=== PATIENT | female | born 1940 | race Caucasian/White ===

== ENCOUNTER → 2016-04-15 | Outpatient (CLI) | payer MEDICARE, BC ==
[2016-04-15 08:56] VITALS: BMI 39.6
== END | disposition home or self-care (01) ==
LOC: MNTWWP 08:31
PROVIDERS: ATTEND Orthopaedic Surgery
DX: Z71.3 Dietary counseling and surveillance (principal); E66.9 Obesity, unspecified
CPT/HCPCS: 97802

== ENCOUNTER → 2016-07-29 | Outpatient (CLI) | payer MEDICARE, BC ==
--- NOTE | 2016-07-29 23:53 | MR ---
EXAMINATION TYPE: MR brain wo con DATE OF EXAM: 07/29/2016 12:09 PM COMPARISON: 04/03/2010 HISTORY: 75-year-old female with TIA TECHNIQUE: Multiplanar, multisequence images of the brain and brainstem were acquired without IV con trast. Diffusion weighted imaging is performed. FINDINGS: No evidence for acute infarction, hemorrhage, mass, mass effect, midline shift, herniation, effacemen t of basal cisterns, or extra-axial fluid collection. The ventricles and sulci are age appropriate with mild generalized supratentorial volume loss. Major intracranial flow voids are intact. T2/FLAIR weighted sequences show moderate patchy and confluent bright white matter change within the subcortical, deep, and periventricular white matter of both cerebral hemispheres and extensively thro ughout the bilateral paramedian herson. Overall appearance is relatively similar to 2010. Some lesions appear slightly larger suggesting some progression in the interval. Midline structures demonstrate normal morphology. The craniocervical junction is normal. Moderate mucosal thickening within the ethmoid air cells and mild within the frontal sinuses. Mastoid air cells well pneumatized. The globes are intact. IMPRESSION: 1. Overall stable mild generalized atrophy. No acute intracranial abnormality seen. 2. Chronic T2 bright white matter changes show relatively similar moderate patchy and confluent burde n. A few scattered foci may be larger suggesting slight interval progression in chronic small vessel ischemic disease from 2010. 3. Moderate chronic ethmoid and mild frontal sinus disease.
== END | disposition home or self-care (01) ==
LOC: RADMRIMAIN 11:38
PROVIDERS: ATTEND Psychiatry & Neurology Neurology
DX: G31.9 Degenerative disease of nervous system, unspecified (principal); G93.89 Other specified disorders of brain
CPT/HCPCS: 70551

== ENCOUNTER → 2016-08-09 | Outpatient (CLI) | payer MEDICARE, BC ==
--- NOTE | 2016-08-13 14:06 | MM ---
Reason for exam: screening (asymptomatic). Last mammogram was performed 1 year ago. History: Patient is postmenopausal. Physical Findings: A clinical breast exam by your physician is recommended on an annual basis and results should be correlated with mammographic findings. MG Screening Mammo w CAD Bilateral CC and MLO view(s) were taken. Prior study comparison: August 09, 2015, bilateral MG 3d screening mammo w/cad. July 29, 2014, bilateral MG screening mammo w CAD. July 29, 2013, bilateral MG screening mammo w CAD. There are scattered fibroglandular densities. There is no discrete abnormality. ASSESSMENT: Negative, BI-RAD 1 RECOMMENDATION: Routine screening mammogram of both breasts in 1 year.
== END | disposition home or self-care (01) ==
LOC: RADMAMWWP 09:38
PROVIDERS: ATTEND Family Medicine
DX: Z12.31 Encounter for screening mammogram for malignant neoplasm of breast (principal)

== ENCOUNTER → 2016-08-15 | Outpatient (CLI) | payer MEDICARE, BC ==
[2016-08-15 13:24] LABS: INR 1.1 (<1.1); Partial Thromboplastin Time 22.7 sec (22.0-30.0); Prothrombin Time 11.3 sec (9.0-12.0)
[2016-08-15 20:38] LABS: ANA w/Reflex to Titer NEGATIVE (NEGATIVE)
[2016-08-16 05:29] LABS: Cardiolipin Ab IgG <9.0 GPL (<15); Cardiolipin Ab IgM <9.0 MPL (<12.5)
== END | disposition home or self-care (01) ==
LOC: LABWHC1 12:37
PROVIDERS: ATTEND Psychiatry & Neurology Neurology
DX: R41.3 Other amnesia (principal); I67.9 Cerebrovascular disease, unspecified; I63.9 Cerebral infarction, unspecified
CPT/HCPCS: 36415; 82306; 82607; 82747; 83090; 85610; 85652; 85730; 86038; 86147

== ENCOUNTER 2017-03-25 06:13 | Day surgery (SDC) | payer MEDICARE, BC ==
[2017-03-19 23:24] VITALS: BMI 38.2
[~2017-03-25 06:13] MED LIST: ALPRAZolam 0.25 MG TAB PO PRN; ALPRAZolam 0.5 MG TAB PO PRN; ASPIRIN 325 MG TAB PO STA; ATORVASTATIN 80 MG TAB PO STA; NITROGLYCERIN SL TABS 0.4 MG TAB SUBLINGUAL PRN; SODIUM CHLORIDE 0.9% 1,000 ML in EMPTY BAG 1 BAG IV ONE
[2017-03-25 06:53] VITALS: TEMP 98.3
[2017-03-25 07:09] LABS: Glucose,Whole Blood 170 mg/dL (75-99)
[2017-03-25] MEDS ORDERED: MIDAZOLAM 2 MG/2 ML VIAL ONE (07:27)
[2017-03-25] MEDS ORDERED: LIDOCAINE 2% INJ 20 MG/ML (20 ML MDV) ONE (07:27)
[2017-03-25] MEDS ORDERED: diphenhydrAMINE 50 MG/ML 1 ML VIAL ONE (07:27)
[2017-03-25] MEDS ORDERED: VERAPAMIL 2.5 MG/ML 2 ML AMP ONE (07:28)
[2017-03-25] MEDS ORDERED: HEPARIN SODIUM 1,000 UN/ML (10ML VL) ONE (07:34)
[2017-03-25] MEDS ORDERED: methylPREDNISolone SOD SUCCI 125 MG/2 ML VIAL ONE (07:46)
[2017-03-25] MEDS ORDERED: methylPREDNISolone SOD SUCCI 125 MG/2 ML VIAL IVP ONE (07:47)
[2017-03-25] MEDS ORDERED: diphenhydrAMINE 50 MG/ML 1 ML VIAL IVP ONE (07:47)
[2017-03-25] MEDS: MIDAZOLAM 2 MG/2 ML VIAL IVP ONE ×2 (07:48→07:53)
[2017-03-25] MEDS ORDERED: LIDOCAINE 2% INJ 20 MG/ML SQ ONE (07:49)
[2017-03-25] MEDS ORDERED: HEPARIN SODIUM 1,000 UN/ML (10ML VL) IV ONE (07:53)
[2017-03-25] MEDS: VERAPAMIL SYRINGE (5 MG/10 ML) INTRAARTER ONE ×3 (07:54→08:03)
[2017-03-25] MEDS ORDERED: IODIXANOL 320 MG/ML 100 ML INTRAARTER ONE (08:02)
[2017-03-25] MEDS ORDERED: RX INFO: IV CONTRAST WAS GIVEN 1 EACH MISC MISCELLANE PRN (08:12)
[2017-03-25] MEDS ORDERED: SODIUM CHLORIDE 0.9% 1,000 ML IV SCH (08:15)
[2017-03-25] MEDS ORDERED: LOSARTAN 50 MG TAB PO STA (08:26)
[2017-03-25] MEDS ORDERED: amLODIPine 5 MG TAB PO STA (08:26)
--- NOTE | 2017-03-25 11:41 | CC ---
CARDIAC CATHETERIZATION REPORT DATE OF SERVICE: 03/25/2017 PERFORMING PHYSICIAN: Edd Mejia MD, potato chip packaging machine operator. PROCEDURE PERFORMED: 1. Selective right and left coronary angiogram. 2. Left heart catheterization. INDICATION: This is a pleasant 76-year-old female patient who was a patient of Dr. Estefany Mcleod in the past with a known history of coronary artery disease and prior stenting of the LAD in the proximal and mid portions as well as hypertension and dyslipidemia, was experiencing chest discomfort. She underwent a myocardial perfusion imaging stress test and that revealed an anterior ischemia. In view of that, heart catheterization was recommended. APPROACH: Right radial artery. COMPLICATION: None. LEVEL OF SEDATION: Moderate with sedation length of 16 minutes. PROCEDURE DESCRIPTION: After obtaining an informed consent, the patient was brought to the cardiac oil laboratory analyst. The right radial artery was cannulated using micropuncture technique, the micropuncture wire passed easily then I placed a 6-Luxembourger sheath in the right radial artery and subsequently I gave the patient 2 mg of verapamil IA and 10,000 units of heparin IV. After that, I did selective right and left coronary angiogram using JR4 and JL3.5 catheters. Left heart catheterization was performed using 6-Luxembourger pigtail catheter. The procedure was completed without any complication. SELECTIVE CORONARY ANGIOGRAM: 1. The RCA is a large caliber vessel and it is a dominant vessel. The RCA is calcified overall. The proximal RCA appeared to be angiographically normal. The mid RCA appeared to be angiographically normal as well and the RCA distally is angiographically normal and bifurcates into PDA and PLV branches. The ostial of the PDA has mild disease only and PLV branch appeared to be angiographically normal. 2. The left main has mild disease only. It bifurcates into the left circumflex and left anterior descending artery. 3. The left circumflex is a large caliber vessel and it is a codominant vessel. The proximal left circumflex appeared to have mild disease only. It gives rise into a large OM branch, which seems to be angiographically normal. The mid left circumflex is normal and the left circumflex distally is normal and bifurcates into PDA and PLV branches. Both are angiographically normal. 4. The left anterior descending artery; the proximal LAD is stented and the stent is patent. The LAD in the proximal portion gives rise into the first diagonal branch, which seems to be a small caliber vessel and seems to be angiographically normal. The mid LAD is stented as well and the LAD in the midportion gives rise into a second diagonal branch which seems to be angiographically normal. The LAD distally is angiographically normal. HEMODYNAMICS: The left ventricular end-diastolic pressure was about 16 mmHg and no gradient was identified across the aortic valve. CONCLUSION: 1. Calcified right and left coronary systems. 2. Patent stent in the proximal and mid LAD. POSTPROCEDURE MANAGEMENT: 1. Maximize medical treatment. 2. Follow up with the patient. MMODL / IJN: [id number] /
[2017-03-25 11:49] VITALS: BP 125/59; PULSE 68; RESP 18
--- NOTE | 2017-03-25 12:05 | LTR ---
March 25, 2017. Chad Jean DO Dear Chad: Ms. Roxanna Ferrera underwent a heart catheterization and that revealed patent stents in both the proximal and mid LAD. I want to thank you for allowing me to participate in her care and please do not hesitate to call if you have any questions or concerns. Sincerely, MMODL / IJN: [id number] /
== END 2017-03-25 13:03 | disposition home or self-care (01) ==
LOC: CATHCVL 06:13
PROVIDERS: ATTEND Internal Medicine Interventional Cardiology
DX: I25.110 Atherosclerotic heart disease of native coronary artery with unstable angina pectoris (principal); I25.84 Coronary atherosclerosis due to calcified coronary lesion; I10 Essential (primary) hypertension; Z95.5 Presence of coronary angioplasty implant and graft; Z87.891 Personal history of nicotine dependence; E78.00 Pure hypercholesterolemia, unspecified; E78.5 Hyperlipidemia, unspecified; E11.9 Type 2 diabetes mellitus without complications; Z79.84 Long term (current) use of oral hypoglycemic drugs; E03.9 Hypothyroidism, unspecified; Z82.49 Family history of ischemic heart disease and other diseases of the circulatory system; Z79.82 Long term (current) use of aspirin; Z79.899 Other long term (current) drug therapy; Z91.041 Radiographic dye allergy status
CPT/HCPCS: 93458; C1894; C1769; J2001; J2250; J1200; J2930; Q9967; J1644

== ENCOUNTER → 2017-08-15 | Outpatient (CLI) | payer MEDICARE, BC ==
--- NOTE | 2017-08-18 09:41 | MM ---
Reason for exam: screening (asymptomatic). Last mammogram was performed 1 year ago. History: Patient is postmenopausal. Physical Findings: A clinical breast exam by your physician is recommended on an annual basis and results should be correlated with mammographic findings. MG 3D Screening Mammo W/Cad Bilateral CC and MLO view(s) were taken. Prior study comparison: August 09, 2016, bilateral MG screening mammo w CAD. August 09, 2015, bilateral MG 3d screening mammo w/cad. There are scattered fibroglandular densities. There is a stable right breast upper outer quadrant mass at middle depth back to 2014. No suspicious abnormality. No significant changes when compared with prior studies. ASSESSMENT: Benign, BI-RAD 2 RECOMMENDATION: Routine screening mammogram of both breasts in 1 year.
== END | disposition home or self-care (01) ==
LOC: RADMAMWWP 08:58
PROVIDERS: ATTEND Family Medicine
DX: Z12.31 Encounter for screening mammogram for malignant neoplasm of breast (principal)
CPT/HCPCS: 77063; 77067

== ENCOUNTER 2017-08-17 18:08 | Emergency (ER) | payer MEDICARE, BC ==
[2017-08-17] MEDS ORDERED: KETOROLAC 30 MG/ML 1 ML VIAL IVP STA ×2 (18:45→21:01)
--- NOTE | 2017-08-17 18:47 | ED ---
Chest Pain HPI - General Chief Complaint: Chest Pain Stated Complaint: Chest pain Time Seen by Provider: 08/17/17 18:17 Source: patient, RN notes reviewed Mode of arrival: wheelchair Limitations: no limitations - History of Present Illness Initial Comments: Is a 76-year-old female with a history of a previous cholecystectomy who states she's had pain initially started in the right upper quadrant of the right lower chest across the middle of her lower chest into her epigastric region into the left. This may going on for about 2 weeks been intermittent currently at 7/10 severity but does get much worse it increases with certain movements and deep breathing. No cough fevers chills nausea vomiting sweats no trauma. No prior history of gastritis or ulcers. It's sharp and dull and achy and different times. No other modifying factors at this time MD Complaint: chest pain, other - Related Data Home Medications Medication Instructions Recorded Confirmed Aspirin 81 mg PO HS 03/28/14 08/17/17 Atenolol [Tenormin] 50 mg PO DAILY 03/28/14 08/17/17 Atorvastatin [Lipitor] 80 mg PO HS 03/28/14 08/17/17 Baclofen 10 mg PO TID 03/28/14 08/17/17 Cholecalciferol [Vitamin D3] 5,000 unit PO DAILY 03/28/14 08/17/17 Omeprazole [PriLOSEC] 20 mg PO DAILY 03/28/14 08/17/17 Alendronate Sodium [Fosamax] 70 mg PO CORDOVA 03/19/17 08/17/17 Cyanocobalamin (Vitamin B-12) 1 tab PO MOWEFR 03/19/17 08/17/17 [Vitamin B-12] Ferrous Sulfate [Iron (65 MG 325 mg PO DAILY 03/19/17 08/17/17 Elemental)] Furosemide [Lasix] 40 mg PO DAILY 03/19/17 08/17/17 Levothyroxine Sodium [Synthroid] 137 mcg PO QAM 03/19/17 08/17/17 Losartan Potassium 100 mg PO DAILY 03/19/17 08/17/17 Magnesium 400 mg PO DAILY 03/19/17 08/17/17 Meclizine [Antivert] 25 mg PO TID PRN 03/19/17 08/17/17 [place]-3 Fatty Acids [[place]-3] 1,000 mg PO BID 03/19/17 08/17/17 Potassium 99 mg PO DAILY 03/19/17 08/17/17 Potassium/Magnesium 1 tab PO DAILY 03/19/17 08/17/17 amLODIPine [Norvasc] 5 mg PO DAILY 03/19/17 08/17/17 Previous Rx's Medication Instructions Recorded Ketorolac [Toradol] 10 mg PO Q6HR #20 tab 08/17/17 Allergies Allergy/AdvReac Type Severity Reaction Status Date / Time Iodinated Contrast- Oral and Allergy Rash/Hives Verified 08/17/17 18:11 IV Dye [Iodinated Contrast Media - IV Dye] Review of Systems ROS Statement: Those systems with pertinent positive or pertinent negative responses have been documented in the HPI. ROS Other: All systems not noted in ROS Statement are negative. EKG Findings - EKG Results: EKG: interpreted by ARIANNA, sinus rhythm (Sinus rhythm rate 66. 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, denies seizures History of Any Multi-Drug Resistant Organisms: None Reported Past Surgical History: Heart Catheterization With Stent, Hysterectomy Additional Past Surgical History / Comment(s): 2 STENTS Past Anesthesia/Blood Transfusion Reactions: No Reported Reaction Date of Last Stent Placement:: 04/07/2013 Past Psychological History: Anxiety Smoking Status: Former smoker Past Alcohol Use History: None Reported Past Drug Use History: None Reported - Past Family History Mother Family Medical History: No Reported History General Exam - General Exam Comments Initial Comments: This is a well-developed well-nourished awake alert oriented 3 female Limitations: no limitations General appearance: alert, anxious Head exam: Present: atraumatic, normocephalic, normal inspection Eye exam: Present: normal appearance, PERRL, EOMI. Absent: scleral icterus, conjunctival injection, periorbital swelling ENT exam: Present: normal exam, mucous membranes moist Neck exam: Present: normal inspection. Absent: tenderness, meningismus, lymphadenopathy Respiratory exam: Present: normal lung sounds bilaterally, chest wall tenderness (Tennis palpation of the xiphoid step-off or crepitation). Absent: respiratory distress, wheezes, rales, rhonchi, stridor Cardiovascular Exam: Present: regular rate, normal rhythm, normal heart sounds. Absent: systolic murmur, diastolic murmur, rubs, gallop, clicks GI/Abdominal exam: Present: soft, tenderness (Epigastric tenderness palpation no guarding rebound masses or bruits), normal bowel sounds. Absent: distended, guarding, rebound, rigid Extremities exam: Present: normal inspection, full ROM, normal capillary refill. Absent: tenderness, pedal edema, joint swelling, calf tenderness Back exam: Present: normal inspection Neurological exam: Present: alert, oriented X3, CN II-XII intact Psychiatric exam: Present: normal affect, normal mood Skin exam: Present: warm, dry, intact, normal color. Absent: rash Course Vital Signs 08/17/17 08/17/17 08/17/17 18:10 18:49 19:27 Temperature 98.1 F 98.4 F Pulse Rate 65 65 62 Respiratory 20 18 18 Rate Blood Pressure 157/65 157/59 162/73 O2 Sat by Pulse 100 98 99 Oximetry 08/17/17 21:00 Temperature Pulse Rate 54 L Respiratory 18 Rate Blood Pressure 150/67 O2 Sat by Pulse 97 Oximetry Chest Pain MDM - MDM I did review the imaging and reports no acute findings. Patient was getting relief from the initial medication the presentation is more consistent with muscle scalp no pain. Patient will be discharged she does have hypomagnesemia she'll be given supplements. She'll follow-up with her doctor return when necessary Disposition Clinical Impression: Chest wall syndrome, Abdominal wall pain Disposition: HOME SELF-CARE Condition: Good Instructions: Abdominal Pain (ED), Chest Wall Pain (ED) Prescriptions: Ketorolac [Toradol] 10 mg PO Q6HR #20 tab Is patient prescribed a controlled substance at d/c from ED?: No Referrals: Chad Jean DO [Primary Care Provider] - 1-2 days
[2017-08-17 18:50] VITALS: RESP 18
[2017-08-17 19:02] LABS: ALT 26 U/L (9-52); AST 22 U/L (14-36); Albumin 4.5 g/dL (3.5-5.0); Alkaline Phosphatase 64 U/L (38-126); Amylase 91 U/L (30-110); Anion Gap 19 mmol/L; Blood Urea Nitrogen 13 mg/dL (7-17); Carbon Dioxide 23 mmol/L (22-30); Chloride 104 mmol/L (98-107); Glucose 172 mg/dL (74-99); Lipase 112 U/L (23-300); Magnesium 1.5 mg/dL (1.6-2.3); Potassium 3.9 mmol/L (3.5-5.1); Sodium 146 mmol/L (137-145); Total Bilirubin 0.8 mg/dL (0.2-1.3); Total Protein 7.4 g/dL (6.3-8.2)
[2017-08-17 19:06] LABS: Creatine Kinase 39 U/L (30-135)
[2017-08-17 19:13] LABS: Basophils % (A) 1 %; Eosinophils # (A) 0.2 k/uL (0-0.7); Eosinophils % (A) 3 %; HCT 37.9 % (34.0-46.0); HGB 12.6 gm/dL (11.4-16.0); Lymphocytes # (A) 1.8 k/uL (1.0-4.8); Lymphocytes % (A) 21 %; MCHC 33.2 g/dL (31.0-37.0); MCV 87.5 fL (80.0-100.0); Mean Platelet Volume 7.3; Monocytes # (A) 0.3 k/uL (0-1.0); Monocytes % (A) 4 %; Neutrophils % (A) 71 %; Platelet Count 219 k/uL (150-450); RBC 4.33 m/uL (3.80-5.40); RDW 14.5 % (11.5-15.5); WBC 8.5 k/uL (3.8-10.6)
[2017-08-17 19:19] LABS: Creatine Kinase MB <0.2 ng/mL (0.0-2.4); Troponin I <0.012 ng/mL (0.000-0.034)
--- NOTE | 2017-08-17 19:23 | XR ---
EXAMINATION TYPE: XR chest 2V DATE OF EXAM: 08/17/2017 COMPARISON: Chest x-ray October 01, 2012 HISTORY: Chest pain for 2 weeks TECHNIQUE: Frontal and lateral views of the chest are obtained. FINDINGS: There is chronic emphysematous change without suspicious focal air space opacity, pleural effusion, or pneumothorax seen. The cardiac silhouette size remains enlarged with ectatic descending aorta. The osseous structures are intact. IMPRESSION: Chronic emphysematous change and cardiomegaly without acute pulmonary process. Note sign ificant change from prior.
[2017-08-17 19:38] LABS: D-Dimer 0.33 mg/L FEU (<0.60); INR 1.1 (<1.2); Prothrombin Time 10.6 sec (9.0-12.0)
[2017-08-17 19:41] LABS: Partial Thromboplastin Time 21.8 sec (22.0-30.0)
[2017-08-17] MEDS ORDERED: MAGNESIUM SULFATE-D5W PMX 1 GM in DEXTROSE/WATER 1 100ML.BAG IVPB ONE (21:00)
[2017-08-17 21:59] VITALS: BP 150/68; PULSE 62; TEMP 97.6
== END 2017-08-17 22:25 | disposition home or self-care (01) ==
LOC: EC 18:08
DX: R07.1 Chest pain on breathing (principal); R10.11 Right upper quadrant pain; R10.13 Epigastric pain; E83.42 Hypomagnesemia; K21.9 Gastro-esophageal reflux disease without esophagitis; E78.5 Hyperlipidemia, unspecified; I10 Essential (primary) hypertension; E07.9 Disorder of thyroid, unspecified; M81.0 Age-related osteoporosis without current pathological fracture; Z95.5 Presence of coronary angioplasty implant and graft; Z87.891 Personal history of nicotine dependence; Z90.49 Acquired absence of other specified parts of digestive tract; Z79.82 Long term (current) use of aspirin; Z79.899 Other long term (current) drug therapy; Z91.041 Radiographic dye allergy status
CPT/HCPCS: 99285; 96365; 96375; 96376; 36415; 93005; 85379; 80053; 82150; 82550; 82553; 83690; 83735; 84484; 85025; 85610; 85730; 71046; J1885; J3475

== ENCOUNTER → 2017-09-03 | Outpatient (CLI) | payer MEDICARE, BC ==
[2017-09-03 10:32] LABS: Anion Gap 12 mmol/L; Blood Urea Nitrogen 18 mg/dL (7-17); Calcium 9.9 mg/dL (8.4-10.2); Carbon Dioxide 28 mmol/L (22-30); Chloride 99 mmol/L (98-107); Glucose 131 mg/dL (74-99); Magnesium 1.5 mg/dL (1.6-2.3); Potassium 4.4 mmol/L (3.5-5.1); Sodium 139 mmol/L (137-145)
== END | disposition home or self-care (01) ==
LOC: LABWHC1 09:44
PROVIDERS: ATTEND Nurse Practitioner Adult Health
DX: I10 Essential (primary) hypertension (principal)
CPT/HCPCS: 36415; 80048; 83735

== ENCOUNTER → 2018-09-14 | Outpatient (CLI) | payer MEDICARE, BC ==
--- NOTE | 2018-09-14 09:38 | MM ---
Reason for exam: screening (asymptomatic). Last mammogram was performed 1 year and 1 month ago. History: Patient is postmenopausal. Physical Findings: A clinical breast exam by your physician is recommended on an annual basis and results should be correlated with mammographic findings. MG 3D Screening Mammo W/Cad Bilateral CC and MLO view(s) were taken. Prior study comparison: August 15, 2017, bilateral MG 3d screening mammo w/cad. August 09, 2016, bilateral MG screening mammo w CAD. August 09, 2015, bilateral MG 3d screening mammo w/cad. July 29, 2014, bilateral MG screening mammo w CAD. The breast tissue is heterogeneously dense. This may lower the sensitivity of mammography. No suspicious abnormality. No significant changes when compared with prior studies. ASSESSMENT: Negative, BI-RAD 1 RECOMMENDATION: Routine screening mammogram of both breasts in 1 year.
== END | disposition home or self-care (01) ==
LOC: RADMAMWWP 07:15
PROVIDERS: ATTEND Family Medicine
DX: Z12.31 Encounter for screening mammogram for malignant neoplasm of breast (principal)
CPT/HCPCS: 77063; 77067

== ENCOUNTER → 2018-10-28 | Outpatient (CLI) | payer MEDICARE, BC ==
--- NOTE | 2018-10-28 13:08 | CT ---
EXAMINATION TYPE: CT abdomen pelvis wo con DATE OF EXAM: 10/28/2018 COMPARISON: 08/09/2015 HISTORY: Abdominal and pelvic pain CT DLP: 965.2 mGycm Automated exposure control for dose reduction was used. TECHNIQUE: Helical acquisition of images was performed from the lung bases through the pelvis. FINDINGS: LUNG BASES: 3 mm nodule within the each lung base. Heart is enlarged. Coronary artery calcification n oted.. LIVER/GB: Postcholecystectomy changes noted. PANCREAS: No significant abnormality is seen. SPLEEN: No significant abnormality is seen. ADRENALS: No significant abnormality is seen. KIDNEYS: No significant abnormality is seen. ADENOPATHY: None visualized. OSSEOUS STRUCTURES: Hypertrophic and degenerative change of the spine. Arthropathy of the hips. BOWEL: Diverticulosis of the colon with no CT evidence of diverticulitis. Bowel gas pattern nonspeci fic. Appendix not seen with certainty. Small hiatal hernia. OTHER: There is a anterior abdominal wall hernia within the lower abdomen containing peritoneal fat. IMPRESSION: 1. Anterior abdominal wall hernia on the left containing peritoneal fat 2. sigmoid diverticulosis 3. Less than 5 mm pulmonary nodules for which follow-up CT chest recommended
== END | disposition home or self-care (01) ==
LOC: RADCTMAIN 12:10
PROVIDERS: ATTEND Family Medicine
DX: K57.30 Diverticulosis of large intestine without perforation or abscess without bleeding (principal); K43.9 Ventral hernia without obstruction or gangrene; Z91.041 Radiographic dye allergy status
CPT/HCPCS: 74176

== ENCOUNTER → 2018-11-13 | Outpatient (CLI) | payer MEDICARE, BC ==
[2018-11-13 09:50] LABS: Basophils # (A) 0.1 k/uL (0-0.2); Basophils % (A) 1 %; Eosinophils # (A) 0.3 k/uL (0-0.7); Eosinophils % (A) 6 %; HCT 35.9 % (34.0-46.0); HGB 11.7 gm/dL (11.4-16.0); Lymphocytes # (A) 1.3 k/uL (1.0-4.8); Lymphocytes % (A) 25 %; MCH 28.9 pg (25.0-35.0); MCHC 32.5 g/dL (31.0-37.0); Mean Platelet Volume 7.2; Monocytes # (A) 0.2 k/uL (0-1.0); Monocytes % (A) 4 %; Neutrophils # (A) 3.3 k/uL (1.3-7.7); Neutrophils % (A) 62 %; Platelet Count 194 k/uL (150-450); RBC 4.04 m/uL (3.80-5.40); RDW 15.1 % (11.5-15.5); WBC 5.2 k/uL (3.8-10.6)
== END | disposition home or self-care (01) ==
LOC: LABPAT 08:44
PROVIDERS: ATTEND Surgery
DX: Z01.818 Encounter for other preprocedural examination (principal); Z01.812 Encounter for preprocedural laboratory examination; K43.0 Incisional hernia with obstruction, without gangrene
CPT/HCPCS: 36415; 85025; 93005

== ENCOUNTER 2018-11-17 06:49 | Day surgery (SDC) | payer MEDICARE, BC ==
[2018-11-11 11:56] VITALS: BMI 36.9
[2018-11-17 07:22] VITALS: TEMP 97.6
[2018-11-17] MEDS: LACTATED RINGERS 1,000 ML IV SCH ×2 (07:28→07:57)
[2018-11-17 07:29] LABS: Glucose,Whole Blood 143 mg/dL (75-99)
[2018-11-17] MEDS ORDERED: PROPOFOL 10 MG/ML 20 ML VIAL IV ONE (07:44)
--- NOTE | 2018-11-17 07:47 | P.GSHP ---
History of Present Illness H&P Date: 11/17/18 Chief Complaint: Epigastric abdominal pain This is a 71 suture female complaints of epigastric dull pain. Patient presents today for EGD. 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 HAVING EGD 11/17/18 Past Anesthesia/Blood Transfusion Reactions: No Reported Reaction Date of Last Stent Placement:: 04/07/2013 Smoking Status: Former smoker - Past Family History Mother Family Medical History: No Reported History Medications and Allergies Home Medications Medication Instructions Recorded Confirmed Type Aspirin 81 mg PO HS 03/28/14 11/17/18 History Atorvastatin [Lipitor] 80 mg PO HS 03/28/14 11/11/18 History Cholecalciferol [Vitamin D3 (25 5,000 unit PO DAILY 03/28/14 11/11/18 History Mcg = 1000 Iu)] Omeprazole [PriLOSEC] 20 mg PO DAILY 03/28/14 11/11/18 History Alendronate Sodium [Fosamax] 70 mg PO CORDOVA 03/19/17 11/11/18 History Furosemide [Lasix] 40 mg PO DAILY 03/19/17 11/11/18 History Levothyroxine Sodium [Synthroid] 137 mcg PO QAM 03/19/17 11/17/18 History Meclizine [Antivert] 25 mg PO TID PRN 03/19/17 11/11/18 History [place]-3 Fatty Acids [[place]-3] 1,000 mg PO BID 03/19/17 11/11/18 History Potassium 99 mg PO DAILY 03/19/17 11/11/18 History Chloride Silver 1 tbsp PO BID 11/11/18 11/11/18 History Clopidogrel [Plavix] 75 mg PO DAILY 11/11/18 11/11/18 History Dicyclomine [Bentyl] 10 mg PO BID 11/11/18 11/11/18 History Divalproex [Depakote] 500 mg PO DAILY 11/11/18 11/17/18 History Lisinopril [Zestril] 2.5 mg PO QAM 11/11/18 11/17/18 History [place] 1 tsp PO DAILY 11/11/18 11/11/18 History Vitamin B Complex 1 each PO DAILY 11/11/18 11/11/18 History metFORMIN HCL [Glucophage] 500 mg PO TID 11/11/18 11/17/18 History rOPINIRole HCL 0.5 mg PO HS 11/11/18 11/11/18 History Allergies Allergy/AdvReac Type Severity Reaction Status Date / Time Iodinated Contrast- Oral and Allergy Rash/Hives Verified 11/11/18 12:10 IV Dye [Iodinated Contrast Media - IV Dye] Surgical - Exam Vital Signs Temp Pulse Resp BP Pulse Ox 97.6 F 68 17 195/85 97 11/17/18 07:17 11/17/18 07:17 11/17/18 07:17 11/17/18 07:17 11/17/18 07:17 - General well developed, well nourished, no distress - Eyes PERRL - ENT normal pinna - Neck no masses - Respiratory normal expansion - Cardiovascular Rhythm: regular - Abdomen Abdomen: soft, non tender Results - Labs Abnormal Lab Results - Last 24 Hours (Table) 11/17/18 Range/Units 07:25 POC Glucose (mg/dL) 143 H (75-99) mg/dL Assessment and Plan Assessment: Epigastric abdominal pain. We'll perform EGD to evaluate for gastritis.
--- NOTE | 2018-11-17 07:58 | P.OP ---
Date of Procedure: 11/17/18 Preoperative Diagnosis: Gastritis Postoperative Diagnosis: Mild antral gastritis Procedure(s) Performed: EGD Anesthesia: MAC Surgeon: Jalen Katz Pathology: other (Antrum, duodenum, esophagus) Condition: stable Disposition: PACU Description of Procedure: The patient's placed on the endoscopy table in the lateral position. She received IV sedation. The gastroscope placed oropharynx passed in the esophagus and stomach. Scope was then placed through the pylorus. The first and second portion of the duodenum appeared normal, a random biopsies performed.. Scope was then brought back the antrum and this appeared mildly inflamed and a biopsies performed. Scope was then retroflexed and the patient had a small hiatal hernia. The GE junction was at 38 cm the distal esophagus appeared normal. This was biopsied. The proximal esophagus appeared normal. Scope was withdrawn for patient..
[2018-11-17 08:11] VITALS: RESP 16
[2018-11-17 08:21] VITALS: BP 140/65; PULSE 59
== END 2018-11-17 08:33 | disposition home or self-care (01) ==
LOC: ORWHC2ENDO 06:49
PROVIDERS: ATTEND Surgery
DX: K29.50 Unspecified chronic gastritis without bleeding (principal); K21.0 Gastro-esophageal reflux disease with esophagitis; K44.9 Diaphragmatic hernia without obstruction or gangrene; I25.10 Atherosclerotic heart disease of native coronary artery without angina pectoris; I10 Essential (primary) hypertension; E11.9 Type 2 diabetes mellitus without complications; E78.5 Hyperlipidemia, unspecified; E07.9 Disorder of thyroid, unspecified; G40.909 Epilepsy, unspecified, not intractable, without status epilepticus; G25.81 Restless legs syndrome; M19.90 Unspecified osteoarthritis, unspecified site; M81.0 Age-related osteoporosis without current pathological fracture; L98.9 Disorder of the skin and subcutaneous tissue, unspecified; Z91.041 Radiographic dye allergy status; Z87.891 Personal history of nicotine dependence; Z79.83 Long term (current) use of bisphosphonates; Z79.02 Long term (current) use of antithrombotics/antiplatelets; Z79.82 Long term (current) use of aspirin; Z79.899 Other long term (current) drug therapy; Z79.890 Hormone replacement therapy; Z79.84 Long term (current) use of oral hypoglycemic drugs; Z95.5 Presence of coronary angioplasty implant and graft; Z90.49 Acquired absence of other specified parts of digestive tract; Z90.710 Acquired absence of both cervix and uterus
CPT/HCPCS: 88305; 43239; J2704

== ENCOUNTER 2018-11-23 07:05 | Day surgery (SDC) | payer MEDICARE, BC ==
[2018-11-11 12:18] VITALS: BMI 36.9
[~2018-11-23 07:05] MED LIST changes: -ALPRAZolam 0.25 MG TAB PO PRN; -ALPRAZolam 0.5 MG TAB PO PRN; -ASPIRIN 325 MG TAB PO STA; -ATORVASTATIN 80 MG TAB PO STA; +DEXAMETHASONE SOD PHOSPHATE 10 MG/ML 1 ML VIAL IV ONE; +HEPARIN SODIUM,PORCINE 5,000 UNIT/ML 1 ML VIAL SQ ONE; +LACTATED RINGERS 1,000 ML IV SCH; +MIDAZOLAM 2 MG/2 ML VIAL IV PRN; -NITROGLYCERIN SL TABS 0.4 MG TAB SUBLINGUAL PRN; +ONDANSETRON 4 MG/2 ML VIAL IVP ONE; -SODIUM CHLORIDE 0.9% 1,000 ML in EMPTY BAG 1 BAG IV ONE
[2018-11-23 07:40] LABS: Glucose,Whole Blood 146 mg/dL (75-99)
--- NOTE | 2018-11-23 08:54 | P.GSHP ---
History of Present Illness H&P Date: 11/23/18 Chief Complaint: Recurrent incisional hernia This is a 78-year-old female who presents today for open repair of recurrent incisional hernia. Patient has a previous low midline incision. She has developed multiple small hernias along this incision. 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 HAVING EGD 11/17/18 Past Anesthesia/Blood Transfusion Reactions: No Reported Reaction Date of Last Stent Placement:: 04/07/2013 Smoking Status: Former smoker - Past Family History Mother Family Medical History: No Reported History Medications and Allergies Home Medications Medication Instructions Recorded Confirmed Type Aspirin 81 mg PO HS 03/28/14 11/23/18 History Atorvastatin [Lipitor] 80 mg PO HS 03/28/14 11/23/18 History Cholecalciferol [Vitamin D3 (25 5,000 unit PO DAILY 03/28/14 11/23/18 History Mcg = 1000 Iu)] Omeprazole [PriLOSEC] 20 mg PO DAILY 03/28/14 11/23/18 History Alendronate Sodium [Fosamax] 70 mg PO CORDOVA 03/19/17 11/23/18 History Furosemide [Lasix] 40 mg PO DAILY 03/19/17 11/23/18 History Levothyroxine Sodium [Synthroid] 137 mcg PO QAM 03/19/17 11/23/18 History Meclizine [Antivert] 25 mg PO TID PRN 03/19/17 11/23/18 History [place]-3 Fatty Acids [[place]-3] 1,000 mg PO BID 03/19/17 11/23/18 History Potassium 99 mg PO DAILY 03/19/17 11/23/18 History Chloride Silver 1 tbsp PO BID 11/11/18 11/23/18 History Clopidogrel [Plavix] 75 mg PO DAILY 11/11/18 11/23/18 History Dicyclomine [Bentyl] 10 mg PO BID 11/11/18 11/23/18 History Divalproex [Depakote] 500 mg PO DAILY 11/11/18 11/23/18 History Lisinopril [Zestril] 2.5 mg PO QAM 11/11/18 11/23/18 History [place] 1 tsp PO DAILY 11/11/18 11/23/18 History Vitamin B Complex 1 each PO DAILY 11/11/18 11/23/18 History metFORMIN HCL [Glucophage] 500 mg PO TID 11/11/18 11/23/18 History rOPINIRole HCL 0.5 mg PO HS 11/11/18 11/23/18 History Allergies Allergy/AdvReac Type Severity Reaction Status Date / Time Iodinated Contrast- Oral and Allergy Rash/Hives Verified 11/23/18 07:13 IV Dye [Iodinated Contrast Media - IV Dye] Surgical - Exam Vital Signs Temp Pulse Resp BP Pulse Ox 97.2 F L 57 L 16 196/88 97 11/23/18 07:30 11/23/18 07:30 11/23/18 07:30 11/23/18 07:30 11/23/18 07:30 - General well developed, well nourished, no distress - Eyes PERRL - ENT normal pinna - Neck no masses - Respiratory normal expansion - Cardiovascular Rhythm: regular - Abdomen Abdomen: soft, non tender Hernia: incisional (Incisional hernia located in the low midline position. It is incarcerated) Results - Labs Abnormal Lab Results - Last 24 Hours (Table) 11/23/18 Range/Units 07:38 POC Glucose (mg/dL) 146 H (75-99) mg/dL Assessment and Plan Assessment: Incisional hernia. We'll perform open repair.
[2018-11-23] MEDS ORDERED: HYDROmorphone (PF) 1 MG/ML ONE (09:20)
[2018-11-23] MEDS ORDERED: NEOSTIGMINE 1 MG/ML 10 ML VIAL ONE (09:20)
[2018-11-23] MEDS ORDERED: KETOROLAC 30 MG/ML 1 ML VIAL ONE (09:20)
[2018-11-23] MEDS ORDERED: PROPOFOL 10 MG/ML 20 ML VIAL IV ONE (09:20)
[2018-11-23] MEDS ORDERED: GLYCOPYRROLATE 0.2 MG/ML 2 ML VIAL ONE (09:20)
[2018-11-23] MEDS ORDERED: ROCURONIUM BROMIDE 10 MG/ML 10 ML VIAL IV ONE (09:20)
[2018-11-23] MEDS ORDERED: LIDOCAINE 1% INJ 10MG/ML (20 ML MDV) ONE (09:20)
[2018-11-23] MEDS ORDERED: fentaNYL (PF) 50 MCG/ML 2 ML AMP ONE (09:20)
[2018-11-23] MEDS ORDERED: SUCCINYLCHOLINE CHLORIDE 100 MG/5 ML SYR IV ONE (09:20)
[2018-11-23] MEDS ORDERED: MIDAZOLAM 2 MG/2 ML VIAL ONE (09:20)
[2018-11-23] MEDS ORDERED: ONDANSETRON 4 MG/2 ML VIAL IVP PRN (10:31)
[2018-11-23] MEDS ORDERED: NALOXONE 0.4 MG/ML 1 ML VIAL IV PRN (10:31)
[2018-11-23] MEDS ORDERED: traMADol 50 MG TAB PO PRN (10:31)
[2018-11-23] MEDS: HYDROmorphone 0.5 MG/0.5 ML SYRINGE IVP PRN ×6 (10:33→21:25)
[2018-11-23] MEDS ORDERED: diphenhydrAMINE 50 MG/ML 1 ML VIAL IVP ONE (10:36)
[2018-11-23] MEDS: MEPERIDINE 50 MG/ML SYRINGE IVP ONE ×2 (10:44→10:57)
--- NOTE | 2018-11-23 10:45 | P.OP ---
Date of Procedure: 11/23/18 Preoperative Diagnosis: Incisional hernia Postoperative Diagnosis: Incisional hernia Procedure(s) Performed: Open repair of incisional hernia with mesh Lysis of adhesions Anesthesia: MARTINA Surgeon: Jalen Katz IV fluids (ml): 10 Pathology: none sent Condition: stable Disposition: PACU Description of Procedure: The patient's placed on the operative table in the supine position. She received general anesthesia. Her abdomen was prepped and draped usual sterile fashion. The patient a previous low midline scar. There was an incisional hernia located in the midportion of the scar. The skin was incised and using electrocautery the subcutaneous tissue divided. The hernia sac was opened. The fascia external oblique was exposed. Approximately 20 minutes operative time used to lyse adhesions below the fascia. Next the fascia was reapproximated using #1 strap to fix suture. And then Prolene mesh was placed over top apparent secured secured strap tacker. A SARAI drains placed over top the mesh and brought through separate stab incision. Lynda's fascia closed with 0 Vicryl. Skin was closed valeri. Silverlon dressing was applied. Patient top she will was sent to recovery room in stable condition.
[2018-11-23] MEDS: LACTATED RINGERS 1,000 ML IV ONE ×2 (10:58→11:28)
[2018-11-23] MEDS ORDERED: hydrALAZINE HCL 20 MG/ML 1 ML VIAL IVP ONE (11:05)
[2018-11-23 11:07] LABS: Glucose,Whole Blood 215 mg/dL (75-99)
[2018-11-23] MEDS ORDERED: MECLIZINE 25 MG TAB PO PRN (13:13)
[2018-11-23] MEDS: metFORMIN 500 MG TAB PO SCH ×2 (17:29→21:35)
[2018-11-23] MEDS: ATORVASTATIN 80 MG TAB PO SCH (21:34)
[2018-11-24] MEDS: HYDROmorphone 0.5 MG/0.5 ML SYRINGE IVP PRN ×5 (01:10→22:45)
[2018-11-24] MEDS: PANTOPRAZOLE 40 MG TABLET PO SCH (06:39)
[2018-11-24] MEDS: LEVOTHYROXINE 137 MCG TAB PO SCH (06:39)
[2018-11-24 07:25] LABS: Basophils % (A) 0 %; Eosinophils % (A) 0 %; HCT 32.4 % (34.0-46.0); HGB 10.3 gm/dL (11.4-16.0); Lymphocytes # (A) 1.2 k/uL (1.0-4.8); Lymphocytes % (A) 14 %; MCH 28.1 pg (25.0-35.0); MCHC 31.9 g/dL (31.0-37.0); MCV 88.2 fL (80.0-100.0); Monocytes # (A) 0.5 k/uL (0-1.0); Monocytes % (A) 5 %; Neutrophils # (A) 7.1 k/uL (1.3-7.7); Neutrophils % (A) 79 %; Platelet Count 164 k/uL (150-450); RBC 3.68 m/uL (3.80-5.40); RDW 14.7 % (11.5-15.5); WBC 8.9 k/uL (3.8-10.6)
[2018-11-24 07:37] LABS: African American GFR (CKD) >90 (>60 ml/min/1.73 sqM); Anion Gap 9 mmol/L; Blood Urea Nitrogen 13 mg/dL (7-17); Calcium 9.3 mg/dL (8.4-10.2); Carbon Dioxide 28 mmol/L (22-30); Chloride 101 mmol/L (98-107); Glucose 134 mg/dL (74-99); Potassium 4.2 mmol/L (3.5-5.1); Sodium 138 mmol/L (137-145)
[2018-11-24] MEDS: DIVALPROEX 500 MG TABLET.DR PO SCH (09:10)
[2018-11-24] MEDS: LISINOPRIL 2.5 MG TAB PO SCH (09:10)
[2018-11-24] MEDS: ENOXAPARIN 40 MG/0.4 ML SYRINGE SQ SCH (09:10)
[2018-11-24] MEDS: FUROSEMIDE 40 MG TAB PO SCH (09:10)
[2018-11-24] MEDS: metFORMIN 500 MG TAB PO SCH ×3 (09:11→21:10)
--- NOTE | 2018-11-24 12:38 | P.PN ---
Subjective Progress Note Date: 11/24/18 CHIEF COMPLAINT: incisional hernia HISTORY OF PRESENT ILLNESS: patient is status post repair of incisional hernia. Postop day #1. Patient examined this morning at the bedside. Patient reports her pain is tolerable. Tolerating diet. denies nausea or vomiting. She reports some dysphagia which she states is chronic for her. Voiding without difficulty. SARAI drain with serosanguineous drainage. WBC 8.9. Vital signs stable. She has been afebrile. PHYSICAL EXAM: VITAL SIGNS: Reviewed. GENERAL: Well-developed in no acute distress. HEENT: No sclera icterus. Extraocular movements grossly intact. Moist buccal mucosa. Head is atraumatic, normocephalic. ABDOMEN: Soft. Nondistended. Appropriate surgical tenderness. SARAI drain with serosanguineous drainage. Abdominal binder present. NEUROLOGIC: Alert and oriented. Cranial nerves II through XII grossly intact. ASSESSMENT: 1. Status post repair of incisional hernia PLAN: 1. Continue diet as tolerated 2. Increase activity as tolerated. Patient encouraged to be OOB and ambulatory today 3. Pain control. Continue Almond. Avoid IV Dilaudid if pain is controlled with Almond 4. Patient states she is unable to be discharged home today and does not feel ready. Will hold DC today per Dr. Katz. Will discharge home tomorrow morning. Nurse practitioner note has been reviewed by physician. Signing provider agrees with the documented findings, assessment, and plan of care. Objective - Vital Signs Vital signs: Vital Signs Temp 98.1 F 11/24/18 08:00 Pulse 78 11/24/18 08:00 Resp 17 11/24/18 08:00 BP 153/64 11/24/18 08:00 Pulse Ox 96 11/24/18 08:00 Intake & Output 11/23/18 11/24/18 11/24/18 18:59 06:59 18:59 Intake Total 1200 Output Total 10 90 Balance 1190 -90 Weight 97.069 kg Intake: IV 1200 Output: Drainage 90 Anterior Abdomen 90 Estimated Blood Loss 10 Other: # Voids 0 2 2 - Labs CBC & Chem 7: 11/24/18 07:02 11/24/18 07:02 Labs: Abnormal Lab Results - Last 24 Hours (Table) 11/24/18 11/24/18 Range/Units 07:02 07:02 RBC 3.68 L (3.80-5.40) m/uL Hgb 10.3 L (11.4-16.0) gm/dL Hct 32.4 L (34.0-46.0) % Glucose 134 H (74-99) mg/dL
--- NOTE | 2018-11-24 15:28 | P.CONS ---
History of Present Illness - Reason for Consult Consult date: 11/24/18 Medical management diabetes mellitus, hypertension, seizure disorder Requesting physician: Jalen Katz - Chief Complaint Recurrent hernia - History of Present Illness This is a 78-year-old female with history of diabetes mellitus, gastroesophageal reflux disease, hyperlipidemia, hypertension, osteoarthritis, seizure disorder, hypothyroidism, former nicotine dependence and multiple other medical issues, status post open repair of recurrent incisional hernia. Tolerated procedure well. Pain controlled. Reports chronic dysphagia, with pills and certain foods. tolerating consistent carb diet with no nausea vomiting or diarrhea. Blood sugars controlled. Afebrile, WBC 8.9. Ambulating to bathroom, no bowel movement, passing flatus. Occasional myoclonus jerk present-chronic. Hemoglobin 10.3. Vital signs stable. Review of Systems ROS Other: All systems not noted in ROS Statement are negative. ROS Statement: Those systems with pertinent positive or pertinent negative responses have been documented in the HPI. 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, VERTIGO History of Any Multi-Drug Resistant Organisms: None Reported Past Surgical History: Cholecystectomy, Heart Catheterization With Stent, Hysterectomy Additional Past Surgical History / Comment(s): 2 STENTS Past Anesthesia/Blood Transfusion Reactions: No Reported Reaction Date of Last Stent Placement:: 04/07/2013 Past Psychological History: No Psychological Hx Reported Additional Psychological History / Comment(s): STATES R/T FAMILY ISSUES Smoking Status: Former smoker Past Alcohol Use History: None Reported Additional Past Alcohol Use History / Comment(s): STATES QUIT 1973, SMOKED 2- 3PPD FOR APPROX 10 YRS Past Drug Use History: None Reported - Past Family History Mother Family Medical History: No Reported History Medications and Allergies Home Medications Medication Instructions Recorded Confirmed Type Aspirin 81 mg PO HS 03/28/14 11/23/18 History Atorvastatin [Lipitor] 80 mg PO HS 03/28/14 11/23/18 History Cholecalciferol [Vitamin D3 (25 5,000 unit PO DAILY 03/28/14 11/23/18 History Mcg = 1000 Iu)] Omeprazole [PriLOSEC] 20 mg PO DAILY 03/28/14 11/23/18 History Alendronate Sodium [Fosamax] 70 mg PO CORDOVA 03/19/17 11/23/18 History Furosemide [Lasix] 40 mg PO DAILY 03/19/17 11/23/18 History Levothyroxine Sodium [Synthroid] 137 mcg PO QAM 03/19/17 11/23/18 History Meclizine [Antivert] 25 mg PO TID PRN 03/19/17 11/23/18 History [place]-3 Fatty Acids [[place]-3] 1,000 mg PO BID 03/19/17 11/23/18 History Potassium 99 mg PO DAILY 03/19/17 11/23/18 History Chloride Silver 1 tbsp PO BID 11/11/18 11/23/18 History Clopidogrel [Plavix] 75 mg PO DAILY 11/11/18 11/23/18 History Dicyclomine [Bentyl] 10 mg PO BID 11/11/18 11/23/18 History Divalproex [Depakote] 500 mg PO DAILY 11/11/18 11/23/18 History Lisinopril [Zestril] 2.5 mg PO QAM 11/11/18 11/23/18 History [place] 1 tsp PO DAILY 11/11/18 11/23/18 History Vitamin B Complex 1 each PO DAILY 11/11/18 11/23/18 History metFORMIN HCL [Glucophage] 500 mg PO TID 11/11/18 11/23/18 History rOPINIRole HCL 0.5 mg PO HS 11/11/18 11/23/18 History Hydrocodone/Acetaminophen [[place] 1 tab PO Q4HR PRN 3 Days #18 tab 11/23/18 Rx 5-325] Allergies Allergy/AdvReac Type Severity Reaction Status Date / Time Iodinated Contrast- Oral and Allergy Rash/Hives Verified 11/23/18 11:51 IV Dye [Iodinated Contrast Media - IV Dye] Physical Exam Vitals: Vital Signs Temp Pulse Resp BP Pulse Ox 11/24/18 12:45 98.1 F 74 16 151/81 96 11/24/18 08:00 98.1 F 78 17 153/64 96 11/24/18 04:50 98.1 F 70 16 145/66 95 11/24/18 00:30 97.9 F 68 18 135/76 95 11/23/18 20:12 98.4 F 74 18 147/78 94 L 11/23/18 15:30 66 18 149/76 96 Intake and Output 11/24/18 11/24/18 11/24/18 06:59 14:59 22:59 Output Total 65 45 Balance -65 -45 Output: Drainage 65 45 Anterior Abdomen 65 45 Other: # Voids 2 3 PHYSICAL EXAM: VITAL SIGNS: [As above] GENERAL: Sitting up in bed, no acute distress HEENT: Conjunctivae normal. eyes normal. Oral mucosa moist NECK: No JVD. No thyroid enlargement. No LNs CARDIOVASCULAR: S1, S2 regular.. No murmur RESPIRATION: Breath sounds diminished in the bases. No rhonchi or crackles. No expiratory wheezing .No bronchial breathing. ABDOMEN: Soft, status post surgery. No guarding. SARIA with serosanguineous drainage. Abdominal binder present. Bowel sounds heard. LEGS: No edema. no swelling PSYCHIATRY: Alert and oriented X3, mood and affect normal. NERVOUS SYSTEM: Cranial N 2-12 grossly normal. Moves all 4 limbs. Diffuse weakness, No focal deficits. Strength and sensation grossly intact.. Skin: no lesions, no rash Results CBC & Chem 7: 11/24/18 07:02 11/24/18 07:02 Labs: Abnormal Lab Results - Last 24 Hours (Table) 11/24/18 11/24/18 Range/Units 07:02 07:02 RBC 3.68 L (3.80-5.40) m/uL Hgb 10.3 L (11.4-16.0) gm/dL Hct 32.4 L (34.0-46.0) % Glucose 134 H (74-99) mg/dL Assessment and Plan Assessment: Status post open repair of recurrent incisional hernia -Postop anemia to be expected -Diabetes mellitus -Gastroesophageal reflux disease -Hypertension -hyperlipidemia -OA -Seizure disorder -Hypothyroidism -Myoclonus jerks -Former nicotine dependence Plan: Continue on current medication regime ,monitoring and symptomatic treatment. Aggressive pulmonary toileting with incentive spirometer reinforced. Increase ambulation as tolerated. Pain management as per surgery. Close monitoring of hemoglobin with repeat labs ordered for a.m. close monitoring of Accu-Cheks. Discharge planning in progress for tomorrow as per surgery. Further recommendations to follow. Thank you Dr. Bhesani for the consult. The impression and plan of care has been dictated as directed. : I performed a history and examination of this patient, discussed the same with the dictator. I agree with the dictator's note ,documented as a scribe. Any additional findings or plans will be noted.
[2018-11-24] MEDS: ATORVASTATIN 80 MG TAB PO SCH (21:10)
[2018-11-25] MEDS: HYDROcodone/APAP 5-325MG 1 EACH TAB PO PRN ×2 (04:16→09:17)
[2018-11-25] MEDS: LEVOTHYROXINE 137 MCG TAB PO SCH (06:03)
[2018-11-25] MEDS: PANTOPRAZOLE 40 MG TABLET PO SCH (06:03)
[2018-11-25 07:22] LABS: Basophils % (A) 0 %; Eosinophils # (A) 0.1 k/uL (0-0.7); Eosinophils % (A) 1 %; HGB 10.6 gm/dL (11.4-16.0); Lymphocytes # (A) 1.4 k/uL (1.0-4.8); Lymphocytes % (A) 17 %; MCH 28.8 pg (25.0-35.0); MCHC 33.1 g/dL (31.0-37.0); MCV 87.1 fL (80.0-100.0); Mean Platelet Volume 6.8; Monocytes # (A) 0.4 k/uL (0-1.0); Monocytes % (A) 5 %; Neutrophils # (A) 6.2 k/uL (1.3-7.7); Neutrophils % (A) 75 %; Platelet Count 153 k/uL (150-450); RBC 3.68 m/uL (3.80-5.40); RDW 14.5 % (11.5-15.5); WBC 8.3 k/uL (3.8-10.6)
[2018-11-25 07:33] LABS: African American GFR (CKD) >90 (>60 ml/min/1.73 sqM); Anion Gap 8 mmol/L; Blood Urea Nitrogen 10 mg/dL (7-17); Calcium 9.1 mg/dL (8.4-10.2); Carbon Dioxide 33 mmol/L (22-30); Chloride 95 mmol/L (98-107); Glucose 135 mg/dL (74-99); Potassium 3.9 mmol/L (3.5-5.1); Sodium 136 mmol/L (137-145)
[2018-11-25] MEDS: ENOXAPARIN 40 MG/0.4 ML SYRINGE SQ SCH (09:14)
[2018-11-25] MEDS: metFORMIN 500 MG TAB PO SCH ×3 (09:14→21:52)
[2018-11-25] MEDS: LISINOPRIL 2.5 MG TAB PO SCH (09:14)
[2018-11-25] MEDS: FUROSEMIDE 40 MG TAB PO SCH (09:15)
[2018-11-25] MEDS: DIVALPROEX 500 MG TABLET.DR PO SCH (09:15)
--- NOTE | 2018-11-25 10:39 | P.DS ---
Providers Expected date of discharge: 11/25/18 Attending physician: Jalen Katz Consults: 11/23/18 10:31 Consult Physician Routine Consulting Provider: Chad Jean Consult Reason/Comments: Medical management Do you want consulting provider notified?: Yes Primary care physician: Chad Jean Hospital Course: 78 year old female who is status post repair of incisional hernia. Patient is doing well postoperatively without any immediate complications. Patient is tolerating diet. Denies nausea or vomiting. Vital signs have been stable. She is stable for discharge home today per Dr. Katz. Please see EMR for further hospital course details. Discharge Diagnosis: 1. Status post repair of incisional hernia Nurse practitioner note has been reviewed by physician. Signing provider agrees with the documented findings, assessment, and plan of care. Patient Condition at Discharge: Stable Plan - Discharge Summary Discharge Rx Participant: Yes New Discharge Prescriptions: New Hydrocodone/Acetaminophen [[place] 5-325] 1 tab PO Q4HR PRN 3 Days #18 tab PRN Reason: Pain No Action Atorvastatin [Lipitor] 80 mg PO HS Cholecalciferol [Vitamin D3 (25 Mcg = 1000 Iu)] 5,000 unit PO DAILY Aspirin 81 mg PO HS Omeprazole [PriLOSEC] 20 mg PO DAILY Levothyroxine Sodium [Synthroid] 137 mcg PO QAM Meclizine [Antivert] 25 mg PO TID PRN PRN Reason: Vertigo Furosemide [Lasix] 40 mg PO DAILY Potassium 99 mg PO DAILY [place]-3 Fatty Acids [[place]-3] 1,000 mg PO BID Alendronate Sodium [Fosamax] 70 mg PO CORDOVA Clopidogrel [Plavix] 75 mg PO DAILY metFORMIN HCL [Glucophage] 500 mg PO TID Lisinopril [Zestril] 2.5 mg PO QAM Divalproex [Depakote] 500 mg PO DAILY Dicyclomine [Bentyl] 10 mg PO BID rOPINIRole HCL 0.5 mg PO HS Vitamin B Complex 1 each PO DAILY [place] 1 tsp PO DAILY Chloride Silver 1 tbsp PO BID Discharge Medication List Aspirin 81 mg PO HS 03/28/14 [History] Atorvastatin [Lipitor] 80 mg PO HS 03/28/14 [History] Cholecalciferol [Vitamin D3 (25 Mcg = 1000 Iu)] 5,000 unit PO DAILY 03/28/14 [History] Omeprazole [PriLOSEC] 20 mg PO DAILY 03/28/14 [History] Alendronate Sodium [Fosamax] 70 mg PO CORDOVA 03/19/17 [History] Furosemide [Lasix] 40 mg PO DAILY 03/19/17 [History] Levothyroxine Sodium [Synthroid] 137 mcg PO QAM 03/19/17 [History] Meclizine [Antivert] 25 mg PO TID PRN 03/19/17 [History] [place]-3 Fatty Acids [[place]-3] 1,000 mg PO BID 03/19/17 [History] Potassium 99 mg PO DAILY 03/19/17 [History] Chloride Silver 1 tbsp PO BID 11/11/18 [History] Clopidogrel [Plavix] 75 mg PO DAILY 11/11/18 [History] Dicyclomine [Bentyl] 10 mg PO BID 11/11/18 [History] Divalproex [Depakote] 500 mg PO DAILY 11/11/18 [History] Lisinopril [Zestril] 2.5 mg PO QAM 11/11/18 [History] [place] 1 tsp PO DAILY 11/11/18 [History] Vitamin B Complex 1 each PO DAILY 11/11/18 [History] metFORMIN HCL [Glucophage] 500 mg PO TID 11/11/18 [History] rOPINIRole HCL 0.5 mg PO HS 11/11/18 [History] Hydrocodone/Acetaminophen [[place] 5-325] 1 tab PO Q4HR PRN 3 Days #18 tab 11/23/18 [Rx] Follow up Appointment(s)/Referral(s): Chad Jean DO [Primary Care Provider] - 1 Week Jalen Katz MD [STAFF PHYSICIAN] - 12/01/18 1:50 pm Patient Instructions/Handouts: Pain Management (ED), Incisional Hernia (DC), Incisional Hernia (GEN) Activity/Diet/Wound Care/Special Instructions: No driving while taking [place] No lifting over 10 pounds You may shower. No soaking or tub baths Very light activity until you are reevaluated at your follow up appointment with your surgeon
[2018-11-25] MEDS: KETOROLAC 30 MG/ML 1 ML VIAL IVP PRN (17:22)
[2018-11-25] MEDS: DOCUSATE 100 MG CAP PO SCH ×2 (19:44→21:53)
[2018-11-25] MEDS: METOCLOPRAMIDE 5 MG/ML 2 ML VIAL IVP SCH (20:19)
[2018-11-25] MEDS: SODIUM CHLORIDE 0.9% 1,000 ML IV SCH (20:20)
[2018-11-25] MEDS: ATORVASTATIN 80 MG TAB PO SCH (21:52)
[2018-11-26] MEDS: METOCLOPRAMIDE 5 MG/ML 2 ML VIAL IVP SCH ×2 (00:20→05:34)
[2018-11-26] MEDS: KETOROLAC 30 MG/ML 1 ML VIAL IVP PRN (05:35)
[2018-11-26] MEDS: SODIUM CHLORIDE 0.9% 1,000 ML IV SCH (05:36)
[2018-11-26] MEDS: LEVOTHYROXINE 137 MCG TAB PO SCH (06:23)
[2018-11-26] MEDS: PANTOPRAZOLE 40 MG TABLET PO SCH (06:23)
[2018-11-26] MEDS: metFORMIN 500 MG TAB PO SCH (07:58)
[2018-11-26] MEDS: ENOXAPARIN 40 MG/0.4 ML SYRINGE SQ SCH (07:58)
[2018-11-26] MEDS: FUROSEMIDE 40 MG TAB PO SCH (07:58)
[2018-11-26] MEDS: LISINOPRIL 2.5 MG TAB PO SCH (07:58)
[2018-11-26] MEDS: DOCUSATE 100 MG CAP PO SCH (07:59)
[2018-11-26] MEDS: DIVALPROEX 500 MG TABLET.DR PO SCH (07:59)
[2018-11-26 09:03] VITALS: BP 125/76; PULSE 84; RESP 26; TEMP 97.9
--- NOTE | 2018-11-26 12:08 | P.PN ---
Progress Note - Text Progress Note Date: 11/26/18 Patient discharge held yesterday secondary to episode of vomiting in the afternoon. She was placed on IV reglan. Patient improved this morning. No nausea. No vomiting. Tolerating diet. Having bowel movements. Feels much better than yesterday and is requesting discharge home today. Stable for DC home today.
== END 2018-11-26 15:50 | disposition home or self-care (01) ==
LOC: OR 07:05 → 6PED 10:41 → OR 11-26 15:50
PROVIDERS: ATTEND Surgery
DX: K43.2 Incisional hernia without obstruction or gangrene (principal); I10 Essential (primary) hypertension; E11.9 Type 2 diabetes mellitus without complications; K21.9 Gastro-esophageal reflux disease without esophagitis; E78.5 Hyperlipidemia, unspecified; E03.9 Hypothyroidism, unspecified; M19.90 Unspecified osteoarthritis, unspecified site; G40.909 Epilepsy, unspecified, not intractable, without status epilepticus; M81.0 Age-related osteoporosis without current pathological fracture; G25.81 Restless legs syndrome; G96.9 Disorder of central nervous system, unspecified; Z79.82 Long term (current) use of aspirin; Z79.890 Hormone replacement therapy; Z79.02 Long term (current) use of antithrombotics/antiplatelets; Z79.83 Long term (current) use of bisphosphonates; Z79.899 Other long term (current) drug therapy; Z87.891 Personal history of nicotine dependence; Z90.49 Acquired absence of other specified parts of digestive tract; Z95.5 Presence of coronary angioplasty implant and graft; Z91.041 Radiographic dye allergy status; Z79.84 Long term (current) use of oral hypoglycemic drugs
CPT/HCPCS: 92610; 80048 ×2; 85025 ×2; 49560; 49568; C1781; J2250; J0360; J1200; J1100; J2710; J2765; J2175; J0690; J2405; J2001; J1650 ×3; J3010; J1885 ×3; J1170 ×3; J0330; J2704

== ENCOUNTER 2019-03-22 12:25 | Inpatient (IN) | payer MEDICARE, BC ==
[2019-03-22] MEDS ORDERED: SODIUM CHLORIDE 0.9% 500 ML 500 ML IV STA (13:13)
[2019-03-22] MEDS ORDERED: oxyCODONE-APAP 7.5-325MG 1 EACH TAB PO STA (13:20)
--- NOTE | 2019-03-22 13:20 | ED ---
General Adult HPI - General Chief complaint: Fall Stated complaint: fall, head injury Time Seen by Provider: 03/22/19 12:55 Source: patient, family Mode of arrival: wheelchair Limitations: no limitations - History of Present Illness Initial comments: Dictation was produced using Word[employer]ake dictation software. please excuse any grammatical, word or spelling errors. Chief Complaint: 78-year-old female with past medical history of osteoporosis, diabetes, seizure disorder presents with chest pain, back pain after fall. History of Present Illness: 78-year-old female she presents with the affirmation symptoms. Patient states she had 2 separate incidences where she fell. Patient states that 2 nights ago she was allegedly sleepwalking when she fell. The fall caused her to wake up. Patient states that since then she's been experiencing left-sided chest pain, lower back pain. She denies any injury to the head or neck. Earlier this morning she had a repeat event where she fell again. She states that the fall this morning exacerbated her symptoms. She remains of sharp left-sided chest pain that is severe and sharp. She states it's worse with deep inspiration. No radiation of symptoms. She also has lower back pain especially localized to the coccyx area. She does complain of bilateral hip pain. She states her left hip hurts when flexing the right lower extremity hip. Family is concerned because they have been making adjustments to the furnace and there is some concern of carbon monoxide poisoning. Family also reports that patient appears to be more confused more than usual. The ROS documented in this emergency department record has been reviewed and confirmed by me. Those systems with pertinent positive or negative responses have been documented in the HPI. All other systems are other negative and/or noncontributory. PHYSICAL EXAM: General Impression: Alert and oriented x3, acute distress secondary to pain HEENT: Normocephalic atraumatic, extra-ocular movements intact, pupils equal and reactive to light bilaterally, mucous membranes moist. Cardiovascular: Heart regular rate and rhythm, S1&S2 audible, no murmurs, rubs or gallops Chest: Lungs clear to auscultation bilaterally, tenderness to palpation of the left lateral ribs Abdomen: Bowel sounds present, abdomen soft, non-tender, non-distended, no organomegaly Musculoskeletal: Pulses present and equal in all extremities, no peripheral edema, tenderness to palpation over the lower back. She does complain of bilateral hip pain with flexing of either hip. No leg length discrepancy. Motor: no focal deficits noted Neurological: CN II-XII grossly intact, no focal motor or sensory deficits noted Skin: Intact with no visualized rashes Psych: Normal affect and mood ED course: 78-year-old feel presents with pain after fall. She has multiple pain complaints. Main complaint appears to be significant left-sided chest pain. Vital signs upon arrival are within acceptable limits. Patient's EKG is concerning for acute changes. Patient denies anyACS-type symptoms. Laboratory evaluation obtained. CBC, coag panel, metabolic panel is grossly unremarkable. Urinalysis is negative except for 1+ ketones. Carbon monoxide level is negative. Computed tomography scan of the head and C-spine is unremarkable for any acute processes. Hip x-ray is atraumatic. CT of the chest abdomen pelvis without contrast shows cortical irregularities noted along the lateral fifth, 6, 7 and eighth ribs. Patient does have exquisite tenderness in this area surgeon for repeat fractures that are nondisplaced. Also some hazy density in the perinephric region which could represent fatty contusion. Patient does not have any pain in the right CVA area. Given the patient has traumatic chest findings. We will admit to Dr. Katz's service with consul tation to primary care physician, anesthesia and pulmonary. Patient also has abnormal EKG findings with history concerning for syncope. Cardiology is consulted. Patient family is understandable and agreeable with disposition. EKG interpretation: Ventricular rate 73, normal sinus rhythm,. 1:30, QRS 80, QTc 431. No MT prolongation, no QTC prolongation. No ST changes. There are diffuse T-wave inversions in the lateral precordial leads and biphasic T-wave in V2 and V3.. Signs appear to be no compared to EKG from 11/13/2018 - Related Data Home Medications Medication Instructions Recorded Confirmed Aspirin 81 mg PO HS 03/28/14 11/23/18 Atorvastatin [Lipitor] 80 mg PO HS 03/28/14 11/23/18 Cholecalciferol [Vitamin D3 (25 5,000 unit PO DAILY 03/28/14 11/23/18 Mcg = 1000 Iu)] Omeprazole [PriLOSEC] 20 mg PO DAILY 03/28/14 11/23/18 Alendronate Sodium [Fosamax] 70 mg PO CORDOVA 03/19/17 11/23/18 Furosemide [Lasix] 40 mg PO DAILY 03/19/17 11/23/18 Levothyroxine Sodium [Synthroid] 137 mcg PO QAM 03/19/17 11/23/18 Meclizine [Antivert] 25 mg PO TID PRN 03/19/17 11/23/18 [place]-3 Fatty Acids [[place]-3] 1,000 mg PO BID 03/19/17 11/23/18 Potassium 99 mg PO DAILY 03/19/17 11/23/18 Chloride Silver 1 tbsp PO BID 11/11/18 11/23/18 Clopidogrel [Plavix] 75 mg PO DAILY 11/11/18 11/23/18 Dicyclomine [Bentyl] 10 mg PO BID 11/11/18 11/23/18 Divalproex [Depakote] 500 mg PO DAILY 11/11/18 11/23/18 Lisinopril [Zestril] 2.5 mg PO QAM 11/11/18 11/23/18 [place] 1 tsp PO DAILY 11/11/18 11/23/18 Vitamin B Complex 1 each PO DAILY 11/11/18 11/23/18 metFORMIN HCL [Glucophage] 500 mg PO TID 11/11/18 11/23/18 rOPINIRole HCL [Requip] 0.5 mg PO HS 11/11/18 11/23/18 Previous Rx's Medication Instructions Recorded Hydrocodone/Acetaminophen [[place] 1 tab PO Q4HR PRN 3 Days #18 tab 11/23/18 5-325] Docusate [Colace] 100 mg PO BID #30 capsule 11/25/18 Allergies Allergy/AdvReac Type Severity Reaction Status Date / Time Iodinated Contrast Media Allergy Rash/Hives Verified 03/22/19 12:48 [Iodinated Contrast Media - IV Dye] Review of Systems ROS Statement: Those systems with pertinent positive or pertinent negative responses have been documented in the HPI. ROS Other: All systems not noted in ROS Statement are negative. 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, VERTIGO History of Any Multi-Drug Resistant Organisms: None Reported Past Surgical History: Heart Catheterization With Stent, Hysterectomy Additional Past Surgical History / Comment(s): 2 STENTS Past Anesthesia/Blood Transfusion Reactions: No Reported Reaction Date of Last Stent Placement:: 04/07/2013 Past Psychological History: Anxiety Smoking Status: Former smoker Past Alcohol Use History: None Reported Past Drug Use History: None Reported - Past Family History Mother Family Medical History: No Reported History General Exam Limitations: no limitations Course Vital Signs 03/22/19 12:45 Temperature 98.8 F Pulse Rate 78 Respiratory 16 Rate Blood Pressure 157/83 O2 Sat by Pulse 98 Oximetry Medical Decision Making - Lab Data Result diagrams: 03/22/19 13:44 03/22/19 13:44 Lab Results 03/22/19 03/22/19 03/22/19 Range/Units 13:44 13:44 13:44 WBC 8.6 (3.8-10.6) k/uL RBC 4.20 (3.80-5.40) m/uL Hgb 12.1 (11.4-16.0) gm/dL Hct 37.6 (34.0-46.0) % MCV 89.7 (80.0-100.0) fL MCH 28.9 (25.0-35.0) pg MCHC 32.2 (31.0-37.0) g/dL RDW 14.6 (11.5-15.5) % Plt Count 209 (150-450) k/uL Neutrophils % 78 % Lymphocytes % 15 % Monocytes % 4 % Eosinophils % 1 % Basophils % 0 % Neutrophils # 6.7 (1.3-7.7) k/uL Lymphocytes # 1.3 (1.0-4.8) k/uL Monocytes # 0.4 (0-1.0) k/uL Eosinophils # 0.1 (0-0.7) k/uL Basophils # 0.0 (0-0.2) k/uL PT (9.0-12.0) sec INR (<1.2) APTT (22.0-30.0) sec Carbon Monoxide, Quant (<10.0) % Sodium 143 (137-145) mmol/L Potassium 4.3 (3.5-5.1) mmol/L Chloride 105 (98-107) mmol/L Carbon Dioxide 24 (22-30) mmol/L Anion Gap 14 mmol/L BUN 24 H (7-17) mg/dL Creatinine 1.27 H (0.52-1.04) mg/dL Est GFR (CKD-EPI)AfAm 47 (>60 ml/min/1.73 sqM) Est GFR (CKD-EPI)NonAf 41 (>60 ml/min/1.73 sqM) Glucose 120 H (74-99) mg/dL Calcium 10.1 (8.4-10.2) mg/dL Total Bilirubin 1.2 (0.2-1.3) mg/dL AST 26 (14-36) U/L ALT 16 (4-34) U/L Alkaline Phosphatase 73 (38-126) U/L Total Protein 8.1 (6.3-8.2) g/dL Albumin 4.7 (3.5-5.0) g/dL Urine Color Yellow Urine Appearance Clear (Clear) Urine pH 5.0 (5.0-8.0) Ur Specific [place] 1.014 (1.001-1.035) Urine Protein Negative (Negative) Urine Glucose (UA) Negative (Negative) Urine Ketones 1+ H (Negative) Urine Blood Negative (Negative) Urine Nitrite Negative (Negative) Urine Bilirubin Negative (Negative) Urine Urobilinogen <2.0 (<2.0) mg/dL Ur Leukocyte Esterase Negative (Negative) 03/22/19 03/22/19 Range/Units 13:44 14:02 WBC (3.8-10.6) k/uL RBC (3.80-5.40) m/uL Hgb (11.4-16.0) gm/dL Hct (34.0-46.0) % MCV (80.0-100.0) fL MCH (25.0-35.0) pg MCHC (31.0-37.0) g/dL RDW (11.5-15.5) % Plt Count (150-450) k/uL Neutrophils % % Lymphocytes % % Monocytes % % Eosinophils % % Basophils % % Neutrophils # (1.3-7.7) k/uL Lymphocytes # (1.0-4.8) k/uL Monocytes # (0-1.0) k/uL Eosinophils # (0-0.7) k/uL Basophils # (0-0.2) k/uL PT 11.0 (9.0-12.0) sec INR 1.0 (<1.2) APTT 22.6 (22.0-30.0) sec Carbon Monoxide, Quant 2.4 (<10.0) % Sodium (137-145) mmol/L Potassium (3.5-5.1) mmol/L Chloride (98-107) mmol/L Carbon Dioxide (22-30) mmol/L Anion Gap mmol/L BUN (7-17) mg/dL Creatinine (0.52-1.04) mg/dL Est GFR (CKD-EPI)AfAm (>60 ml/min/1.73 sqM) Est GFR (CKD-EPI)NonAf (>60 ml/min/1.73 sqM) Glucose (74-99) mg/dL Calcium (8.4-10.2) mg/dL Total Bilirubin (0.2-1.3) mg/dL AST (14-36) U/L ALT (4-34) U/L Alkaline Phosphatase (38-126) U/L Total Protein (6.3-8.2) g/dL Albumin (3.5-5.0) g/dL Urine Color Urine Appearance (Clear) Urine pH (5.0-8.0) Ur Specific [place] (1.001-1.035) Urine Protein (Negative) Urine Glucose (UA) (Negative) Urine Ketones (Negative) Urine Blood (Negative) Urine Nitrite (Negative) Urine Bilirubin (Negative) Urine Urobilinogen (<2.0) mg/dL Ur Leukocyte Esterase (Negative) Disposition Clinical Impression: Syncope, Fall, Rib fractures Disposition: ADMITTED IP TO THIS [facility] Referrals: Chad Jean DO [Primary Care Provider] - 1-2 days Decision Time: 15:17
[2019-03-22 14:06] LABS: Basophils % (A) 0 %; Eosinophils # (A) 0.1 k/uL (0-0.7); Eosinophils % (A) 1 %; HCT 37.6 % (34.0-46.0); HGB 12.1 gm/dL (11.4-16.0); Lymphocytes # (A) 1.3 k/uL (1.0-4.8); Lymphocytes % (A) 15 %; MCH 28.9 pg (25.0-35.0); MCHC 32.2 g/dL (31.0-37.0); MCV 89.7 fL (80.0-100.0); Mean Platelet Volume 7.2; Monocytes # (A) 0.4 k/uL (0-1.0); Monocytes % (A) 4 %; Neutrophils # (A) 6.7 k/uL (1.3-7.7); Neutrophils % (A) 78 %; Platelet Count 209 k/uL (150-450); RDW 14.6 % (11.5-15.5); WBC 8.6 k/uL (3.8-10.6)
[2019-03-22 14:13] LABS: Appearance,Urine Clear (Clear); Bilirubin,Urine Negative (Negative); Blood,Urine Negative (Negative); Color,Urine Yellow; Glucose,Urine (UA) Negative (Negative); Ketones,Urine 1+ (Negative); Leukocyte Esterase,Urine Negative (Negative); Nitrite,Urine Negative (Negative); Protein,Urine Negative (Negative); Specific Gravity,Urine 1.014 (1.001-1.035); Urobilinogen,Urine <2.0 mg/dL (<2.0)
[2019-03-22 14:23] LABS: Albumin 4.7 g/dL (3.5-5.0); Calcium 10.1 mg/dL (8.4-10.2); Potassium 4.3 mmol/L (3.5-5.1); Total Bilirubin 1.2 mg/dL (0.2-1.3); Total Protein 8.1 g/dL (6.3-8.2)
--- NOTE | 2019-03-22 14:30 | XR ---
EXAMINATION TYPE: XR Hip Bilateral Complete DATE OF EXAM: 03/22/2019 COMPARISON: NONE HISTORY: Pain TECHNIQUE: 2 views submitted FINDINGS: There is no evidence of erosive change or acute fracture. Bilateral concentric arthropathy of the hip. Degenerative change lower lumbar spine. Hypertrophic spu rring along the greater trochanter IMPRESSION: 1. No evidence of acute fracture or dislocation.
--- NOTE | 2019-03-22 14:31 | CT ---
EXAMINATION TYPE: CT brain bay wo con DATE OF EXAM: 03/22/2019 COMPARISON: None HISTORY: 78-year-old female Neck pain post fall. CT DLP: 1387.1 mGycm Automated exposure control for dose reduction was used. Technique: Examination of the head was done in axial plane without intravenous contrast. Coronal and sagittal reconstructions performed. CT of the cervical spine was obtained in axial plane without intravenous injection of contrast mater ial. Coronal and sagittal reformatted images were obtained from the axial views for evaluation of f ractures, spinal alignment and canal. FINDINGS: Head: There is no evidence of acute intracranial hemorrhage, acute ischemic changes, mass, mass-effect, or extra-axial fluid collection. There is no effacement of cerebral sulci or basal subarachnoid cister ns. There is no hydrocephalus. There is no midline shift. Tovar-white matter distinction is preserv ed. Scattered mild mucosal thickening throughout the paranasal sinuses. Mastoid air cells are pneumatized . Orbits and globes appear intact. No calvarial fracture. Moderate patchy white matter hypodensities in both cerebral hemispheres. Atherosclerotic calcificatio ns in the bilateral carotid siphons. Cervical spine: No craniocervical junction abnormality, predental space widening, or prevertebral soft tissue swellin g. Degenerative changes at the C1 dens articulation. Reversal of the normal cervical lordosis. Grade 1 anterolisthesis at C4-C5 secondary to facet and unc overtebral joint arthropathy. Moderate to advanced disc/endplate degenerative change from C5-C7 levels. Disc/osteophyte complex at C5-C6 mildly narrows the spinal canal. No acute fracture is identified. Mild bilateral neuroforaminal stenoses at C5-C6. Sagittal and coronal reformatted images confirm above findings. COMBINED IMPRESSION: 1. No acute intracranial abnormality seen. Moderate changes of chronic small vessel ischemic disease. Mild chronic paranasal sinus disease. 2. No acute fracture of the cervical spine. Degenerative grade 1 anterolisthesis at C4-C5. Moderate m ultilevel spondylotic change.
--- NOTE | 2019-03-22 14:52 | CT ---
EXAMINATION TYPE: CT ChestAbdPelvis wo con DATE OF EXAM: 03/22/2019 COMPARISON: Abdomen and pelvis 10/28/2018 HISTORY: 78-year-old female rib, low back, and bilateral hip pain post fall TECHNIQUE: Contiguous axial scanning of the chest, abdomen, and pelvis without IV contrast. Coronal a nd sagittal reconstructions performed. CT DLP: 1054.8 mGycm Automated exposure control for dose reduction was used. FINDINGS: CHEST: The heart is borderline enlarged. Three-vessel coronary artery calcifications are present, dense with in the LAD. Noncontrast images show no evidence for acute intramural hematoma within the aorta. No aneurysm. Conv entional arch vessel branching anatomy. No mediastinal hematoma or thoracic lymphadenopathy. Extensive breathing motion artifacts limits evaluation of the lungs. A 4 mm pulmonary nodule in each lower lung appears unchanged from 10/28/2018 suggesting a benign etiology. Additional one-year follow- up can be performed. Triangular 5 mm nodule posterior left upper lobe likely intrafissural lymph node , axial image 35. No consolidation, pneumothorax, or pleural effusion. ABDOMEN: There is some nodularity at the GE junction, axial image 50. Neoplasm is a possibility and can be cor related with direct visualization. Lack of IV contrast limits assessment of the solid abdominal viscera, lymph nodes, and vascular struc tures. Noncontrast appearance of the liver, adrenal glands, kidneys, spleen, and atrophic pancreas show no g ross abnormal body. There is some hazy density in the superior right perinephric region, axial image 57 and 58, possible motion artifact. No dilated small bowel, free fluid, or free air. There seems to be chronic thickening and scarring along the anterior umbilical and infraumbilical abd ominal wall. Underlying small 1.6 cm fluid collection difficult to exclude, axial image 100. No mesenteric or retroperitoneal lymphadenopathy. Left-sided colonic diverticulosis more extensive within the sigmoid colon. No pericolonic inflammator y change. PELVIS: Bladder nondistended. Uterus surgically absent. Neither ovary is visualized. No abnormal fluid collec tion in the pelvis or pelvic lymphadenopathy. BONES: Mild to moderate degenerative change at the hips. Degenerative change right SI joint. Degenerative di sc disease L4-L5 and L5-S1. Bridging anterior endplate spondylosis mid to lower thoracic spine compat ible with dish. Fatty matrix hemangioma within the L1 vertebral body and inferior end plate Schmorl's node of T9 vertebral body. Some mild thickening/callus suggested along the lateral left fifth rib suggesting old fracture deform ity. Cortical irregularity and cortical angulation present along the left anterolateral and lateral fifth, sixth, seventh, and eighth ribs. No displaced rib fracture. IMPRESSION: 1. CORTICAL IRREGULARITY ALONG THE LEFT ANTEROLATERAL AND LATERAL FIFTH, SIXTH, SEVENTH, AND EIGHTH R IBS. CORRELATE FOR POINT TENDERNESS HERE FOR SUSPECTED NONDISPLACED RIB FRACTURES. 2. SOME HAZY DENSITY IN THE SUPERIOR RIGHT PERINEPHRIC REGION COULD REPRESENT MOTION ARTIFACT OR FATT Y CONTUSION. 3. SOME NODULARITY AT THE GE JUNCTION COULD REPRESENT REDUNDANT MUCOSA FROM A TINY HIATAL HERNIA. DIR ECT VISUALIZATION RECOMMENDED TO EXCLUDE UNDERLYING DISTAL ESOPHAGEAL NEOPLASM. 4. INTERVAL ABDOMINAL WALL HERNIA REPAIR WITH PROMINENT SCARRING AND POSSIBLE 1.6 CM FLUID COLLECTION ALONG THE INFRAUMBILICAL SURGICAL SITE. 5. NO DECREASE SENSITIVITY DUE TO NONCONTRAST EXAM. 6. CAD, LEFT-SIDED COLONIC DIVERTICULOSIS, GREATEST IN THE SIGMOID COLON.
[2019-03-22 14:59] LABS: Partial Thromboplastin Time 22.6 sec (22.0-30.0)
[2019-03-22] MEDS ORDERED: NALOXONE 0.4 MG/ML 1 ML VIAL IV PRN (15:11)
--- NOTE | 2019-03-22 16:27 | P.CNPUL ---
History of Present Illness Consult date: 03/22/19 Reason for consult: chest pain History of present illness: 78-year-old female patient, where the fall on 2 separate occasions. She allegedly was having some balance issues when she fell. No reported hypoglycemia. No reported hypotension. No seizure activity or syncope. . She started having left-sided chest pain and lower back pain. No head injury. No neck injury. This morning, the patient had another episode of fall and she came into the emergency department. She is having pain across the left side of the chest is worse with breathing. The back pain is localized to her coccyx. She also complains of some bilateral hip pain. The workup for now included a CAT scan of the head and the cervical spine and the CAT scan showed no acute intracranial abnormalities and there was some moderate changes of small vessel ischemia and mild chronic paranasal sinus disease and there is no evidence of acute fracture involving the cervical spine. As for the CAT scan of the chest abdomen and pelvis which showed evidence of cortical irregularities along the left anterolateral and lateral fifth and seventh and eighth rib suspicious for nondisplaced rib fractures. In addition to some hazy density in the superior right perinephric region could represent motion artifact versus fatty contusion. There was also some moderate. The GE junction representing redundant mucosa, tiny hiatal hernia and distal esophageal cancer is felt to be less likely. There is also interval abdominal wall hernia repair with prominent scarring and possibly a 1.6 cm fluid collection in the infraumbilical surgical site. There is evidence of left-sided diverticulosis mainly in the sigmoid colon. The patient was a causative 8.6. Creatinine is 1.2. UA is negative. She is in the hospital for pain control and she is on [place] one tablet every 4 hours on a when necessary basis. Her comorbid conditions include diabetes mellitus, hypertension, hyperlipidemia, hypothyroidism, and dementia and history of seizure disorder. She also has history of GE reflux and restless leg syndrome. XR of the hip showed no evidence of any Fracture Review of Systems Constitutional: Reports weakness Eyes: denies as per HPI, denies blurred vision, denies bulging eye, denies decreased vision, denies diplopia, denies discharge, denies dry eye, denies irritation, denies itching, denies pain, denies photophobia, denies loss of peripheral vision, denies loss of vision, denies tunnel vision/blind spots Ears: deny: decreased hearing, ear discharge, earache, tinnitus Ears, nose, mouth and throat: Denies headache, Denies sore throat Breasts: absent: as per HPI, change in shape, gynecomastia, masses, nipple discharge, pain, skin changes, swelling Cardiovascular: Reports chest pain Respiratory: Reports as per HPI Gastrointestinal: Reports as per HPI, Reports heartburn Genitourinary: Reports as per HPI Menstruation: Reports as per HPI Musculoskeletal: Reports frequent falls Musculoskeletal: absent: ankle pain, ankle stiffness, ankle swelling Integumentary: Denies pruritus, Denies rash Neurological: Reports seizures, Reports weakness Psychiatric: Reports as per HPI, Reports memory loss Endocrine: Reports as per HPI Hematologic/Lymphatic: Reports as per HPI Allergic/Immunologic: Reports as per HPI Past Medical History Past Medical History: Coronary Artery Disease (CAD), Dementia, Diabetes Mellitus, GERD/Reflux, Hyperlipidemia, Hypertension, Neurologic Disorder, Osteoarthritis (OA), Seizure Disorder, Skin Disorder, Thyroid Disorder Additional Past Medical History / Comment(s): RESTLESS LEGS urinary incontinence, osteoporosis, 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, 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, VERTIGO History of Any Multi-Drug Resistant Organisms: None Reported Past Surgical History: Heart Catheterization With Stent, Hysterectomy Additional Past Surgical History / Comment(s): 2 STENTS Past Anesthesia/Blood Transfusion Reactions: No Reported Reaction Date of Last Stent Placement:: 04/07/2013 Past Psychological History: Anxiety Smoking Status: Former smoker Past Alcohol Use History: None Reported Past Drug Use History: None Reported - Past Family History Mother Family Medical History: No Reported History Medications and Allergies Home Medications Medication Instructions Recorded Confirmed Type Aspirin 81 mg PO HS 03/28/14 11/23/18 History Atorvastatin [Lipitor] 80 mg PO HS 03/28/14 11/23/18 History Cholecalciferol [Vitamin D3 (25 5,000 unit PO DAILY 03/28/14 11/23/18 History Mcg = 1000 Iu)] Omeprazole [PriLOSEC] 20 mg PO DAILY 03/28/14 11/23/18 History Alendronate Sodium [Fosamax] 70 mg PO CORDOVA 03/19/17 11/23/18 History Furosemide [Lasix] 40 mg PO DAILY 03/19/17 11/23/18 History Levothyroxine Sodium [Synthroid] 137 mcg PO QAM 03/19/17 11/23/18 History Meclizine [Antivert] 25 mg PO TID PRN 03/19/17 11/23/18 History [place]-3 Fatty Acids [[place]-3] 1,000 mg PO BID 03/19/17 11/23/18 History Potassium 99 mg PO DAILY 03/19/17 11/23/18 History Chloride Silver 1 tbsp PO BID 11/11/18 11/23/18 History Clopidogrel [Plavix] 75 mg PO DAILY 11/11/18 11/23/18 History Dicyclomine [Bentyl] 10 mg PO BID 11/11/18 11/23/18 History Divalproex [Depakote] 500 mg PO DAILY 11/11/18 11/23/18 History Lisinopril [Zestril] 2.5 mg PO QAM 11/11/18 11/23/18 History [place] 1 tsp PO DAILY 11/11/18 11/23/18 History Vitamin B Complex 1 each PO DAILY 11/11/18 11/23/18 History metFORMIN HCL [Glucophage] 500 mg PO TID 11/11/18 11/23/18 History rOPINIRole HCL [Requip] 0.5 mg PO HS 11/11/18 11/23/18 History Hydrocodone/Acetaminophen [[place] 1 tab PO Q4HR PRN 3 Days #18 tab 11/23/18 Rx 5-325] Docusate [Colace] 100 mg PO BID #30 capsule 11/25/18 Rx Allergies Allergy/AdvReac Type Severity Reaction Status Date / Time Iodinated Contrast Media Allergy Rash/Hives Verified 03/22/19 12:48 [Iodinated Contrast Media - IV Dye] Physical Exam Vitals: Vital Signs Temp Pulse Resp BP Pulse Ox 03/22/19 12:45 98.8 F 78 16 157/83 98 Intake and Output 03/22/19 03/22/19 03/22/19 06:59 14:59 22:59 Other: Weight 93.894 kg The patient appeared well nourished and normally developed. Vital signs as documented. Head exam is unremarkable. No scleral icterus or corneal arcus noted. Neck is without jugular venous distension, thyromegaly, or carotid bruits. Carotid upstrokes are brisk bilaterally. Lungs are clear to auscultation and percussion. Cardiac exam reveals the PMI to be normally sized and situated. Rhythm is regular. First and second heart sounds normal. No murmurs, rubs or gallops. Abdominal exam reveals normal bowel sounds, no masses, no organomegaly and no aortic enlargement. Extremities are nonedematous and both femoral and pedal pulses are normal.Examination of the skin revealed no evidence of significant rashes, suspicious appearing nevi or other concerning lesions. Results - Laboratory Findings CBC and BMP: 03/22/19 13:44 03/22/19 13:44 PT/INR, D-dimer PT 11.0 sec (9.0-12.0) 03/22/19 14:02 INR 1.0 (<1.2) 03/22/19 14:02 Abnormal lab findings: Abnormal Labs 03/22/19 03/22/19 13:44 13:44 BUN 24 H Creatinine 1.27 H Glucose 120 H Urine Ketones 1+ H - Diagnostic Findings Chest x-ray: image reviewed CT scan - chest: image reviewed Assessment and Plan Plan: 1 frequent falls, exact cause is not clear. Could be related to vertigo and loss in balance. The patient has underlying dementia. CAT scan of the brain is negative. She will need further neuro workup and she has seen Dr. Ordonez an outpatient basis. 2 nondisplaced rib fractures on the left involving the anterolateral and lateral fifth and sixth and seventh and eighth ribs 3 dementia 4 history of seizures 5 abnormalities in the distal esophagus as evident on the CAT scan without evidence of malignancy based on a previous EGD. The patient has history of es ophagitis 6 diabetes mellitus without poor hypoglycemia 7 hypertension 8 hypothyroidism 9 RLS 10 CAD , previous insertion of coronary stents and currently she is free of any angina 11 history of vertigo Plan No major thoracic injury. Pain control. Neuro workup regarding the falls. We'll admit the patient to the hospital. Provide the patient incentive spirometer. We'll see the patient on as-needed basis should there be any pulmonary issues in the future.
[2019-03-23] MEDS: HYDROcodone/APAP 5-325MG 1 EACH TAB PO PRN ×3 (03:55→23:10)
[2019-03-23 05:59] LABS: Glucose,Whole Blood 123 mg/dL (75-99)
[2019-03-23] MEDS: SODIUM CHLORIDE 0.9% 1,000 ML IV SCH ×2 (08:25→12:19)
[2019-03-23] MEDS ORDERED: DICYCLOMINE 10 MG CAP PO PRN (10:09)
[2019-03-23 11:50] LABS: Glucose,Whole Blood 116 mg/dL (75-99)
[2019-03-23] MEDS: metFORMIN 500 MG TAB PO SCH ×2 (12:18→17:25)
--- NOTE | 2019-03-23 12:49 | P.CRDCN ---
History of Present Illness Consult date: 03/23/19 Requesting physician: Jalen Katz Consult reason: sycope Chief complaint: fall, possible syncope History of present illness: this is a pleasant 78-year-old femalewho follows with Dr. Meza in the office. She has known history of coronary artery disease with prior LAD stenting, hypertension, hyperlipidemia, family history of premature coronary artery disease.most recent cardiac cath was performed in March 2017 which revealed calcified right and left coronary systems, patent stent in the proximal and mid LAD.patient presented to the hospital on this occasion after experiencin g a fall with possible syncope. According to the patient she does not remember falling at all, but woke up flat on her back, she did incur rib fractures during the fall and is quite tender today. Her family members do think that she passed out because she doesn't recall falling or having any symptoms prior to this experience. Patient does state that she's been quite lightheaded and dizzy recently. She also states that she has not been taking any of her medications, she felt that she was overmedicated and stopped most of her medications recently.CAT scan of the head and neck and spine was performed which did not reveal any acute intracranial abnormality. Moderate change chronic ISCHEMIC DISEASE. MILD CHRONIC PARANASAL SINUS DISEASE. NO ACUTE FRACTURE OF THE CERVICAL SPINE.hip x-ray was performed which did not reveal evidence of acute fracture or dislocation.a chest/abdomen/pelvis was performed revealed nondisplaced rib fractures. EKG shows normal sinus rhythm with anterior lateral ST-T wave changes. 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, VERTIGO History of Any Multi-Drug Resistant Organisms: None Reported Past Surgical History: Cholecystectomy, Heart Catheterization With Stent, Hernia Repair, Hysterectomy Additional Past Surgical History / Comment(s): , BROKEN RIBS IN THE PAST 2 S TENTS MAYBE 3-4 YRS AGO, Past Anesthesia/Blood Transfusion Reactions: No Reported Reaction Date of Last Stent Placement:: 04/07/2013 Past Psychological History: Anxiety Additional Psychological History / Comment(s): STATES R/T FAMILY ISSUES Smoking Status: Former smoker Past Alcohol Use History: None Reported Additional Past Alcohol Use History / Comment(s): STATES QUIT 1973, SMOKED 2- 3PPD FOR APPROX 10 YRS Past Drug Use History: None Reported - Past Family History Mother Family Medical History: No Reported History Additional Family Medical History / Comment(s): DEMENTIA Father Family Medical History: No Reported History Additional Family Medical History / Comment(s): OLD AGE Medications and Allergies Home Medications Medication Instructions Recorded Confirmed Type Aspirin 81 mg PO HS 03/28/14 03/22/19 History Atorvastatin [Lipitor] 80 mg PO HS 03/28/14 03/22/19 History Cholecalciferol [Vitamin D3 (25 5,000 unit PO DAILY 03/28/14 03/22/19 History Mcg = 1000 Iu)] Omeprazole [PriLOSEC] 20 mg PO DAILY 03/28/14 03/22/19 History Alendronate Sodium [Fosamax] 70 mg PO CORDOVA 03/19/17 03/22/19 History Levothyroxine Sodium [Synthroid] 137 mcg PO QAM 03/19/17 03/22/19 History Meclizine [Antivert] 25 mg PO TID 03/19/17 03/22/19 History [place]-3 Fatty Acids [[place]-3] 1,000 mg PO BID 03/19/17 03/22/19 History Potassium 99 mg PO DAILY 03/19/17 03/22/19 History Chloride Silver 1 tbsp PO BID 11/11/18 03/22/19 History Dicyclomine [Bentyl] 10 mg PO Q8H PRN 11/11/18 03/22/19 History Lisinopril [Zestril] 2.5 mg PO QAM 11/11/18 03/22/19 History [place] 1 tsp PO DAILY 11/11/18 03/22/19 History Vitamin B Complex 1 cap PO DAILY 11/11/18 03/22/19 History metFORMIN HCL [Glucophage] 500 mg PO TID 11/11/18 03/22/19 History rOPINIRole HCL [Requip] 0.5 mg PO HS 11/11/18 03/22/19 History Divalproex [Depakote] 250 mg PO BID 03/22/19 03/22/19 History Furosemide [Lasix] 40 mg PO DAILY 03/22/19 03/22/19 History Losartan Potassium 100 mg PO DAILY 03/22/19 03/22/19 History Allergies Allergy/AdvReac Type Severity Reaction Status Date / Time Iodinated Contrast Media Allergy Rash/Hives Verified 03/22/19 16:36 [Iodinated Contrast Media - IV Dye] Physical Exam Vitals: Vital Signs Temp Pulse Pulse Resp BP BP Pulse Ox 03/23/19 08:00 72 18 130/67 98 03/23/19 04:00 98.0 F 76 18 180/96 93 L 03/23/19 00:00 99.6 F 81 18 134/69 93 L 03/22/19 23:31 98.8 F 79 18 159/75 96 03/22/19 20:50 98.8 F 79 18 159/75 96 03/22/19 19:54 88 18 147/81 98 03/22/19 12:45 98.8 F 78 16 157/83 98 Intake and Output 03/22/19 03/23/19 03/23/19 22:59 06:59 14:59 Intake Total 125 Balance 125 Intake: Oral 125 Other: Voiding Method Toilet Bedside Commode Weight 93.894 kg 83.9 kg PHYSICAL EXAMINATION: GENERAL:8-year-old female in no acute distress at the time of my exam HEENT: Head is atraumatic, normocephalic. Pupils equal, round. Sclera anicter ic. Conjunctiva are clear. Mucous membranes of the mouth are moist. Neck is supple. There is no elevated jugular venous pressure.no carotid bruit is heard. HEART EXAMINATION:heart S1 S2 1 systolic murmur is heard CHEST EXAMINATION:[ Lungs are clear to auscultation and precussion. Positive chest wall \\rib tenderness is noted on palpation and with deep breathing.] ABDOMEN: [ Soft, nontender. Bowel sounds are heard. No organomegaly noted]. EXTREMITIES:[ 2+ peripheral pulses with no evidence of peripheral edema and no calf tenderness noted]. NEUROLOGIC [patient is awake, alert and oriented X3.] . Results 03/22/19 13:44 03/22/19 13:44 Cardiac Enzymes 03/22/19 Range/Units 13:44 AST 26 (14-36) U/L Coagulation 03/22/19 Range/Units 14:02 PT 11.0 (9.0-12.0) sec APTT 22.6 (22.0-30.0) sec CBC 03/22/19 Range/Units 13:44 WBC 8.6 (3.8-10.6) k/uL RBC 4.20 (3.80-5.40) m/uL Hgb 12.1 (11.4-16.0) gm/dL Hct 37.6 (34.0-46.0) % Plt Count 209 (150-450) k/uL Comprehensive Metabolic Panel 03/22/19 Range/Units 13:44 Sodium 143 (137-145) mmol/L Potassium 4.3 (3.5-5.1) mmol/L Chloride 105 (98-107) mmol/L Carbon Dioxide 24 (22-30) mmol/L BUN 24 H (7-17) mg/dL Creatinine 1.27 H (0.52-1.04) mg/dL Glucose 120 H (74-99) mg/dL Calcium 10.1 (8.4-10.2) mg/dL AST 26 (14-36) U/L ALT 16 (4-34) U/L Alkaline Phosphatase 73 (38-126) U/L Total Protein 8.1 (6.3-8.2) g/dL Albumin 4.7 (3.5-5.0) g/dL Current Medications Generic Name Dose Route Start Last Admin Trade Name Freq PRN Reason Stop Dose Admin Hydrocodone Bitart/Acetaminophen 1 each 03/22/19 15:11 03/23/19 03:55 [place] 5-325 PO 1 each Q4HR PRN Administration Pain Scale 2 to 5 Aspirin 81 mg 03/23/19 21:00 Aspirin PO HS JACQUELIN Atorvastatin Calcium 80 mg 03/23/19 21:00 Lipitor PO HS JACQUELIN Dicyclomine HCl 10 mg 03/23/19 10:09 Bentyl PO Q8H PRN STOMACH CRAMPS Divalproex Sodium 250 mg 03/23/19 21:00 Depakote PO BID JACQUELIN Docusate Sodium 100 mg 03/23/19 21:00 Colace PO BID JACQUELIN Furosemide 40 mg 03/24/19 09:00 Lasix PO DAILY JACQUELIN Sodium Chloride 1,000 mls @ 20 mls/hr 03/22/19 15:15 03/23/19 12:19 Saline 0.9% IV Not Given .Q24H JACQUELIN Levothyroxine Sodium 137 mcg 03/24/19 06:30 Synthroid PO QAM@0630 JACQUELIN Lisinopril 2.5 mg 03/24/19 09:00 Zestril PO QAM JACQUELIN Losartan Potassium 100 mg 03/24/19 09:00 Cozaar PO DAILY JACQUELIN Meclizine HCl 25 mg 03/23/19 16:00 Antivert PO TID JACQUELIN Metformin HCl 500 mg 03/23/19 13:30 03/23/19 12:18 Glucophage PO 500 mg PC-TID JACQUELIN Administration Naloxone HCl 0.2 mg 03/22/19 15:11 Narcan IV Q2M PRN Opioid Reversal Ropinirole HCl 0.5 mg 03/23/19 21:00 Requip PO HS JACQUELIN Intake and Output 03/22/19 03/23/19 03/23/19 22:59 06:59 14:59 Intake Total 125 Balance 125 Intake: Oral 125 Other: Voiding Method Toilet Bedside Commode Weight 93.894 kg 83.9 kg 03/22/19 13:44 03/22/19 13:44 EKG Interpretations (text) EKG shows a normal sinus rhythm with anterior lateral ST-T wave changes. Assessment and Plan Plan: assessment and plan #1 frequent falls, this episode appears that it may have been a syncopal episode. Rule out cardiac causes #2 nondisplaced rib fractures involving the anterior lateral and lateral fifth and sixth seventh and eighth ribs. #3 known history of coronary artery disease with prior LAD stenting #4 hypertension #5 diabetes #6 hyperlipidemia #7 mildly dementia Plan We will obtain an echocardiogram with Doppler study. Continue to monitor for any tachycardia or bradycardia arrhythmias. Obtain orthostatic blood pressure and heart rate every shift. DNP note has been reviewed, I agree with a documented findings and plan of care. Patient was seen and examined.
--- NOTE | 2019-03-23 14:00 | P.GSHP ---
History of Present Illness H&P Date: 03/23/19 Chief Complaint: fall CHIEF COMPLAINT: fall HISTORY OF PRESENT ILLNESS: 78 year old female who presented to the ER after sustaining a couple of falls at home. Patient reports falling two days ago and then another fall yesterday due her couch. She reports history of dizziness and lightheadedness. Denies nausea or vomiting. Tolerating oral intake at home. She reports living with a friend who works during the day and is unable to help her. PAST MEDICAL HISTORY: See list. PAST SURGICAL HISTORY: See list. SOCIAL HISTORY: No illicit drug use. REVIEW OF SYSTEMS: CONSTITUTIONAL: Denies fever or chills. Reports recent falls. HEENT: Denies blurred vision, vision changes, or eye pain. Denies hemoptysis. Reports dizziness and lightheadedness at home. CARDIOVASCULAR: Denies chest pain or pressure. RESPIRATORY: No shortness of breath. GASTROINTESTINAL: Refer to HPI for pertinent findings HEMATOLOGIC: Denies bleeding disorders. GENITOURINARY: Denies any blood in urine. SKIN: Denies pruitis. Denies rash. PHYSICAL EXAM: VITAL SIGNS: Reviewed. GENERAL: Well-developed in no acute distress. HEENT: No sclera icterus. Extraocular movements grossly intact. Moist buccal mucosa. Head is atraumatic, normocephalic. ABDOMEN: Soft. Nondistended. Nontender. Midline incision noted. NEUROLOGIC: Alert and oriented. Cranial nerves II through XII grossly intact. LABORATORY DATA: W BC 8.6. Hemoglobin 12.1. Platelet count 209. Carbon monoxide 2.4. Sodium 1 43. Potassium 4.3. BUN 24. Creatinine 1.27. IMAGIN. CT brain and cervical spine: No evidence of acute intracranial hemorrhage, acute ischemic changes, or mass. No midline shift. No acute fracture of the cervical spine. 2. Hip x-ray: No evidence of fracture. 3. CT chest abdomen and pelvis: Cortical irregularity along the left anterior lateral and lateral fifth sick seventh and eighth ribs. Suspected nondisplaced rib fractures. Some hazy density in the superior right perinephritic region could represent motion artifact or fatty contusion. Some nodularity at the GE junction could represent redundant mucosa from a tiny hiatal hernia. Interval abdominal wall hernia repair with prominent scarring and possible 1.6 cm fluid collection along the infraumbilical surgical site. Left-sided colonic diverticulosis ASSESSMENT: 1. Frequent falls, possibly secondary to history of vertigo 2. Nondisplaced rib fractures of left fifth sixth seventh and eighth ribs 3. History of open repair of incisional hernia with mesh and lysis of adhesion s, November 2018 4. Left-sided colonic diverticulosis PLAN: -Diet as tolerated -Pulmonary following. Encourage use of incentive spirometer -Consult PT/OT -Dr. Jean for medical management -Consult social work for possible ECF at discharge Nurse practitioner note has been reviewed by physician. Signing provider agrees with the documented findings, assessment, and plan of care. 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, VERTIGO History of Any Multi-Drug Resistant Organisms: None Reported Past Surgical History: Cholecystectomy, Heart Catheterization With Stent, Hernia Repair, Hysterectomy Additional Past Surgical History / Comment(s): , BROKEN RIBS IN THE PAST 2 STENTS MAYBE 3-4 YRS AGO, Past Anesthesia/Blood Transfusion Reactions: No Reported Reaction Date of Last Stent Placement:: 04/07/2013 Past Psychological History: Anxiety Additional Psychological History / Comment(s): STATES R/T FAMILY ISSUES Smoking Status: Former smoker Past Alcohol Use History: None Reported Additional Past Alcohol Use History / Comment(s): STATES QUIT 1973, SMOKED 2- 3PPD FOR APPROX 10 YRS Past Drug Use History: None Reported - Past Family History Mother Family Medical History: No Reported History Additional Family Medical History / Comment(s): DEMENTIA Father Family Medical History: No Reported History Additional Family Medical History / Comment(s): OLD AGE Medications and Allergies Home Medications Medication Instructions Recorded Confirmed Type Aspirin 81 mg PO HS 03/28/14 03/22/19 History Atorvastatin [Lipitor] 80 mg PO HS 03/28/14 03/22/19 History Cholecalciferol [Vitamin D3 (25 5,000 unit PO DAILY 03/28/14 03/22/19 History Mcg = 1000 Iu)] Omeprazole [PriLOSEC] 20 mg PO DAILY 03/28/14 03/22/19 History Alendronate Sodium [Fosamax] 70 mg PO CORDOVA 03/19/17 03/22/19 History Levothyroxine Sodium [Synthroid] 137 mcg PO QAM 03/19/17 03/22/19 History Meclizine [Antivert] 25 mg PO TID 03/19/17 03/22/19 History [place]-3 Fatty Acids [[place]-3] 1,000 mg PO BID 03/19/17 03/22/19 History Potassium 99 mg PO DAILY 03/19/17 03/22/19 History Chloride Silver 1 tbsp PO BID 11/11/18 03/22/19 History Dicyclomine [Bentyl] 10 mg PO Q8H PRN 11/11/18 03/22/19 History Lisinopril [Zestril] 2.5 mg PO QAM 11/11/18 03/22/19 History [place] 1 tsp PO DAILY 11/11/18 03/22/19 History Vitamin B Complex 1 cap PO DAILY 11/11/18 03/22/19 History metFORMIN HCL [Glucophage] 500 mg PO TID 11/11/18 03/22/19 History rOPINIRole HCL [Requip] 0.5 mg PO HS 11/11/18 03/22/19 History Divalproex [Depakote] 250 mg PO BID 03/22/19 03/22/19 History Furosemide [Lasix] 40 mg PO DAILY 03/22/19 03/22/19 History Losartan Potassium 100 mg PO DAILY 03/22/19 03/22/19 History Allergies Allergy/AdvReac Type Severity Reaction Status Date / Time Iodinated Contrast Media Allergy Rash/Hives Verified 03/22/19 16:36 [Iodinated Contrast Media - IV Dye] Surgical - Exam Vital Signs Temp Pulse Resp BP Pulse Ox 98.8 F 78 16 157/83 98 03/22/19 12:45 03/22/19 12:45 03/22/19 12:45 03/22/19 12:45 03/22/19 12:45 Results - Labs 03/22/19 13:44 03/22/19 13:44 Abnormal Lab Results - Last 24 Hours (Table) 03/22/19 03/22/19 03/23/19 Range/Units 13:44 13:44 05:57 BUN 24 H (7-17) mg/dL Creatinine 1.27 H (0.52-1.04) mg/dL Glucose 120 H (74-99) mg/dL POC Glucose (mg/dL) 123 H (75-99) mg/dL Urine Ketones 1+ H (Negative) 03/23/19 Range/Units 11:48 BUN (7-17) mg/dL Creatinine (0.52-1.04) mg/dL Glucose (74-99) mg/dL POC Glucose (mg/dL) 116 H (75-99) mg/dL Urine Ketones (Negative) Diabetes panel 03/22/19 Range/Units 13:44 Sodium 143 (137-145) mmol/L Potassium 4.3 (3.5-5.1) mmol/L Chloride 105 (98-107) mmol/L Carbon Dioxide 24 (22-30) mmol/L BUN 24 H (7-17) mg/dL Creatinine 1.27 H (0.52-1.04) mg/dL Glucose 120 H (74-99) mg/dL Calcium 10.1 (8.4-10.2) mg/dL AST 26 (14-36) U/L ALT 16 (4-34) U/L Alkaline Phosphatase 73 (38-126) U/L Total Protein 8.1 (6.3-8.2) g/dL Albumin 4.7 (3.5-5.0) g/dL Calcium panel 03/22/19 Range/Units 13:44 Calcium 10.1 (8.4-10.2) mg/dL Albumin 4.7 (3.5-5.0) g/dL Pituitary panel 03/22/19 Range/Units 13:44 Sodium 143 (137-145) mmol/L Potassium 4.3 (3.5-5.1) mmol/L Chloride 105 (98-107) mmol/L Carbon Dioxide 24 (22-30) mmol/L BUN 24 H (7-17) mg/dL Creatinine 1.27 H (0.52-1.04) mg/dL Glucose 120 H (74-99) mg/dL Calcium 10.1 (8.4-10.2) mg/dL Adrenal panel 03/22/19 Range/Units 13:44 Sodium 143 (137-145) mmol/L Potassium 4.3 (3.5-5.1) mmol/L Chloride 105 (98-107) mmol/L Carbon Dioxide 24 (22-30) mmol/L BUN 24 H (7-17) mg/dL Creatinine 1.27 H (0.52-1.04) mg/dL Glucose 120 H (74-99) mg/dL Calcium 10.1 (8.4-10.2) mg/dL Total Bilirubin 1.2 (0.2-1.3) mg/dL AST 26 (14-36) U/L ALT 16 (4-34) U/L Alkaline Phosphatase 73 (38-126) U/L Total Protein 8.1 (6.3-8.2) g/dL Albumin 4.7 (3.5-5.0) g/dL
--- NOTE | 2019-03-23 15:11 | P.PAINCN ---
History of Present Illness - Reason for Consult Consult date: 03/23/19 - History of Present Illness This is 78 years old female, who fell at home, after she passed out, and she reported that she started complaining of severe left-sided chest wall pain and also she had severe low back pain, patient had computed tomography scan of the head and neck and it did not reveal any intracranial abnormalities and the chronic sinus disease, and also shown that she had left side ribs fractures, she continued to have severe low back pain with occasional numbness and tingling sensation in the lower extremities, she is not able to ambulate secondary to the intensity of the pain, the pain is constant and increases with any position changes, she is currently on [place] 5/325 every 4 hours when necessary, which is helping somewhat, she is able to ambulate on her own using a walker and with help. 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" @ti mes, VERTIGO History of Any Multi-Drug Resistant Organisms: None Reported Past Surgical History: Cholecystectomy, Heart Catheterization With Stent, Hernia Repair, Hysterectomy Additional Past Surgical History / Comment(s): , BROKEN RIBS IN THE PAST 2 STENTS MAYBE 3-4 YRS AGO, Past Anesthesia/Blood Transfusion Reactions: No Reported Reaction Date of Last Stent Placement:: 04/07/2013 Past Psychological History: Anxiety Additional Psychological History / Comment(s): STATES R/T FAMILY ISSUES Smoking Status: Former smoker Past Alcohol Use History: None Reported Additional Past Alcohol Use History / Comment(s): STATES QUIT 1973, SMOKED 2- 3PPD FOR APPROX 10 YRS Past Drug Use History: None Reported - Past Family History Mother Family Medical History: No Reported History Additional Family Medical History / Comment(s): DEMENTIA Father Family Medical History: No Reported History Additional Family Medical History / Comment(s): OLD AGE Medications and Allergies Home Medications Medication Instructions Recorded Confirmed Type Aspirin 81 mg PO HS 03/28/14 03/22/19 History Atorvastatin [Lipitor] 80 mg PO HS 03/28/14 03/22/19 History Cholecalciferol [Vitamin D3 (25 5,000 unit PO DAILY 03/28/14 03/22/19 History Mcg = 1000 Iu)] Omeprazole [PriLOSEC] 20 mg PO DAILY 03/28/14 03/22/19 History Alendronate Sodium [Fosamax] 70 mg PO CORDOVA 03/19/17 03/22/19 History Levothyroxine Sodium [Synthroid] 137 mcg PO QAM 03/19/17 03/22/19 History Meclizine [Antivert] 25 mg PO TID 03/19/17 03/22/19 History [place]-3 Fatty Acids [[place]-3] 1,000 mg PO BID 03/19/17 03/22/19 History Potassium 99 mg PO DAILY 03/19/17 03/22/19 History Chloride Silver 1 tbsp PO BID 11/11/18 03/22/19 History Dicyclomine [Bentyl] 10 mg PO Q8H PRN 11/11/18 03/22/19 History Lisinopril [Zestril] 2.5 mg PO QAM 11/11/18 03/22/19 History [place] 1 tsp PO DAILY 11/11/18 03/22/19 History Vitamin B Complex 1 cap PO DAILY 11/11/18 03/22/19 History metFORMIN HCL [Glucophage] 500 mg PO TID 11/11/18 03/22/19 History rOPINIRole HCL [Requip] 0.5 mg PO HS 11/11/18 03/22/19 History Divalproex [Depakote] 250 mg PO BID 03/22/19 03/22/19 History Furosemide [Lasix] 40 mg PO DAILY 03/22/19 03/22/19 History Losartan Potassium 100 mg PO DAILY 03/22/19 03/22/19 History Allergies Allergy/AdvReac Type Severity Reaction Status Date / Time Iodinated Contrast Media Allergy Rash/Hives Verified 03/22/19 16:36 [Iodinated Contrast Media - IV Dye] Physical Exam Vitals: Vital Signs Temp Pulse Pulse Resp BP BP Pulse Ox 03/23/19 12:00 65 19 156/67 95 03/23/19 08:00 72 18 130/67 98 03/23/19 04:00 98.0 F 76 18 180/96 93 L 03/23/19 00:00 99.6 F 81 18 134/69 93 L 03/22/19 23:31 98.8 F 79 18 159/75 96 03/22/19 20:50 98.8 F 79 18 159/75 96 03/22/19 19:54 88 18 147/81 98 Intake and Output 03/23/19 03/23/19 03/23/19 06:59 14:59 22:59 Intake Total 125 Balance 125 Intake: Oral 125 Other: Voiding Method Toilet Bedside Commode Weight 83.9 kg Physical Examinations : -Constitutiona : Cooperative , not in acute distress . -HEENT : nech : supple , no Lymphadenopathy , normal thyroid size . : eyes : no ptosis , no icterus, no photophobia . : ENT : normal of hearing , normal oropharynx , no Thrush . - Respiratory : Clear to auscultation , no wheezing , no Rhonchi . Left side tenderness over the mid side of the chest wall - Cardiovascula : regular rate and rhythem , S1 , S2 , no S3 , no S4. - Gastrointestina : abdomen soft no tenderness , bowel sounds , no organomegally . - Genitourinary : Defferred . - neurologic : Cranial nerve II to XII intact , no focal neurological deffecit . -psychatric : alert , oriented X 3 , appropriate affect , intact judgment and insight . -Lymphatic : no Lymphadenopathy . - musculoskeltal : Lumber spine moter stegnth lower extremities ,thigh and legs 5/5 Right side , 4/5 Left side deep tendon reflexes : normal Knee Jerk , normal ankle Jerk lumber facet Loading Test =positive Right , positive Left Range of motion of the lumbar spine Flexion 30 degrees, extension 10 degrees strait leg raising test = positive at degree Fabere test= positive Right , and positive LT . Sever tenderness over the Sacroiliac joint on the Right , and Left sides Gaenslen test= positive right ,and positive left . Seated flexion test= positive right ,and positive Left . Results CBC & Chem 7: 03/22/19 13:44 03/22/19 13:44 Labs: Abnormal Lab Results - Last 24 Hours (Table) 03/23/19 03/23/19 Range/Units 05:57 11:48 POC Glucose (mg/dL) 123 H 116 H (75-99) mg/dL Assessment and Plan Plan: Assessment and plan=1-acute on chronic low back pain mostly secondary to lumbar degenerative disc disease and lumbar spondylosis with lumbar facet arthropathy, we don't have any diagnostic study of the lumbar MRI, I will order a computed to mography scan of the lumbar spine, Recommend continue current medication [place] 5/325 every 4 hours when necessary Time with Patient: Greater than 30 PQRS Measure Charge Sheet PQRS Narrative: Smoking Status Former smoker Blood Pressure [Left Arm 156/67 Supine] Blood Pressure 147/81 Pain Intensity [Chest] 0 Pain Intensity 8 Pain Scale Used Numeric (1 - 10) Scale Used Numeric (1 - 10) Home Medications: Ambulatory Orders Aspirin 81 mg PO HS 03/28/14 Atorvastatin [Lipitor] 80 mg PO HS 03/28/14 Cholecalciferol [Vitamin D3 (25 Mcg = 1000 Iu)] 5,000 unit PO DAILY 03/28/14 Omeprazole [PriLOSEC] 20 mg PO DAILY 03/28/14 Alendronate Sodium [Fosamax] 70 mg PO CORDOVA 03/19/17 Levothyroxine Sodium [Synthroid] 137 mcg PO QAM 03/19/17 Meclizine [Antivert] 25 mg PO TID 03/19/17 [place]-3 Fatty Acids [[place]-3] 1,000 mg PO BID 03/19/17 Potassium 99 mg PO DAILY 03/19/17 Chloride Silver 1 tbsp PO BID 11/11/18 Dicyclomine [Bentyl] 10 mg PO Q8H PRN 11/11/18 Lisinopril [Zestril] 2.5 mg PO QAM 11/11/18 [place] 1 tsp PO DAILY 11/11/18 Vitamin B Complex 1 cap PO DAILY 11/11/18 metFORMIN HCL [Glucophage] 500 mg PO TID 11/11/18 rOPINIRole HCL [Requip] 0.5 mg PO HS 11/11/18 Divalproex [Depakote] 250 mg PO BID 03/22/19 Furosemide [Lasix] 40 mg PO DAILY 03/22/19 Losartan Potassium 100 mg PO DAILY 03/22/19
[2019-03-23] MEDS: MECLIZINE 25 MG TAB PO SCH ×2 (17:25→21:00)
[2019-03-23 17:30] LABS: Glucose,Whole Blood 114 mg/dL (75-99)
[2019-03-23 20:11] LABS: Glucose,Whole Blood 120 mg/dL (75-99)
[2019-03-23] MEDS: DIVALPROEX 250 MG TABLET.DR PO SCH (21:00)
[2019-03-23] MEDS: ASPIRIN 81 MG PO SCH (21:00)
[2019-03-23] MEDS: DOCUSATE 100 MG CAP PO SCH (21:00)
[2019-03-23] MEDS: ATORVASTATIN 80 MG TAB PO SCH (21:00)
[2019-03-24] MEDS: HYDROcodone/APAP 5-325MG 1 EACH TAB PO PRN ×2 (05:17→22:28)
[2019-03-24 06:09] LABS: Glucose,Whole Blood 132 mg/dL (75-99)
[2019-03-24] MEDS: LEVOTHYROXINE 137 MCG TAB PO SCH (06:31)
[2019-03-24] MEDS: metFORMIN 500 MG TAB PO SCH ×3 (08:45→18:27)
[2019-03-24] MEDS: MECLIZINE 25 MG TAB PO SCH ×3 (08:45→19:58)
[2019-03-24] MEDS: FUROSEMIDE 40 MG TAB PO SCH (08:45)
[2019-03-24] MEDS: LISINOPRIL 2.5 MG TAB PO SCH (08:45)
[2019-03-24] MEDS: LOSARTAN 50 MG TAB PO SCH (08:45)
[2019-03-24] MEDS: DOCUSATE 100 MG CAP PO SCH ×2 (08:45→19:53)
[2019-03-24] MEDS: DIVALPROEX 250 MG TABLET.DR PO SCH ×2 (08:48→19:59)
--- NOTE | 2019-03-24 11:06 | P.PN ---
Subjective Progress Note Date: 03/24/19 CHIEF COMPLAINT: fall HISTORY OF PRESENT ILLNESS: Patient examined at the bedside. She reports her pain has improved today compared to yesterday. Patient able to ambulate to the bathroom with assistance. Tolerating diet. Denies nausea or vomiting. PHYSICAL EXAM: VITAL SIGNS: Reviewed. GENERAL: Well-developed in no acute distress. HEENT: No sclera icterus. Extraocular movements grossly intact. Moist buccal mucosa. Head is atraumatic, normocephalic. ABDOMEN: Soft. Nondistended. Nontender. Midline incision noted. NEUROLOGIC: Alert and oriented. Cranial nerves II through XII grossly intact. ASSESSMENT: 1. Frequent falls, possibly secondary to history of vertigo 2. Nondisplaced rib fractures of left fifth sixth seventh and eighth ribs 3. History of open repair of incisional hernia with mesh and lysis of adhesions, November 2018 4. Left-sided colonic diverticulosis PLAN: -Diet as tolerated -Pulmonary following. Encourage use of incentive spirometer -PT/OT -Possible ECF at discharge. Social work following -No surgical intervention recommended from a general surgery standpoint -Discharge per medicine when stable Nurse practitioner note has been reviewed by physician. Signing provider agrees with the documented findings, assessment, and plan of care. Objective - Vital Signs Vital signs: Vital Signs Temp 98.6 F 03/24/19 04:00 Pulse 66 03/24/19 08:00 Resp 19 03/24/19 08:00 BP 143/55 03/24/19 08:00 Pulse Ox 100 03/24/19 08:00 Intake & Output 03/23/19 03/24/19 03/24/19 18:59 06:59 18:59 Intake Total 365 Balance 365 Weight 93.8 kg Intake: Oral 365 Other: Voiding Method Toilet Bedside Commode # Voids 1 - Labs CBC & Chem 7: 03/22/19 13:44 03/22/19 13:44 Labs: Abnormal Lab Results - Last 24 Hours (Table) 03/23/19 03/23/19 03/23/19 Range/Units 11:48 17:24 20:09 POC Glucose (mg/dL) 116 H 114 H 120 H (75-99) mg/dL 03/24/19 Range/Units 06:05 POC Glucose (mg/dL) 132 H (75-99) mg/dL
[2019-03-24 12:41] LABS: Glucose,Whole Blood 96 mg/dL (75-99)
--- NOTE | 2019-03-24 12:43 | ECHOF ---
Referral Reason:syncope MEASUREMENTS -------- HEIGHT: 162.6 cm WEIGHT: 83.5 kg BP: 130/67 RVIDd: 3.6 cm (< 3.3) IVSd: 0.8 cm (0.6 - 1.1) LVIDd: 4.9 cm (3.9 - 5.3) LVPWd: 1.4 cm (0.6 - 1.1) IVSs: 1.2 cm LVIDs: 3.4 cm LVPWs: 1.6 cm MV EXCURSION: 19.371 mm (> 18.000) MV EF SLOPE: 78 mm/s (70 - 150) EPSS: 1.9 cm MV E Truong: 0.42 m/s MV DecT: 277 ms MV A Truong: 0.74 m/s MV E/A Ratio: 0.57 RAP: 5.00 mmHg RVSP: 12.04 mmHg FINDINGS -------- Sinus rhythm. This was a techncally difficult study with suboptimal views, , Lumason utilized for enhancement of im ages. The left ventricular size is normal. There is borderline concentric left ventricular hypertrophy. Overall left ventricular systolic function is low-normal with, an EF between 50 - 55 %. The right ventricle is mildly enlarged. The left atrial size is normal. The right atrial size is normal. 5.0mg OF Lumason UTLIZED: 2 OR MORE WALL SEGMENTS NOT VISUALIZED. There is mild aortic valve sclerosis. There is no evidence of aortic regurgitation. Mild mitral annular calcification present. Mild mitral regurgitation is present. Mild tricuspid regurgitation present. Right ventricular systolic pressure is normal at < 35 mmHg. There is no evidence of pulmonary hypertension. The pulmonic valve was not well visualized. The aortic root size is normal. Echo free space represents a pericardial fat pad. CONCLUSIONS -------- 1. Sinus rhythm. 2. This was a techncally difficult study with suboptimal views, , Lumason utilized for enhancement of images. 3. The left ventricular size is normal. 4. There is borderline concentric left ventricular hypertrophy. 5. The right ventricle is mildly enlarged. 6. The left atrial size is normal. 7. The right atrial size is normal. 8. 5.0mg OF Lumason UTLIZED: 2 OR MORE WALL SEGMENTS NOT VISUALIZED. 9. There is mild aortic valve sclerosis. 10. Mild mitral annular calcification present. 11. Mild mitral regurgitation is present. 12. Mild tricuspid regurgitation present. 13. Right ventricular systolic pressure is normal at < 35 mmHg. 14. There is no evidence of pulmonary hypertension. 15. The pulmonic valve was not well visualized. 16. The aortic root size is normal. 17. Echo free space represents a pericardial fat pad. MILITARY PAY CLERK: Salima De La Cruz RDCS
--- NOTE | 2019-03-24 15:31 | P.PN ---
Subjective Progress Note Date: 03/24/19 this is a pleasant 78-year-old femalewho follows with Dr. Meza in the office. She has known history of coronary artery disease with prior LAD stenting, hypertension, hyperlipidemia, family history of premature coronary artery disease.most recent cardiac cath was performed in March 2017 which revealed calcified right and left coronary systems, patent stent in the proximal and mid LAD.patient presented to the hospital on this occasion after experiencing a fall with possible syncope. According to the patient she does not remember falling at all, but woke up flat on her back, she did incur rib fractures during the fall and is quite tender today. Her family members do think that she passed out because she doesn't recall falling or having any symptoms prior to this experience. Patient does state that she's been quite lightheaded and dizzy recently. She also states that she has not been taking any of her medications, she felt that she was overmedicated and stopped most of her medications recently.CAT scan of the head and neck and spine was performed which did not reveal any acute intracranial abnormality. Moderate change chronic ISCHEMIC DISEASE. MILD CHRONIC PARANASAL SINUS DISEASE. NO ACUTE FRACTURE OF THE CERVICAL SPINE.hip x-ray was performed which did not reveal evid ence of acute fracture or dislocation.a chest/abdomen/pelvis was performed revealed nondisplaced rib fractures. EKG shows normal sinus rhythm with anterior lateral ST-T wave changes. 03/24/2019 Patient seen and examined this morning, no further episodes of dizziness, no arrhythmias have been noted on the monitor and no evidence of any orthostasis. Blood pressure 142/50 with a heart rate in the 60s, 100% on room air. Echocardiogram with Doppler study revealed a normal left ventricular systolic function. Objective - Vital Signs Vital signs: Vital Signs Temp 98.4 F 03/24/19 12:00 Pulse 59 L 03/24/19 12:00 Resp 18 03/24/19 12:00 BP 162/74 03/24/19 12:00 Pulse Ox 95 03/24/19 12:00 Intake & Output 03/23/19 03/24/19 03/24/19 18:59 06:59 18:59 Intake Total 365 Balance 365 Weight 93.8 kg Intake: Oral 365 Other: Voiding Method Toilet Bedside Commode # Voids 1 - Exam PHYSICAL EXAMINATION: GENERAL:8-year-old female in no acute distress at the time of my exam HEENT: Head is atraumatic, normocephalic. Pupils equal, round. Sclera anicteric. Conjunctiva are clear. Mucous membranes of the mouth are moist. Neck is supple. There is no elevated jugular venous pressure.no carotid bruit is heard. HEART EXAMINATION:heart S1 S2 1 systolic murmur is heard CHEST EXAMINATION:[ Lungs are clear to auscultation and precussion. Positive chest wall \rib tenderness is noted on palpation and with deep breathing.] ABDOMEN: [ Soft, nontender. Bowel sounds are heard. No organomegaly noted]. EXTREMITIES:[ 2+ peripheral pulses with no evidence of peripheral edema and no calf tenderness noted]. NEUROLOGIC [patient is awake, alert and oriented X3.] . - Labs CBC & Chem 7: 03/22/19 13:44 03/22/19 13:44 Labs: Abnormal Lab Results - Last 24 Hours (Table) 03/23/19 03/23/19 03/24/19 Range/Units 17:24 20:09 06:05 POC Glucose (mg/dL) 114 H 120 H 132 H (75-99) mg/dL Assessment and Plan Plan: assessment and plan #1 frequent falls, this episode appears that it may have been a syncopal episode. Rule out cardiac causes #2 nondisplaced rib fractures involving the anterior lateral and lateral fifth and sixth seventh and eighth ribs. #3 known history of coronary artery disease with prior LAD stenting #4 hypertension #5 diabetes #6 hyperlipidemia #7 mildly dementia Plan Echocardiogram with Doppler study revealed a normal left ventricular systolic function. From our perspective patient may be be discharged home we'll recommend a 30 day event monitor on discharge. Follow-up appointment in the office post discharge. DNP note has been reviewed, I agree with a documented findings and plan of care. Patient was seen and examined.
[2019-03-24 17:45] LABS: Glucose,Whole Blood 112 mg/dL (75-99)
[2019-03-24] MEDS: SODIUM CHLORIDE 0.9% 1,000 ML IV SCH (18:26)
[2019-03-24] MEDS: ASPIRIN 81 MG PO SCH (19:59)
[2019-03-24] MEDS: ATORVASTATIN 80 MG TAB PO SCH (19:59)
[2019-03-24 20:12] LABS: Glucose,Whole Blood 129 mg/dL (75-99)
[2019-03-25] MEDS: HYDROcodone/APAP 5-325MG 1 EACH TAB PO PRN ×2 (02:07→09:36)
[2019-03-25 06:25] LABS: Glucose,Whole Blood 134 mg/dL (75-99)
[2019-03-25] MEDS: LEVOTHYROXINE 137 MCG TAB PO SCH (06:58)
[2019-03-25] MEDS: MECLIZINE 25 MG TAB PO SCH (09:35)
[2019-03-25] MEDS: LISINOPRIL 2.5 MG TAB PO SCH (09:35)
[2019-03-25] MEDS: FUROSEMIDE 40 MG TAB PO SCH (09:35)
[2019-03-25] MEDS: LOSARTAN 50 MG TAB PO SCH (09:35)
[2019-03-25] MEDS: DOCUSATE 100 MG CAP PO SCH ×2 (09:36→09:40)
[2019-03-25] MEDS: metFORMIN 500 MG TAB PO SCH (09:36)
[2019-03-25] MEDS: DIVALPROEX 250 MG TABLET.DR PO SCH (09:36)
[2019-03-25 09:48] VITALS: TEMP 98.4
--- NOTE | 2019-03-25 09:54 | P.DS ---
Providers Date of admission: 03/22/19 15:12 Expected date of discharge: 03/25/19 Attending physician: Chad Jean Consults: 03/22/19 15:10 Consult Physician Routine Consulting Provider: Chad Jean Consult Reason/Comments: medicine consult Do you want consulting provider notified?: Yes 03/22/19 15:11 Consult Physician Routine Consulting Provider: Tahir Gupta Consult Reason/Comments: rib fractures Do you want consulting provider notified?: Yes Consult Physician Routine Consulting Provider: Edd Mejia Consult Reason/Comments: abnormal ekg, syncope Do you want consulting provider notified?: Yes 03/23/19 15:11 Consult Physician Routine Consulting Provider: Jalen Katz Consult Reason/Comments: trauma Do you want consulting provider notified?: Already Contacted Primary care physician: Chad Jean [facility] Course: Final Diagnoses nondisplaced rib fractures on the left involving the anterolateral and lateral fifth and sixth and seventh and eighth ribs, status post fall. frequent falls, etiology unclear .patient reports she had stopped taking her meds, possibly r/t vertigo in a patient with underlying dementia dementia- type unknown history of seizures abnormalities in the distal esophagus as evident on the CAT scan without evidence of malignancy based on a previous EGD. The patient has history of esophagitis diabetes mellitus hypertension hypothyroidism RLS CAD , previous insertion of coronary stents and currently she is free of any angina history of vertigo This is a 73-year-old female admitted with multiple rib fracture status post fall, who had quit taking her medications, with a history of dementia. Evaluated by surgery,cardiology, pulmonary, pain management services. Patient follows closely with Dr. Ordonez outpatient neurology.CAT scan of the brain is negative. She will need further neuro workup and she has seen Dr. Ordonez an outpatient basis. Patient has been CLeared by Consults for discharge. Patient is being discharged to subacute rehab in a stable condition with guarded prognosis. EXAM: GENERAL: Alert and oriented 3, no acute distress. HEENT: No sclera icterus. Extraocular movements grossly intact. Moist buccal mucosa. Head is atraumatic, normocephalic. LUNGS:CTA ABDOMEN: Soft. Nondistended. Nontender. Positive bowel sounds NEUROLOGIC: Alert and oriented. Cranial nerves II through XII grossly intact. No focal deficits. The impression and plan of care has been dictated as directed. : I performed a history and examination of this patient, discussed the same with the dictator. I agree with the dictator's note ,documented as a scribe. Any additional findings or plans will be noted. Patient Condition at Discharge: Stable Plan - Discharge Summary Discharge Rx Participant: No New Discharge Prescriptions: New HYDROcodone/APAP 5-325MG [[place] 5-325] 1 each PO Q4HR PRN #18 tab PRN Reason: Pain Scale 2 to 5 INSULIN LISPRO (HumaLOG) [humaLOG] 0 unit SQ ACHS #1 vial Continue Atorvastatin [Lipitor] 80 mg PO HS Cholecalciferol [Vitamin D3 (25 Mcg = 1000 Iu)] 5,000 unit PO DAILY Aspirin 81 mg PO HS Omeprazole [PriLOSEC] 20 mg PO DAILY Levothyroxine Sodium [Synthroid] 137 mcg PO QAM Meclizine [Antivert] 25 mg PO TID [place]-3 Fatty Acids [[place]-3] 1,000 mg PO BID Alendronate Sodium [Fosamax] 70 mg PO CORDOVA metFORMIN HCL [Glucophage] 500 mg PO TID Lisinopril [Zestril] 2.5 mg PO QAM Dicyclomine [Bentyl] 10 mg PO Q8H PRN PRN Reason: STOMACH CRAMPS rOPINIRole HCL [Requip] 0.5 mg PO HS Vitamin B Complex 1 cap PO DAILY [place] 1 tsp PO DAILY Chloride Silver 1 tbsp PO BID Divalproex [Depakote] 250 mg PO BID Furosemide [Lasix] 40 mg PO DAILY Losartan Potassium 100 mg PO DAILY Discharge Medication List Aspirin 81 mg PO HS 03/28/14 [History] Atorvastatin [Lipitor] 80 mg PO HS 03/28/14 [History] Cholecalciferol [Vitamin D3 (25 Mcg = 1000 Iu)] 5,000 unit PO DAILY 03/28/14 [History] Omeprazole [PriLOSEC] 20 mg PO DAILY 03/28/14 [History] Alendronate Sodium [Fosamax] 70 mg PO CORDOVA 03/19/17 [History] Levothyroxine Sodium [Synthroid] 137 mcg PO QAM 03/19/17 [History] Meclizine [Antivert] 25 mg PO TID 03/19/17 [History] [place]-3 Fatty Acids [[place]-3] 1,000 mg PO BID 03/19/17 [History] Chloride Silver 1 tbsp PO BID 11/11/18 [History] Dicyclomine [Bentyl] 10 mg PO Q8H PRN 11/11/18 [History] Lisinopril [Zestril] 2.5 mg PO QAM 11/11/18 [History] [place] 1 tsp PO DAILY 11/11/18 [History] Vitamin B Complex 1 cap PO DAILY 11/11/18 [History] metFORMIN HCL [Glucophage] 500 mg PO TID 11/11/18 [History] rOPINIRole HCL [Requip] 0.5 mg PO HS 11/11/18 [History] Divalproex [Depakote] 250 mg PO BID 03/22/19 [History] Furosemide [Lasix] 40 mg PO DAILY 03/22/19 [History] Losartan Potassium 100 mg PO DAILY 03/22/19 [History] HYDROcodone/APAP 5-325MG [[place] 5-325] 1 each PO Q4HR PRN #18 tab 03/25/19 [Rx] INSULIN LISPRO (HumaLOG) [humaLOG] 0 unit SQ ACHS #1 vial 03/25/19 [Rx] Follow up Appointment(s)/Referral(s): Chad Jean DO [Primary Care Provider] - 1 Week (After discharge from subacute rehab) [facility] [NON-STAFF] - 04/07/19 12:15 pm (Please follow up with the pain clinic on Fri04/07/19 at 1215 pm. ) Elia Ordonez DO [STAFF PHYSICIAN] - 1 Week Activity/Diet/Wound Care/Special Instructions: [facility] event monitor on discharge Diet: consist. carb cbc, bmp in 3 days IS q 1h WA X 10 Discharge Disposition: TRANSFER TO SNF/ECF
[2019-03-25 12:19] LABS: Glucose,Whole Blood 116 mg/dL (75-99)
[2019-03-25 12:32] VITALS: BP 114/56; PULSE 67; RESP 17
--- NOTE | 2019-03-25 13:44 | P.HPIM ---
History of Present Illness H&P Date: 03/23/19 This a pleasant 78-year-old white female [facility] with multiple falls or last fall sustained fracture and trauma and barrel trauma to her left chest where she is admitted to the trauma service. She did sustain left rib fractures multiple. She is currently in bed with with moderate discomfort due to pain. She admitted to having dizziness and confusion which her daughter and granddaughter says this has been progressive in nature and worsening over the past month as a result of ongoing dementia that was diagnosed by Dr. Ordonez. 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 Denies chills. EYES: Denies blurred vision. Denies vision changes. Denies eye pain. EARS, NOSE, MOUTH, & THROAT: Denies headache. Denies sore throat. Denies ear pain. RESPIRATORY: Denies cough. Denies shortness of breath. Denies sputum production. Denies hemoptysis. CARDIOVASCULAR: Denies chest pain or pressure. Denies palpitations. Denies arrhythmias. GASTROINTESTINAL: Denies abdominal pain. Denies diarrhea. Denies constipation. Denies nausea. Denies vomiting. Denies heartburn. Denies blood in the stool. GENITOURINARY: Positive for urinary frequency. Denies burning. Denies dysuria. Admits to cloudy urine. Denies blood in the urine. MUSCULOSKELETAL: Admits to myalgias. Admits to joint swelling. Admits to decreased range of motion beyond patients baseline. INTEGUMENTARY: Denies pruitis. Denies rash. PSYCHIATRIC: Denies suicidal or homicial ideations. ENDOCRINE: Denies weight change. Denies polydipsia. Denies polyuria. HEMATOLOGIC: Denies bleeding disorders. Neurological. 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, VERTIGO History of Any Multi-Drug Resistant Organisms: None Reported Past Surgical History: Cholecystectomy, Heart Catheterization With Stent, Hernia Repair, Hysterectomy Additional Past Surgical History / Comment(s): , BROKEN RIBS IN THE PAST 2 STENTS MAYBE 3-4 YRS AGO, Past Anesthesia/Blood Transfusion Reactions: No Reported Reaction Date of Last Stent Placement:: 04/07/2013 Past Psychological History: Anxiety Additional Psychological History / Comment(s): STATES R/T FAMILY ISSUES Smoking Status: Former smoker Past Alcohol Use History: None Reported Additional Past Alcohol Use History / Comment(s): STATES QUIT 1973, SMOKED 2- 3PPD FOR APPROX 10 YRS Past Drug Use History: None Reported - Past Family History Mother Family Medical History: No Reported History Additional Family Medical History / Comment(s): DEMENTIA Father Family Medical History: No Reported History Additional Family Medical History / Comment(s): OLD AGE Medications and Allergies Home Medications Medication Instructions Recorded Confirmed Type Aspirin 81 mg PO HS 03/28/14 03/22/19 History Atorvastatin [Lipitor] 80 mg PO HS 03/28/14 03/22/19 History Cholecalciferol [Vitamin D3 (25 5,000 unit PO DAILY 03/28/14 03/22/19 History Mcg = 1000 Iu)] Omeprazole [PriLOSEC] 20 mg PO DAILY 03/28/14 03/22/19 History Alendronate Sodium [Fosamax] 70 mg PO CORDOVA 03/19/17 03/22/19 History Levothyroxine Sodium [Synthroid] 137 mcg PO QAM 03/19/17 03/22/19 History Meclizine [Antivert] 25 mg PO TID 03/19/17 03/22/19 History [place]-3 Fatty Acids [[place]-3] 1,000 mg PO BID 03/19/17 03/22/19 History Chloride Silver 1 tbsp PO BID 11/11/18 03/22/19 History Dicyclomine [Bentyl] 10 mg PO Q8H PRN 11/11/18 03/22/19 History Lisinopril [Zestril] 2.5 mg PO QAM 11/11/18 03/22/19 History [place] 1 tsp PO DAILY 11/11/18 03/22/19 History Vitamin B Complex 1 cap PO DAILY 11/11/18 03/22/19 History metFORMIN HCL [Glucophage] 500 mg PO TID 11/11/18 03/22/19 History rOPINIRole HCL [Requip] 0.5 mg PO HS 11/11/18 03/22/19 History Divalproex [Depakote] 250 mg PO BID 03/22/19 03/22/19 History Furosemide [Lasix] 40 mg PO DAILY 03/22/19 03/22/19 History Losartan Potassium 100 mg PO DAILY 03/22/19 03/22/19 History HYDROcodone/APAP 5-325MG [[place] 1 each PO Q4HR PRN #18 tab 03/25/19 Rx 5-325] INSULIN LISPRO (HumaLOG) [humaLOG] 0 unit SQ ACHS #1 vial 03/25/19 Rx Allergies Allergy/AdvReac Type Severity Reaction Status Date / Time Iodinated Contrast Media Allergy Rash/Hives Verified 03/22/19 16:36 [Iodinated Contrast Media - IV Dye] Physical Exam Osteopathic Statement: *. No significant issues noted on an osteopathic stru ctural exam other than those noted in the History and Physical/Consult. Vitals: Vital Signs Temp Pulse Resp BP Pulse Ox 03/23/19 16:00 70 19 183/81 95 03/23/19 12:00 65 19 156/67 95 03/23/19 08:00 72 18 130/67 98 03/23/19 04:00 98.0 F 76 18 180/96 93 L 03/23/19 00:00 99.6 F 81 18 134/69 93 L 03/22/19 23:31 98.8 F 79 18 159/75 96 Intake and Output 03/23/19 03/23/19 03/23/19 06:59 14:59 22:59 Intake Total 125 240 Balance 125 240 Intake: Oral 125 240 Other: Voiding Method Toilet Bedside Commode Weight 83.9 kg GENERAL: This is a -78 year-old in no apparent distress at the time of examination. Pleasant and cooperative. HEENT: Head is atraumatic, normocephalic. Pupils are equal, round, and reactive to light. Sclerae anicteric. Conjunctivae are clear. Mucus membranes of the mouth are moist. Neck is supple. RESPIRATORY: Clear to auscultation. No wheezes, rales, or rhonchi. No use of accessory muscles. Well screening things. CARDIOVASCULAR: Regular rate and rhythm. S1 and S2 noted. No systolic or diastolic murmur auscultated. No JVD noted. No S3 or S4 noted. GASTROINTESTINAL: No distention noted. Abdomen soft and round. Normal active bowel sounds auscultated x 4 quadrants. No pain or tenderness noted upon palpation. INTEGUMENTARY: No cyanosis. No jaundice. No rashes noted. No cellulitis noted. EXTREMITIES: 2+ peripheral pulses. No evidence of peripheral edema. No calf tenderness noted. NEUROLOGIC: Cranial nerves II-XII intact. PSYCHIATRIC: Awake, alert, and oriented X 3. Patient does get confused easily Results CBC & Chem 7: 03/22/19 13:44 03/22/19 13:44 Labs: Abnormal Lab Results - Last 24 Hours (Table) 03/23/19 03/23/19 03/23/19 Range/Units 05:57 11:48 17:24 POC Glucose (mg/dL) 123 H 116 H 114 H (75-99) mg/dL 03/23/19 Range/Units 20:09 POC Glucose (mg/dL) 120 H (75-99) mg/dL Thrombosis Risk Factor Assmnt - Choose All That Apply Each Risk Factor Represents 3 Points: Age 75 years or older Thrombosis Risk Factor Assessment Total Risk Factor Score: 3 Thrombosis Risk Factor Assessment Level: Moderate Risk Assessment and Plan (1) Myoclonia Status: Acute Code(s): G25.3 - MYOCLONUS SNOMED Code(s): 32649760 (2) Diabetes type 2, uncontrolled Status: Acute Code(s): E11.65 - TYPE 2 DIABETES MELLITUS WITH HYPERGLYCEMIA SNOMED Code(s): 012043131 (3) Medically noncompliant Status: Acute Code(s): Z91.19 - PATIENT'S NONCOMPLIANCE W OTH MEDICAL TREATMENT AND REGIMEN SNOMED Code(s): 392618854 (4) Moderate dementia Status: Acute Code(s): F03.90 - UNSPECIFIED DEMENTIA WITHOUT BEHAVIORAL DIST URBANCE SNOMED Code(s): 03280289 (5) Fall Status: Acute Code(s): W19.XXXA - UNSPECIFIED FALL, INITIAL ENCOUNTER SNOMED Code(s): 3893990 (6) Rib fractures Status: Acute Code(s): S22.39XA - FRACTURE OF ONE RIB, UNSP SIDE, INIT FOR CLOS FX SNOMED Code(s): 86181793 (7) Syncope Status: Acute Code(s): R55 - SYNCOPE AND COLLAPSE SNOMED Code(s): 914075109 Plan: Currently patient is admitted to surgical services for her barotrauma to her left ribs. She'll be switched over to my service and will assume care hours near syncopal or syncopal reaction and fall are being evaluated currently by cardio. Her neurological status seems intact. Patient has been very noncompliant in doing some medical experimentation with withdrawing her medications from herself. Family is at bedside to and they are aware of the situation. Fully discussed with them and patient will need some inpatient rehabilitation and possibly evaluation of medications.( Time with Patient: Greater than 30
--- NOTE | 2019-03-26 17:14 | P.PN ---
Subjective Progress Note Date: 03/24/19 This a pleasant 78-year-old white female [facility] with multiple falls or last fall sustained fracture and trauma and barrel trauma to her left chest where she is admitted to the trauma service. She did sustain left rib fractures multiple. She is currently in bed with with moderate dis comfort due to pain. She admitted to having dizziness and confusion which her daughter and granddaughter says this has been progressive in nature and worsening over the past month as a result of ongoing dementia that was diagnosed by Dr. Ordonez. 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 Evaluated by pain management, recommendations noted. Lumbar spine CT ordered. Ambulating with walker with in room, to the bathroom , with assist, tolerated exertion well. Good diet intake, no nausea or vomiting. Family and at bedside discussing subacute rehab at discharge. Objective - Vital Signs Vital signs: Vital Signs Temp 98.4 F 03/24/19 12:00 Pulse 59 L 03/24/19 12:00 Resp 18 03/24/19 12:00 BP 162/74 03/24/19 12:00 Pulse Ox 95 03/24/19 12:00 Intake & Output 03/23/19 03/24/19 03/24/19 18:59 06:59 18:59 Intake Total 365 Balance 365 Weight 93.8 kg Intake: Oral 365 Other: Voiding Method Toilet Bedside Commode # Voids 1 - Exam GENERAL: This is a -78 year-old in no apparent distress at the time of examination. Pleasant and cooperative. HEENT: Head is atraumatic, normocephalic. Pupils are equal, round, and reactive to light. Sclerae anicteric. Conjunctivae are clear. Mucus membranes of the mouth are moist. Neck is supple. RESPIRATORY: Clear to auscultation. No wheezes, rales, or rhonchi. No use of accessory muscles. Well screening things. CARDIOVASCULAR: Regular rate and rhythm. S1 and S2 noted. No systolic or diastolic murmur auscultated. No JVD noted. No S3 or S4 noted. GASTROINTESTINAL: No distention noted. Abdomen soft and round. Normal active bowel sounds auscultated x 4 quadrants. No pain or tenderness noted upon p alpation. INTEGUMENTARY: No cyanosis. No jaundice. No rashes noted. No cellulitis noted. EXTREMITIES: 2+ peripheral pulses. No evidence of peripheral edema. No calf tenderness noted. NEUROLOGIC: Cranial nerves II-XII intact. PSYCHIATRIC: Awake, alert, and oriented X 3. Patient does get confused easily - Labs CBC & Chem 7: 03/22/19 13:44 03/22/19 13:44 Labs: Abnormal Lab Results - Last 24 Hours (Table) 03/23/19 03/23/19 03/24/19 Range/Units 17:24 20:09 06:05 POC Glucose (mg/dL) 114 H 120 H 132 H (75-99) mg/dL Assessment and Plan Assessment: (1) Myoclonia Status: Acute Code(s): G25.3 - MYOCLONUS SNOMED Code(s): 11975117 (2) Diabetes type 2, uncontrolled Status: Acute Code(s): E11.65 - TYPE 2 DIABETES MELLITUS WITH HYPERGLYCEMIA SNOMED Code(s): 244941598 (3) Medically noncompliant Status: Acute Code(s): Z91.19 - PATIENT'S NONCOMPLIANCE W [facility] MEDICAL TREATMENT AND REGIMEN SNOMED Code(s): 451638682 (4) Moderate dementia Status: Acute Code(s): F03.90 - UNSPECIFIED DEMENTIA WITHOUT BEHAVIORAL DISTURBANCE SNOMED Code(s): 87202482 (5) Fall Status: Acute Code(s): W19.XXXA - UNSPECIFIED FALL, INITIAL ENCOUNTER SNOMED Code(s): 0375209 (6) Rib fractures Status: Acute Code(s): S22.39XA - FRACTURE OF ONE RIB, UNSP SIDE, INIT FOR CLOS FX SNOMED Code(s): 78033477 (7) Syncope Status: Acute Code(s): R55 - SYNCOPE AND COLLAPSE SNOMED Code(s): 976834668 Plan: Continue on current medication regime ,monitoring and symptomatic treatment. Pain management, lumbar spine CT ordered. PT/OT. Social work consulted for subacute rehab at discharge. Discharge planning in progress for tomorrow. The impression and plan of care has been dictated as directed. : I performed a history and examination of this patient, discussed the same with the dictator. I agree with the dictator's note ,documented as a scribe. Any additional findings or plans will be noted.
[2019-03-28] MEDS ORDERED: NON FORMULARY DRUG (Alendronate Sodium [Fosamax] 70 MG) PO SCH (10:09)
--- NOTE | 2019-03-29 12:19 | CDI ---
Documentation Clarification Form Date: 03/29/19 From: Shell Mccarty Phone: If you have a question about this query, please contact Freya Pope, Linen Aide at [phone] between 8am and 5pm. Admit Date: 03/22/19 Discharge Date:03/25/19 Patient Name: Roxanna Ferrera Visit Number: [id number] ATTENTION: The Clinical Documentation Specialists (CDI) and [facility] Coding Staff appreciate your assistance in clarifying documentation. Please respond to the clarification below the line at the bottom and electronically sign. The CDI & [facility] Coding staff will review the response and follow-up if needed. Please note: Queries are made part of the Legal Health Record. If you have any questions, please contact the author of this message via ITS. Dear Dr. Jean The patient has uncontrolled diabetes, as indicated in the H&P and in Yanique Sheehan's 03/24 progress note. History/Risk Factors: Diabetes, dementia, medication noncompliance Clinical Indicators: Elevated glucose Lab: POC glucose 96 to 134, Glucose 120 Treatment: Glucophage 500 mg TID In order to capture the severity of Illness and necessary documentation specificity, please clarify the uncontrolled diabetes: Hyperglycemia Hypoglycemia Other, please specify Unable to Determine Patient presented with uncontrolled diabetes with hyperglycemic reaction. During her hospital stay her sugars were well controlled because she was back on her current medications as well as sliding scale of insulin. MTDD
--- NOTE | 2019-03-29 12:28 | CDI ---
Documentation Clarification Form Date: 03/29/19 From: Shell Mccarty Phone: If you have a question about this query, please contact Freya Pope [employer] Machine Feeder at [phone] between 8am and 5pm. Admit Date: 03/22/19 Discharge Date: 03/25/19 Patient Name: Roxanna Ferrera Visit Number: [id number] ATTENTION: The Clinical Documentation Specialists (CDI) and [facility] Coding Staff appreciate your assistance in clarifying documentation. Please respond to the clarification below the line at the bottom and electronically sign. The CDI & [facility] Coding staff will review the response and follow-up if needed. Please note: Queries are made part of the Legal Health Record. If you have any questions, please contact the author of this message via ITS. Dear Dr. Jean Patient has been diagnosed with a fracture of the left 5th, 6th and 8th ribs History/Risk Factors: Frequent falls, osteoporosis Clinical Indications: Left sided chest pain X-Ray Results Cortical irregularity along the left anterolateral and lateral fifth, sixth, seventh and eighth ribs. Correlated for point tenderness here for suspected nondisplaced rib fractures. Treatment: [place] 5-325 1 PO q 4 hr prn pain scale 2 to 5 In your professional opinion, please specify the following: Etiology of fracture: Traumatic Pathological (specify cause): Neoplastic disease Osteoporosis Other (please specify): Unable to determine The etiology of the fractured ribs was traumatic to secondary to a fall at home and blunt trauma to the left chest wall. HAZEL
== END 2019-03-25 13:12 | DRG 149 ==
LOC: EC 12:25 → 3SCARD 15:12
PROVIDERS: ADMIT Family Medicine; ATTEND Family Medicine
DX: R42 Dizziness and giddiness (principal); S22.42XA Multiple fractures of ribs, left side, initial encounter for closed fracture; F03.90 Unspecified dementia, unspecified severity, without behavioral disturbance, psychotic disturbance, mood disturbance, and anxiety; E03.9 Hypothyroidism, unspecified; E11.65 Type 2 diabetes mellitus with hyperglycemia; M81.0 Age-related osteoporosis without current pathological fracture; E78.5 Hyperlipidemia, unspecified; F41.9 Anxiety disorder, unspecified; G25.81 Restless legs syndrome; G40.909 Epilepsy, unspecified, not intractable, without status epilepticus; I10 Essential (primary) hypertension; I25.10 Atherosclerotic heart disease of native coronary artery without angina pectoris; K43.9 Ventral hernia without obstruction or gangrene; K57.30 Diverticulosis of large intestine without perforation or abscess without bleeding; R29.6 Repeated falls; K21.9 Gastro-esophageal reflux disease without esophagitis; R32 Unspecified urinary incontinence; M25.551 Pain in right hip; M25.552 Pain in left hip; R25.1 Tremor, unspecified; R55 Syncope and collapse; M54.5 Low back pain; K44.9 Diaphragmatic hernia without obstruction or gangrene; M19.90 Unspecified osteoarthritis, unspecified site; Z79.02 Long term (current) use of antithrombotics/antiplatelets; Z79.4 Long term (current) use of insulin; Z79.82 Long term (current) use of aspirin; Z79.890 Hormone replacement therapy; Z79.899 Other long term (current) drug therapy; Z79.83 Long term (current) use of bisphosphonates; Z95.5 Presence of coronary angioplasty implant and graft; Z91.19 Patient's noncompliance with other medical treatment and regimen; Z90.710 Acquired absence of both cervix and uterus; Z87.891 Personal history of nicotine dependence; Z91.041 Radiographic dye allergy status; Z82.49 Family history of ischemic heart disease and other diseases of the circulatory system; W19.XXXA Unspecified fall, initial encounter; Y92.009 Unspecified place in unspecified non-institutional (private) residence as the place of occurrence of the external cause
CPT/HCPCS: 36415; 70450; 71250; 72125; 73521; 74176; 80053; 81003; 82375; 85025; 85610; 85730; 93005; 93270; 93306; 99285

== ENCOUNTER → 2019-04-07 | Outpatient (CLI) | payer MEDICARE, BC ==
[2019-04-07 13:19] VITALS: BP 134/83; PULSE 71; RESP 16
--- NOTE | 2019-04-07 13:30 | P.PAINPG ---
Subjective Progress Note Date: 04/07/19 This is a follow-up visit for this 78 years old female with a chronic history of severe low back pain, she was admitted to [facility] a few weeks ago and she was seen as an inpatient consultation, and she is here today for follow-up visit, patient continued to have severe low back pain with radiation to the buttock , and the pain is associated with numbness and burning sensation in the buttock area, she is able to ambulate freely without difficulty, and she is currently on [place] 5/325 she did deny any side effect of the medication, she denies any fever or night sweats, and she reported that the pain is constant and increases with any activity and increased with staying in the same position for periods of time. Objective - Vital Signs Vital signs: Vital Signs Temp Pulse 71 04/07/19 12:13 Resp 16 04/07/19 12:13 BP 134/83 04/07/19 12:13 Pulse Ox 96 04/07/19 12:13 Intake & Output 04/06/19 04/07/19 04/07/19 18:59 06:59 18:59 Weight 94.801 kg - Exam Physical Examinations : -Constitutiona : Cooperative , not in acute distress . -HEENT : nech : supple , no Lymphadenopathy , normal thyroid size . : eyes : no ptosis , no icterus, no photophobia . : ENT : normal of hearing , normal oropharynx , no Thrush . - Respiratory : Chest clear to auscultations Bilaterally , no wheezing , no Rhonchi . - Cardiovascula : regular rate and rhythem , S1 , S2 , no S3 , no S4. - Gastrointestina : abdomen soft no tenderness , bowel sounds , no organomegally . - Genitourinary : Defferred . - neurologic : Cranial nerve II to XII intact , no focal neurological deffecit . -psychatric : alert , oriented X 3 , appropriate affect , intact judgment and insight . -Lymphatic : no Lymphadenopathy . - musculoskeltal : Lumber spine moter stegnth lower extremities ,thigh and legs 5/5 Right side , 5/5 Left side deep tendon reflexes : normal Knee Jerk , normal ankle Jerk lumber facet Loading Test =positive Right , positive Left Range of motion of the lumbar spine Flexion 30 degrees, extension 10 degrees strait leg raising test = positive at 30 degree Fabere test= positive Right , and positive LT . Sever tenderness over the coccyx area. Computed tomography scan of the pelvic and coccyx area done [facility] in March 2019= lumbar degenerative disc disease and lumbar spondylosis Assessment and Plan Plan: Assessment and plan= chronic severe low back pain secondary to lumbar spondylosis with lumbar facet arthropathy, and lumbar degenerative disc Disease Coccydynia. Patient will be good candidate to have caudal epidural steroid injection, discussed this option with the patient she preferred not to have any interventions, she preferred to try medication management first, patient given prescription for Mobic 7.5 mg 1 tablet by mouth daily And she could benefit from Neurontin 100 mg twice a day and she will be seen in the pain clinic after use the medication for 6 weeks Time with Patient: Less than 30 PQRS Measure Charge Sheet Measure #130: Documentation of Current Meds in Medical Chart: Patient's medications documented in chart Measure #226: Tobacco Use: Screen & Cessation Intervention: Pt not a tobacco user Measure #111: Pneumonia Vaccination: Pneumococcal vaccine NOT administered or previously given Measure #47: Advance Care Plan: Advance care planning discussed & documented, pt chose/unable to give Measure #412: Opioid Treatment Agreement: No documentation of signed opioid treatment agreement Measure #408: Opioid Therapy Follow-up Evaluation: Patient had NO f/u eval minimum every 3 months during opioid therapy Measure #317: Preventitive Care & Scrn High Bld Press & F/U: Normal blood pressure, f/u not required Measure #128: Body Mass Index (BMI) Screening & Follow-up: BMI documented ABOVE normal parameters - f/u documented Measure #131: Pain Assessment & Follow-up: Pain positive & plan documented, Follow-up scheduled Measure #431: Unhealthy Alcohol Use Preventative Care & Scrn: Patient not identified as an unhealthy alcohol user PQRS Narrative: Smoking Status Former smoker Blood Pressure 134/83 Pain Intensity [Buttock] 5 Scale Used Numeric (1 - 10) Hx Alcohol Use (MH) No Home Medications: Ambulatory Orders Aspirin 81 mg PO HS 03/28/14 Atorvastatin [Lipitor] 80 mg PO HS 03/28/14 Cholecalciferol [Vitamin D3 (25 Mcg = 1000 Iu)] 5,000 unit PO DAILY 03/28/14 Omeprazole [PriLOSEC] 20 mg PO DAILY 03/28/14 Alendronate Sodium [Fosamax] 70 mg PO CORDOVA 03/19/17 Levothyroxine Sodium [Synthroid] 137 mcg PO QAM 03/19/17 Meclizine [Antivert] 25 mg PO TID 03/19/17 [place]-3 Fatty Acids [[place]-3] 1,000 mg PO BID 03/19/17 Chloride Silver 1 tbsp PO BID 11/11/18 Dicyclomine [Bentyl] 10 mg PO Q8H PRN 11/11/18 Lisinopril [Zestril] 2.5 mg PO QAM 11/11/18 [place] 1 tsp PO DAILY 11/11/18 Vitamin B Complex 1 cap PO DAILY 11/11/18 metFORMIN HCL [Glucophage] 500 mg PO TID 11/11/18 rOPINIRole HCL [Requip] 0.5 mg PO HS 11/11/18 Divalproex [Depakote] 250 mg PO BID 03/22/19 Furosemide [Lasix] 40 mg PO DAILY 03/22/19 Losartan Potassium 100 mg PO DAILY 03/22/19 HYDROcodone/APAP 5-325MG [[place] 5-325] 1 each PO Q4HR PRN #18 tab 03/25/19 INSULIN LISPRO (HumaLOG) [humaLOG] 0 unit SQ ACHS #1 vial 03/25/19 Dicyclomine [Bentyl] 1 mg PO Q8HR PRN 04/07/19 Controlled Substance Measures - Controlled Substance Measures Is patient prescribed a controlled substance at discharge?: No
== END | disposition home or self-care (01) ==
LOC: PNWHC3 11:45
PROVIDERS: ATTEND Specialist
DX: G89.29 Other chronic pain (principal); M51.36 Other intervertebral disc degeneration, lumbar region; M47.816 Spondylosis without myelopathy or radiculopathy, lumbar region; M46.96 Unspecified inflammatory spondylopathy, lumbar region; M53.3 Sacrococcygeal disorders, not elsewhere classified; Z87.891 Personal history of nicotine dependence; Z79.82 Long term (current) use of aspirin; Z79.84 Long term (current) use of oral hypoglycemic drugs; Z79.4 Long term (current) use of insulin; Z79.899 Other long term (current) drug therapy
CPT/HCPCS: 99211

== ENCOUNTER → 2019-04-23 | Outpatient (CLI) | payer MEDICARE, BC ==
--- NOTE | 2019-04-23 15:45 | XR ---
EXAMINATION TYPE: XR chest 2V DATE OF EXAM: 04/23/2019 COMPARISON: Prior chest x-ray 08/17/2017 HISTORY: Shortness of breath, right rib pain TECHNIQUE: Frontal and lateral views of the chest are obtained. FINDINGS: There is no focal air space opacity, pleural effusion, or pneumothorax seen. The cardiac silhouette size is stable and within normal limits. The osseous structures are intact. The aorta is dense. Prominent lung volumes are consistent with underlying COPD. There is thoracic spondylosis. IMPRESSION: No acute cardiopulmonary process. Bone scan may be of increased sensitivity for occult f racture.
== END | disposition home or self-care (01) ==
LOC: RADXRMAIN 14:41
PROVIDERS: ATTEND Family Medicine
DX: R06.02 Shortness of breath (principal); R07.81 Pleurodynia; Z87.81 Personal history of (healed) traumatic fracture
CPT/HCPCS: 71046

== ENCOUNTER → 2019-05-11 | Outpatient (CLI) | payer MEDICARE, BC ==
--- NOTE | 2019-05-11 11:14 | US ---
EXAMINATION TYPE: US abdomen complete DATE OF EXAM: 05/11/2019 COMPARISON: NONE CLINICAL HISTORY: R10.11 right upper quadrant pain. EXAM MEASUREMENTS: Liver Length: 17.6 cm Gallbladder Wall: Surgically absent CBD: 0.7 cm Spleen: 11.3 cm Right Kidney: 11.1 x 4.0 x 5.1 cm Left Kidney: 11.6 x 5.1 x 4.8 cm Pancreas: portions visualized wnl, partially obscured by bowel gas Liver: wnl Gallbladder: Surgically absent Evidence for sonographic Cruz's sign: no CBD: wnl for the patient's age Spleen: wnl Right Kidney: No hydronephrosis or masses seen Left Kidney: No hydronephrosis or masses seen Upper IVC: wnl Abd Aorta: bifurcation obscured by bowel gas The liver is homogenous. The intrahepatic portion of the IVC and proximal abdominal aorta are within normal limits. There is no evidence of cholelithiasis. Common bile duct is unremarkable. The visu alized portions of the pancreas are homogenous. The spleen is unremarkable. Kidneys are symmetric a nd free of hydronephrosis. No renal lesions are seen. IMPRESSION: Unremarkable abdominal ultrasound. No sonographic evidence of cholelithiasis nor acute ch olecystitis.
== END | disposition home or self-care (01) ==
LOC: RADUSWWP 10:09
PROVIDERS: ATTEND Family Medicine
DX: R10.11 Right upper quadrant pain (principal); Z91.041 Radiographic dye allergy status
CPT/HCPCS: 76700

== ENCOUNTER → 2019-05-20 | Outpatient (CLI) | payer MEDICARE, BC ==
[2019-05-20 12:54] VITALS: BP 120/72; PULSE 69; RESP 16
--- NOTE | 2019-05-20 13:31 | P.PAINPG ---
Subjective Progress Note Date: 05/20/19 This is a follow-up visit for this 78 years old female with a chronic history of severe low back pain Objective - Vital Signs Vital signs: Vital Signs Temp Pulse 69 05/20/19 12:48 Resp 16 05/20/19 12:48 BP 120/72 05/20/19 12:48 Pulse Ox 97 05/20/19 12:48 - Exam -Constitutiona : Cooperative , not in acute distress . -HEENT : nech : supple , no Lymphadenopathy , normal thyroid size . : eyes : no ptosis , no icterus, no photophobia . : ENT : normal of hearing , normal oropharynx , no Thrush . - Respiratory : Chest clear to auscultations Bilaterally , no wheezing , no Rhonchi . - Cardiovascula : regular rate and rhythem , S1 , S2 , no S3 , no S4. - Gastrointestina : abdomen soft no tenderness , bowel sounds , no organomegally . - Genitourinary : Defferred . - neurologic : Cranial nerve II to XII intact , no focal neurological deffecit . -psychatric : alert , oriented X 3 , appropriate affect , intact judgment and insight . -Lymphatic : no Lymphadenopathy . - musculoskeltal : Lumber spine moter stegnth lower extremities ,thigh and legs 5/5 Right side , 5/5 Left side deep tendon reflexes : normal Knee Jerk , normal ankle Jerk lumber facet Loading Test =positive Right , positive Left Range of motion of the lumbar spine Flexion 30 degrees, extension 10 degrees strait leg raising test = negative bilaterally Fabere test= negative bilaterally No tenderness over the coccyx area. Assessment and Plan Plan: Assessment and plan= chronic severe low back pain secondary to lumbar spondylosis with lumbar facet arthropathy, and lumbar degenerative disc Disease Coccydynia. Currently most the pain is coming from the facetogenic component, Discussed with the patient the option of medication management versus interventional pain management, patient prefers not to have any medication , and also she isn't nervous about any interventions, she preferred to wait before she will be scheduled to have any pain management interventions, in the future if patient Wished to proceed we can schedule her to have diagnostic medial branch block lumbar area L3, L4, L5 Medication management= patient preferred not to use any medication, and she reported that none of the medications help her. She will follow up in the pain clinic when necessary Time with Patient: Less than 30 PQRS Measure Charge Sheet Measure #130: Documentation of Current Meds in Medical Chart: Patient's medications documented in chart Measure #226: Tobacco Use: Screen & Cessation Intervention: Pt not a tobacco user Measure #111: Pneumonia Vaccination: Pneumococcal vaccine NOT administered or previously given Measure #47: Advance Care Plan: Advance care planning discussed & documented, pt chose/unable to give Measure #412: Opioid Treatment Agreement: No documentation of signed opioid treatment agreement Measure #408: Opioid Therapy Follow-up Evaluation: Patient had NO f/u eval minimum every 3 months during opioid therapy Measure #317: Preventitive Care & Scrn High Bld Press & F/U: Normal blood pressure, f/u not required Measure #128: Body Mass Index (BMI) Screening & Follow-up: BMI documented ABOVE normal parameters - f/u documented Measure #131: Pain Assessment & Follow-up: Pain positive & plan documented, Follow-up scheduled Measure #431: Unhealthy Alcohol Use Preventative Care & Scrn: Patient not identified as an unhealthy alcohol user PQRS Narrative: Smoking Status Former smoker Blood Pressure 120/72 Pain Intensity [Buttock] 0 Scale Used Numeric (1 - 10) Hx Alcohol Use (MH) No Home Medications: Ambulatory Orders Aspirin 81 mg PO HS 03/28/14 Atorvastatin [Lipitor] 80 mg PO HS 03/28/14 Cholecalciferol [Vitamin D3 (25 Mcg = 1000 Iu)] 5,000 unit PO DAILY 03/28/14 Omeprazole [PriLOSEC] 20 mg PO DAILY 03/28/14 Alendronate Sodium [Fosamax] 70 mg PO CORDOVA 03/19/17 Meclizine [Antivert] 25 mg PO TID 03/19/17 [place]-3 Fatty Acids [[place]-3] 1,000 mg PO BID 03/19/17 Chloride Silver 1 tbsp PO BID 11/11/18 Lisinopril [Zestril] 2.5 mg PO QAM 11/11/18 [place] 1 tsp PO DAILY 11/11/18 Vitamin B Complex 1 cap PO DAILY 11/11/18 metFORMIN HCL [Glucophage] 500 mg PO TID 11/11/18 Divalproex [Depakote] 250 mg PO BID 03/22/19 Furosemide [Lasix] 40 mg PO DAILY 03/22/19 Losartan Potassium 100 mg PO DAILY 03/22/19 Levothyroxine Sodium 150 mcg PO DAILY 05/18/19 Meloxicam [Mobic] 7.5 mg PO DAILY 05/18/19 Potassium Gluconate 99 mg PO DAILY 05/18/19 rOPINIRole HCL [Requip] 1 mg PO HS 05/18/19 Controlled Substance Measures - Controlled Substance Measures Is patient prescribed a controlled substance at discharge?: No
== END | disposition home or self-care (01) ==
LOC: PNWHC3 12:31
PROVIDERS: ATTEND Specialist
DX: G89.29 Other chronic pain (principal); M51.36 Other intervertebral disc degeneration, lumbar region; M47.816 Spondylosis without myelopathy or radiculopathy, lumbar region; M53.3 Sacrococcygeal disorders, not elsewhere classified; Z87.891 Personal history of nicotine dependence; Z79.899 Other long term (current) drug therapy; Z79.82 Long term (current) use of aspirin; Z79.84 Long term (current) use of oral hypoglycemic drugs; Z79.890 Hormone replacement therapy; Z79.1 Long term (current) use of non-steroidal anti-inflammatories (NSAID)
CPT/HCPCS: 99211

== ENCOUNTER → 2019-10-21 | Outpatient (CLI) | payer MEDICARE, BC ==
--- NOTE | 2019-10-25 14:08 | MM ---
Reason for exam: screening (asymptomatic). Last mammogram was performed 1 year and 1 month ago. History: Patient is postmenopausal. Physical Findings: A clinical breast exam by your physician is recommended on an annual basis and results should be correlated with mammographic findings. MG 3D Screening Mammo W/Cad Bilateral CC and MLO view(s) were taken. Prior study comparison: September 14, 2018, bilateral MG 3d screening mammo w/cad. August 15, 2017, bilateral MG 3d screening mammo w/cad. There are scattered fibroglandular densities. There are benign appearing round calcifications bilaterally. There is chronic nodularity in the right breast. There is no discrete abnormality. ASSESSMENT: Benign, BI-RAD 2 RECOMMENDATION: Routine screening mammogram of both breasts in 1 year.
== END | disposition home or self-care (01) ==
LOC: RADMAMWWP 09:32
PROVIDERS: ATTEND Family Medicine
DX: Z12.31 Encounter for screening mammogram for malignant neoplasm of breast (principal)
CPT/HCPCS: 77063; 77067

== ENCOUNTER 2020-01-02 10:11 | Emergency (ER) | payer MEDICARE, BC ==
[2020-01-02 10:31] VITALS: BP 114/70; PULSE 68; RESP 18; TEMP 97.8
[2020-01-02] MEDS ORDERED: KETOROLAC 15 MG/ML 1 ML VIAL IM STA (10:43)
[2020-01-02] MEDS ORDERED: LIDOCAINE 5% PATCH TOPICAL STA (10:43)
--- NOTE | 2020-01-02 10:46 | ED ---
General Adult HPI - General Chief complaint: Fall Stated complaint: Fall, Rib pain Time Seen by Provider: 01/02/20 10:36 Source: patient Mode of arrival: ambulatory Limitations: no limitations - History of Present Illness Initial comments: Dictation was produced using SquaredOut dictation software. please excuse any grammatical, word or spelling errors. This patient was cared for during a federal and state declared state of emergency secondary to Covid 19 Chief Complaint: 79-year-old male presents with rib pain History of Present Illness: This 71-year-old female she has multiple comorbidities on Friday patient states she fell falling towards her right side. She struck her head and her neck and landed on her right side. Patient states that since then she's been developing worsening right-sided pain. She states that symptoms in her head and neck are completely resolved. Patient states she has tenderness of palpation over the right lateral ribs. States it's painful in her she raises her arms or takes deep breath. She describes it as a sharp severe pain. Whenever she breathes more quietly and does not manipulate the are a of her symptoms are much more improved. Denies any fever, chills or night sweats. She does report short of breath only because it's painful when she takes a deep breath. She's broken ribs in the past and her symptoms today feel similar The ROS documented in this emergency department record has been reviewed and confirmed by me. Those systems with pertinent positive or negative responses ruffin ve been documented in the HPI. All other systems are other negative and/or noncontributory. PHYSICAL EXAM: General Impression: Alert and oriented x3, acute distress secondary pain HEENT: Normocephalic atraumatic, extra-ocular movements intact, pupils equal and reactive to light bilaterally, mucous membranes moist. Cardiovascular: Heart regular rate and rhythm Chest: Lungs clear to auscultation bilaterally, no tachypnea, tenderness to palpation along the entire right sided thorax. No flail physiology noted on physical exam Abdomen: abdomen soft, non-tender, non-distended, no organomegaly Musculoskeletal: Pulses present and equal in all extremities, no peripheral edema Motor: no focal deficits noted Neurological: CN II-XII grossly intact, no focal motor or sensory deficits noted Skin: Intact with no visualized rashes Psych: Normal affect and mood ED course: 79-year-old female presents with right-sided thoracic pain after fall on Friday. All signs upon arrival are within acceptable limits. Given her age and comorbidities believe patient would benefit more from CT than just plain films. Computed tomography scan of the chest shows old healed fractures of the right lateral 8/9 and 10th ribs. There does appear to be interval healing change of the left lateral 6/7 and eighth ribs. A 6 mm right lung pulmonary nodule that is minimally larger compared to 03/22/2019 CT. patient is notified of the results of her computed tomography scan. She is told to follow-up with her primary care physician regarding this nodule. Patient given some analgesics to go home with. She is advised to use an sparingly. - Related Data Home Medications Medication Instructions Recorded Confirmed Aspirin 81 mg PO HS 03/28/14 05/20/19 Atorvastatin [Lipitor] 80 mg PO HS 03/28/14 05/20/19 Cholecalciferol [Vitamin D3 (25 5,000 unit PO DAILY 03/28/14 05/20/19 Mcg = 1000 Iu)] Omeprazole [PriLOSEC] 20 mg PO DAILY 03/28/14 05/20/19 Alendronate Sodium [Fosamax] 70 mg PO CORDOVA 03/19/17 05/20/19 Meclizine [Antivert] 25 mg PO TID 03/19/17 05/20/19 [place]-3 Fatty Acids [[place]-3] 1,000 mg PO BID 03/19/17 05/20/19 Chloride Silver 1 tbsp PO BID 11/11/18 05/20/19 [place] 1 tsp PO DAILY 11/11/18 05/20/19 Vitamin B Complex 1 cap PO DAILY 11/11/18 05/20/19 lisinopriL [Zestril] 2.5 mg PO QAM 11/11/18 05/20/19 metFORMIN HCL [Glucophage] 500 mg PO TID 11/11/18 05/20/19 Divalproex [Depakote] 250 mg PO BID 03/22/19 05/20/19 Furosemide [Lasix] 40 mg PO DAILY 03/22/19 05/20/19 Losartan Potassium 100 mg PO DAILY 03/22/19 05/20/19 Levothyroxine Sodium 150 mcg PO DAILY 05/18/19 05/20/19 Potassium Gluconate 99 mg PO DAILY 05/18/19 05/20/19 rOPINIRole HCL [Requip] 1 mg PO HS 05/18/19 05/20/19 Previous Rx's Medication Instructions Recorded Meloxicam [Mobic] 7.5 mg PO DAILY PRN #30 tab 06/09/19 HYDROcodone/APAP 5-325MG [[place] 1 tab PO Q6HR PRN 3 Days #6 tab 01/02/20 5-325] Allergies Allergy/AdvReac Type Severity Reaction Status Date / Time Iodinated Contrast Media Allergy Intermediate Rash/Hives Verified 01/02/20 10:30 [Iodinated Contrast Media - IV Dye] Review of Systems ROS Statement: Those systems with pertinent positive or pertinent negative responses have been documented in the HPI. ROS Other: All systems not noted in ROS Statement are negative. 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 History of Any Multi-Drug Resistant Organisms: None Reported Past Surgical History: Cholecystectomy, Heart Catheterization With Stent, Hernia Repair, Hysterectomy Additional Past Surgical History / Comment(s): , BROKEN RIBS IN THE PAST 2 STENTS MAYBE 3-4 YRS AGO, Past Anesthesia/Blood Transfusion Reactions: No Reported Reaction Date of Last Stent Placement:: 04/07/2013 Past Psychological History: Anxiety Smoking Status: Never smoker Past Alcohol Use History: None Reported Past Drug Use History: None Reported - Past Family History Mother Family Medical History: No Reported History Additional Family Medical History / Comment(s): DEMENTIA Father Family Medical History: No Reported History Additional Family Medical History / Comment(s): OLD AGE General Exam Limitations: no limitations Course Vital Signs 01/02/20 10:24 Temperature 97.8 F Pulse Rate 68 Respiratory 18 Rate Blood Pressure 114/70 O2 Sat by Pulse 98 Oximetry Disposition Clinical Impression: Fall, Rib pain Disposition: HOME SELF-CARE Condition: Good Instructions (If sedation given, give patient instructions): Fall Prevention (ED) Prescriptions: HYDROcodone/APAP 5-325MG [[place] 5-325] 1 tab PO Q6HR PRN 3 Days #6 tab PRN Reason: Severe Pain Is patient prescribed a controlled substance at d/c from ED?: Yes If prescribed controlled substance>3 days was MAPS reviewed?: Prescribed <3 Days Referrals: Chad Jean DO [Primary Care Provider] - 1-2 days Time of Disposition: 11:31
--- NOTE | 2020-01-02 11:22 | CT ---
EXAMINATION TYPE: CT chest wo con DATE OF EXAM: 01/02/2020 COMPARISON: 03/22/2019 HISTORY: 79-year-old female Right sided rib pain post fall TECHNIQUE: Contiguous axial scanning of the chest without IV contrast. Coronal and sagittal reconstru ctions performed. CT DLP: 476.9 mGycm Automated exposure control for dose reduction was used. FINDINGS: Heart normal size without pericardial effusion. Three-vessel coronary artery calcifications are prese nt. Aorta normal caliber with conventional arch vessel branching anatomy. No thoracic lymphadenopathy by CT size criteria. 6 mm peripheral right midlung pulmonary nodule, axial images 31 appears slightly larger versus 4 mm, previously. Stable 4 mm nodule along the left superior major fissure suggestive of a subpleural lymph node. Stran dy atelectasis both lower lungs. No consolidation or pleural effusion. Tiny hiatal hernia. Visualized upper abdomen otherwise shows cholecystectomy clips and splenic artery calcifications as well as diverticular change of the splenic flexure of the colon. Bones: Some cortical irregularity involving the right lateral eighth, ninth, and 10th ribs. These were prese nt back on 03/22/2019 compatible with old healed fracture deformities. Interval healing of fractures involving the sixth, seventh, and 8 lateral left ribs. DISH within the mid to lower thoracic spine. Inferior endplate Schmorl's node of T9, unchanged. IMPRESSION: 1. OLD HEALED FRACTURES OF THE RIGHT LATERAL EIGHTH, NINTH, AND 10TH RIBS (PRESENT BACK ON 03/22/2019). INTERVAL HEALING CHANGE OF THE LEFT LATERAL SIXTH, SEVENTH, AND EIGHTH RIBS. NO ACUTE RIB FRACTURE S EEN. 2. A 6 MM RIGHT MID LUNG PULMONARY NODULE IS MINIMALLY LARGER COMPARED TO 4 MM ON 03/22/2019. CONTINUED FOLLOW-UP RECOMMENDED IN 6-12 MONTHS. 3. CAD.
== END 2020-01-02 11:36 | disposition home or self-care (01) ==
LOC: EC 10:11
DX: R07.81 Pleurodynia (principal); I25.10 Atherosclerotic heart disease of native coronary artery without angina pectoris; I10 Essential (primary) hypertension; E11.9 Type 2 diabetes mellitus without complications; E78.5 Hyperlipidemia, unspecified; E07.9 Disorder of thyroid, unspecified; F41.9 Anxiety disorder, unspecified; Z79.890 Hormone replacement therapy; Z79.899 Other long term (current) drug therapy; Z91.041 Radiographic dye allergy status; Z79.82 Long term (current) use of aspirin; Z79.84 Long term (current) use of oral hypoglycemic drugs; Z95.5 Presence of coronary angioplasty implant and graft; W18.09XA Striking against other object with subsequent fall, initial encounter
CPT/HCPCS: 71250; 99283; 96372; J1885

== ENCOUNTER 2020-04-18 09:57 | Emergency (ER) | payer MEDICARE, BC ==
[2020-04-18 10:02] VITALS: BP 164/79; PULSE 62; RESP 18; TEMP 97.5
--- NOTE | 2020-04-18 10:20 | ED ---
Upper Extremity HPI - General Chief Complaint: Extremity Injury, Upper Stated Complaint: fall/wrist pain Time Seen by Provider: 04/18/20 10:04 Source: patient Mode of arrival: ambulatory Limitations: no limitations - History of Present Illness Initial Comments: Patient is a 79-year-old female presenting to emergency Department with complaints of right wrist pain. Patient states she walked out to the mailbox last night to get her mail when she slipped on ice and fell. Patient states she landed mostly on her right wrist and right arm. She states she did hit her head a little bit but she did not lose consciousness. She is not on blood thinners. She does have some little bit of right sided neck pain, she states it feels like her muscles are sore. She denies any new numbness and tingling into her upper extremities, she denies having a headache, no blurry vision, no nausea or vomiting. She states her main complaint is her right wrist pain. She states the swelling is getting worse and she is unable to use it. She denies any previous injuries or surgeries to her right wrist. She has no further complaints at this time. Upon arrival to the ER, her vital signs are stable. - Related Data Home Medications Medication Instructions Recorded Confirmed Aspirin 81 mg PO HS 03/28/14 04/18/20 Atorvastatin [Lipitor] 40 mg PO HS 03/28/14 04/18/20 Cholecalciferol [Vitamin D3 (25 125 mcg PO DAILY 03/28/14 04/18/20 Mcg = 1000 Iu)] Omeprazole [PriLOSEC] 20 mg PO DAILY 03/28/14 04/18/20 Alendronate Sodium [Fosamax] 70 mg PO CORDOVA 03/19/17 04/18/20 Meclizine [Antivert] 25 mg PO TID 03/19/17 04/18/20 [place]-3 Fatty Acids [[place]-3] 1,000 mg PO BID 03/19/17 04/18/20 Chloride Silver 1 tbsp PO BID 11/11/18 04/18/20 [place] 1 tsp PO DAILY 11/11/18 04/18/20 Vitamin B Complex 1 cap PO DAILY 11/11/18 04/18/20 metFORMIN HCL [Glucophage] 500 mg PO TID 11/11/18 04/18/20 Losartan Potassium 100 mg PO DAILY 03/22/19 04/18/20 Levothyroxine Sodium 150 mcg PO DAILY 05/18/19 04/18/20 Potassium Gluconate 99 mg PO DAILY 05/18/19 04/18/20 Triamterene-Hctz 37.5-25Mg 1 cap PO DAILY 04/18/20 04/18/20 [Dyazide 37.5-25 Capsule] amLODIPine [Norvasc] 2.5 mg PO DAILY 04/18/20 04/18/20 Allergies Allergy/AdvReac Type Severity Reaction Status Date / Time Iodinated Contrast Media Allergy Intermediate Rash/Hives Verified 04/18/20 10:58 [Iodinated Contrast Media - IV Dye] Review of Systems ROS Statement: Those systems with pertinent positive or pertinent negative responses have been documented in the HPI. ROS Other: All systems not noted in ROS Statement are negative. 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 History of Any Multi-Drug Resistant Organisms: None Reported Past Surgical History: Cholecystectomy, Heart Catheterization With Stent, Hernia Repair, Hysterectomy Additional Past Surgical History / Comment(s): , BROKEN RIBS IN THE PAST 2 STENTS MAYBE 3-4 YRS AGO, Past Anesthesia/Blood Transfusion Reactions: No Reported Reaction Date of Last Stent Placement:: 04/07/2013 Past Psychological History: Anxiety Smoking Status: Former smoker Past Alcohol Use History: None Reported Past Drug Use History: None Reported - Past Family History Mother Family Medical History: No Reported History Additional Family Medical History / Comment(s): DEMENTIA Father Family Medical History: No Reported History Additional Family Medical History / Comment(s): OLD AGE General Exam - General Exam Comments Initial Comments: GENERAL: Patient is well-developed and well-nourished. Patient is nontoxic and in no acute distress. HEAD: Atraumatic, normocephalic. There are no hematomas, no signs of basal skull fracture. EYES: Pupils equal round and reactive to light, extraocular movements intact, sclera anicteric, conjunctiva are normal. Eyelids were unremarkable. ENT: TMs normal, nares patent, oropharynx clear without exudates. Moist mucous membranes. NECK: Normal range of motion, supple without lymphadenopathy or JVD. There is no midline tenderness. Patient does have some very mild soreness along the right upper trapezius muscle. LUNGS: Unlabored respirations. Breath sounds clear to auscultation bilaterally and equal. No wheezes rales or rhonchi. HEART: Regular rate and rhythm without murmurs, rubs or gallops. ABDOMEN: Soft, nontender, normoactive bowel sounds. No guarding, no rebound. No masses appreciated. : Deferred MUSCULOSKELETAL: The patient has pain and swelling along the right wrist, she is unable to supinate the wrist without significant pain. She is able to wiggle all of her fingers, her pulses are equal and bilateral. No pain of the right elbow or right upper arm. No clubbing or cyanosis. NEUROLOGICAL: Patient is alert and oriented x 3. Motor and sensory are also intact. Cranial nerves II through XII grossly intact. Symmetrical smile. Normal speech, normal gait. PSYCH: Normal mood, normal affect. SKIN: Warm, Dry, normal turgor, no rashes or lesions noted. Limitations: no limitations Course Vital Signs 04/18/20 09:58 Temperature 97.5 F L Pulse Rate 62 Respiratory 18 Rate Blood Pressure 164/79 O2 Sat by Pulse 97 Oximetry Procedures - Orthopedic Splinting/Casting Injury #1 Side: right Upper Extremity Injury Location: short arm, wrist Upper Extremity Immobilizer: sling/shoulder immobilizer, posterior splint, Favian wrap, synthetic pre-padded splint Medical Decision Making - Medical Decision Making Patient is a 79-year-old female here for right wrist pain after she fell after she slipped on ice last night. She does have significant pain and swelling along the right wrist, increased pain with supination. X-rays reveal a distal comminuted intra-articular right radial fracture. There is also some irregularity to the ulnar styloid, possible fracture there as well. Patient was placed in a posterior splint, I did attempt some mild traction to reduce the radial head. Patient tolerated well. Patient will be given a sling for comfort as well. I will give her start pack of tramadol for severe pain, she also tried Motrin and Tylenol for discomfort first. She has seen Dr. Makim in the past, I will give referral to him for follow-up. Patient is stable for discharge. Patient is in agreement with this plan of care. Return parameters were discussed with the patient and they verbalized understanding. Case discussed with Dr. Garcia. Disposition Clinical Impression: Closed fracture of right distal radius, Fall Disposition: HOME SELF-CARE Condition: Stable Instructions (If sedation given, give patient instructions): Wrist Fracture in Adults (ED) Additional Instructions: Please return to the Emergency Department if symptoms worsen or any other concerns. Keep splint in place until follow-up with orthopedics. May use sling for comfort at times. Please alternate between Tylenol and Motrin for pain control, may take tramadol for more severe pain. May also apply ice to the wrist. Is patient prescribed a controlled substance at d/c from ED?: No Referrals: Chad Jean DO [Primary Care Provider] - 1-2 days Simón Yuan MD [STAFF PHYSICIAN] - 1-2 days
--- NOTE | 2020-04-18 11:03 | XR ---
Right forearm HISTORY: Trauma and pain 2 views the right forearm correlated to right wrist same date Patient's distal radial fracture, ulnar styloid fracture noted. There is soft tissue swelling. No dis location. IMPRESSION: Distal radial fracture, ulnar styloid fracture.
--- NOTE | 2020-04-18 11:03 | XR ---
Right wrist HISTORY: Trauma and pain, swelling 4 views the right wrist There is a distal comminuted intra-articular metaphyseal right radial fracture. Bone mineralization i s reduced. There is soft tissue swelling. Irregularity also noted at the ulnar styloid IMPRESSION: Distal radial fracture. Correlate for possible ulnar styloid fracture.
[2020-04-18] MEDS ORDERED: traMADol 50 MG STARTER PACK 3 TAB BTL PO STA (11:21)
== END 2020-04-18 11:45 | disposition home or self-care (01) ==
LOC: EC 09:57
DX: S52.501A Unspecified fracture of the lower end of right radius, initial encounter for closed fracture (principal); S52.611A Displaced fracture of right ulna styloid process, initial encounter for closed fracture; I25.10 Atherosclerotic heart disease of native coronary artery without angina pectoris; E11.9 Type 2 diabetes mellitus without complications; I10 Essential (primary) hypertension; E78.5 Hyperlipidemia, unspecified; F03.90 Unspecified dementia, unspecified severity, without behavioral disturbance, psychotic disturbance, mood disturbance, and anxiety; Z79.82 Long term (current) use of aspirin; Z79.899 Other long term (current) drug therapy; Z79.84 Long term (current) use of oral hypoglycemic drugs; Z91.041 Radiographic dye allergy status; Z87.891 Personal history of nicotine dependence; Z95.5 Presence of coronary angioplasty implant and graft; W00.0XXA Fall on same level due to ice and snow, initial encounter
CPT/HCPCS: 29125; 99283

== ENCOUNTER 2020-06-07 10:52 | Emergency (ER) | payer MEDICARE, BC ==
--- NOTE | 2020-06-07 11:29 | ED ---
Fall HPI - General Source: patient Mode of arrival: wheelchair Limitations: no limitations <Axel Mina - Last Filed: 06/07/20 11:28> <Shell Bhardwaj - Last Filed: 06/07/20 13:35> - General Chief Complaint: Fall Stated Complaint: fall/rib pain Time Seen by Provider: 06/07/20 11:24 - History of Present Illness Initial Comments: 79-year-old female presented to the emergency Department with chief complaint of slip and fall. Patient states she slipped on a tile. Patient went on the left-sided ribs complaining worsening pain today. Patient has pain with deep inspiration or movement no head injury no other complaints. (Axel Mina) Patient is a 88-year-old female presenting to the emergency department after she slipped and fell yesterday hitting of the left side of her ribs on the side of the bathtub. She denies hitting her head, no other injuries from this fall. She states today she's had continued pain and pain when she takes a deep breath so she wanted to be evaluated. Denies any fevers or chills. No further complaints at this time. (Shell Bhardwaj) - Related Data Home Medications Medication Instructions Recorded Confirmed Aspirin 81 mg PO HS 03/28/14 04/18/20 Atorvastatin [Lipitor] 40 mg PO HS 03/28/14 04/18/20 Cholecalciferol [Vitamin D3 (25 125 mcg PO DAILY 03/28/14 04/18/20 Mcg = 1000 Iu)] Omeprazole [PriLOSEC] 20 mg PO DAILY 03/28/14 04/18/20 Alendronate Sodium [Fosamax] 70 mg PO CORDOVA 03/19/17 04/18/20 Meclizine [Antivert] 25 mg PO TID 03/19/17 04/18/20 [place]-3 Fatty Acids [[place]-3] 1,000 mg PO BID 03/19/17 04/18/20 Chloride Silver 1 tbsp PO BID 11/11/18 04/18/20 [place] 1 tsp PO DAILY 11/11/18 04/18/20 Vitamin B Complex 1 cap PO DAILY 11/11/18 04/18/20 metFORMIN HCL [Glucophage] 500 mg PO TID 11/11/18 04/18/20 Losartan Potassium 100 mg PO DAILY 03/22/19 04/18/20 Levothyroxine Sodium 150 mcg PO DAILY 05/18/19 04/18/20 Potassium Gluconate 99 mg PO DAILY 05/18/19 04/18/20 Triamterene-Hctz 37.5-25Mg 1 cap PO DAILY 04/18/20 04/18/20 [Dyazide 37.5-25 Capsule] amLODIPine [Norvasc] 2.5 mg PO DAILY 04/18/20 04/18/20 Allergies Allergy/AdvReac Type Severity Reaction Status Date / Time Iodinated Contrast Media Allergy Intermediate Rash/Hives Verified 06/07/20 11:25 [Iodinated Contrast Media - IV Dye] Review of Systems ROS Other: All systems not noted in ROS Statement are negative. <Axel Mina - Last Filed: 06/07/20 11:28> ROS Other: All systems not noted in ROS Statement are negative. <Shell Bhardwaj - Last Filed: 06/07/20 13:35> ROS Statement: Those systems with pertinent positive or pertinent negative responses have been documented in the HPI. 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 History of Any Multi-Drug Resistant Organisms: None Reported Past Surgical History: Cholecystectomy, Heart Catheterization With Stent, Hernia Repair, Hysterectomy Additional Past Surgical History / Comment(s): , BROKEN RIBS IN THE PAST 2 STENTS MAYBE 3-4 YRS AGO, Past Anesthesia/Blood Transfusion Reactions: No Reported Reaction Date of Last Stent Placement:: 04/07/2013 Past Psychological History: Anxiety Smoking Status: Former smoker Past Alcohol Use History: None Reported Past Drug Use History: None Reported - Past Family History Mother Family Medical History: No Reported History Additional Family Medical History / Comment(s): DEMENTIA Father Family Medical History: No Reported History Additional Family Medical History / Comment(s): OLD AGE <Axel Mina - Last Filed: 06/07/20 11:28> General Exam Limitations: no limitations Respiratory exam: Present: chest wall tenderness (Moderate left-sided rib tenderness) <KeeleyAxel M - Last Filed: 06/07/20 11:28> <Shell Bhardwaj - Last Filed: 06/07/20 13:35> - General Exam Comments Initial Comments: GENERAL: Patient is well-developed and well-nourished. Patient is nontoxic and in no acute distress. HEAD: Atraumatic, normocephalic. EYES: Pupils equal round and reactive to light, extraocular movements intact, sclera anicteric, conjunctiva are normal. Eyelids were unremarkable. ENT: TMs normal, nares patent, oropharynx clear without exudates. Moist mucous membranes. NECK: Normal range of motion, supple without lymphadenopathy or JVD. LUNGS: Unlabored respirations. Breath sounds clear to auscultation bilaterally and equal. No wheezes rales or rhonchi. HEART: Regular rate and rhythm without murmurs, rubs or gallops. ABDOMEN: Soft, nontender, normoactive bowel sounds. No guarding, no rebound. No masses appreciated. : Deferred MUSCULOSKELETAL: Normal extremities with adequate strength and normal range of motion, no pitting or edema. No clubbing or cyanosis. Patient has pain with palpation of the anterior lateral left side of the ribs, along ribs 8 and 9. No deformity or bruising seen or felt. NEUROLOGICAL: Patient is alert and oriented x 3. Motor and sensory are also intact. Cranial nerves II through XII grossly intact. Symmetrical smile. Normal speech, normal gait. PSYCH: Normal mood, normal affect. SKIN: Warm, Dry, normal turgor, no rashes or lesions noted. (Shell Bhardwaj) Course Vital Signs 06/07/20 11:20 Temperature 98.3 F Pulse Rate 79 Respiratory 20 Rate Blood Pressure 145/84 O2 Sat by Pulse 98 Oximetry Medical Decision Making <Shell Bhardwaj - Last Filed: 06/07/20 13:35> - Medical Decision Making Patient is a 79-year-old female here after she slipped and fell and hit left side of her ribs on the bathtub yesterday. X-rays reveal no acute fracture dislocation of the ribs, no other abnormalities seen. I discussed with patient this is a rib contusion. Recommended icing to the area, Tylenol or Motrin for any discomfort. She states she does have tramadol at home that was she will also take as well. We also discussed deep breathing to help prevent pneumonia. Patient is stable for discharge. Patient is in agreement with this plan of care. Return parameters were discussed with the patient and they verbalized understanding. Case discussed with Dr. Hernandez. (Shell Bhardwaj) Disposition <Axel Mina - Last Filed: 06/07/20 11:28> Is patient prescribed a controlled substance at d/c from ED?: No Time of Disposition: 13:35 <Shell Bhardwaj - Last Filed: 06/07/20 13:35> Clinical Impression: Contusion of rib on left side, Fall Disposition: HOME SELF-CARE Condition: Stable Instructions (If sedation given, give patient instructions): Rib Contusion (ED) Additional Instructions: Please return to the Emergency Department if symptoms worsen or any other concerns. May apply ice to the area, heat over the next few days. Recommend alternating Tylenol and Motrin for discomfort. Please practice deep breathing exercises as we discussed to help prevent pneumonia. Follow-up with your PCP. Referrals: Chad Jean DO [Primary Care Provider] - 1-2 days
--- NOTE | 2020-06-07 13:26 | XR ---
EXAMINATION TYPE: XR ribs LT w pa chest xray DATE OF EXAM: 06/07/2020 COMPARISON: NONE HISTORY: Pain TECHNIQUE: Single view of the chest 4 views of the ribs are submitted. FINDINGS: The lungs are clear. Scattered senescent parenchymal changes noted. No Evidence for pneumo thorax. Chronic left rib deformity suggested. No evidence for focal contusion. Mediastinal structure s are midline. Evaluation of the ribs fails to demonstrate evidence for displaced rib fracture or se condary sign of rib fracture. IMPRESSION: Negative study
[2020-06-07 13:42] VITALS: BP 159/86; PULSE 63; RESP 18; TEMP 97.8
== END 2020-06-07 13:40 | disposition home or self-care (01) ==
LOC: EC 10:52
DX: S20.212A Contusion of left front wall of thorax, initial encounter (principal); I25.10 Atherosclerotic heart disease of native coronary artery without angina pectoris; E78.5 Hyperlipidemia, unspecified; K21.9 Gastro-esophageal reflux disease without esophagitis; M19.90 Unspecified osteoarthritis, unspecified site; F03.90 Unspecified dementia, unspecified severity, without behavioral disturbance, psychotic disturbance, mood disturbance, and anxiety; F41.9 Anxiety disorder, unspecified; E11.9 Type 2 diabetes mellitus without complications; I10 Essential (primary) hypertension; Z79.82 Long term (current) use of aspirin; Z79.84 Long term (current) use of oral hypoglycemic drugs; Z87.891 Personal history of nicotine dependence; W01.198A Fall on same level from slipping, tripping and stumbling with subsequent striking against other object, initial encounter
CPT/HCPCS: 99284

== ENCOUNTER → 2020-10-31 | Outpatient (CLI) | payer MEDICARE, BC ==
--- NOTE | 2020-11-01 10:33 | MM ---
Reason for exam: screening (asymptomatic). Last mammogram was performed 1 year ago. History: Patient is postmenopausal. Physical Findings: A clinical breast exam by your physician is recommended on an annual basis and results should be correlated with mammographic findings. MG 3D Screening Mammo W/Cad Bilateral CC and MLO view(s) were taken. Prior study comparison: October 21, 2019, bilateral MG 3d screening mammo w/cad. September 14, 2018, bilateral MG 3d screening mammo w/cad. The breast tissue is heterogeneously dense. This may lower the sensitivity of mammography. There is no discrete abnormality. No significant changes when compared with prior studies. ASSESSMENT: Negative, BI-RAD 1 RECOMMENDATION: Routine screening mammogram of both breasts in 1 year.
== END | disposition home or self-care (01) ==
LOC: RADMAMWWP 10:02
PROVIDERS: ATTEND Family Medicine
DX: Z12.31 Encounter for screening mammogram for malignant neoplasm of breast (principal)
CPT/HCPCS: 77063; 77067

== ENCOUNTER 2021-09-22 17:02 | Emergency (ER) | payer MEDICARE, BC ==
[2021-09-22 17:08] VITALS: BP 124/81; PULSE 78; RESP 20; TEMP 98.1
--- NOTE | 2021-09-22 17:35 | ED ---
Fall HPI - General Chief Complaint: Fall Stated Complaint: Fall, Right Side Rib Injury Time Seen by Provider: 09/22/21 17:26 Source: patient, RN notes reviewed Mode of arrival: ambulatory - History of Present Illness Initial Comments: This is a pleasant 80-year-old female presents to emergency room complaining of right rib pain. Patient states yesterday she was working out in the yard and ended up seeing a snake. Patient states she was bending over. Patient states when this happens she tried to make a quick getaway and ended up falling onto her right side. Patient complain pain to the right ribs was exacerbated by movement and palpation. Alleviated by rest. There is no head or neck injury. This occurred at 3 PM yesterday. Patient is not on blood thinners. Denies any shortness of breath. No abdominal pain. Injuries. No headache, no fever or chills, no changes in vision or hearing, no sore throat or difficulty with speech, no neck pain, no chest pain or shortness of breath, no abdominal pain, no nausea or vomiting, no changes in urination or bowel movements, no numbness or tingling, no extremity pain, no skin rashes or lesions. MD Complaint: fall - Related Data Home Medications Medication Instructions Recorded Confirmed Aspirin 81 mg PO HS 03/28/14 04/18/20 Atorvastatin [Lipitor] 40 mg PO HS 03/28/14 04/18/20 Cholecalciferol [Vitamin D3 (25 125 mcg PO DAILY 03/28/14 04/18/20 Mcg = 1000 Iu)] Omeprazole [PriLOSEC] 20 mg PO DAILY 03/28/14 04/18/20 Alendronate Sodium [Fosamax] 70 mg PO CORDOVA 03/19/17 04/18/20 Meclizine [Antivert] 25 mg PO TID 03/19/17 04/18/20 [place]-3 Fatty Acids [[place]-3] 1,000 mg PO BID 03/19/17 04/18/20 Chloride Silver 1 tbsp PO BID 11/11/18 04/18/20 [place] 1 tsp PO DAILY 11/11/18 04/18/20 Vitamin B Complex 1 cap PO DAILY 11/11/18 04/18/20 metFORMIN HCL [Glucophage] 500 mg PO TID 11/11/18 04/18/20 Losartan Potassium 100 mg PO DAILY 03/22/19 04/18/20 Levothyroxine Sodium 150 mcg PO DAILY 05/18/19 04/18/20 Potassium Gluconate [Potassium 99 mg PO DAILY 05/18/19 04/18/20 Gluconate ER] Triamterene-Hctz 37.5-25Mg 1 cap PO DAILY 04/18/20 04/18/20 [Dyazide 37.5-25 Capsule] amLODIPine [Norvasc] 2.5 mg PO DAILY 04/18/20 04/18/20 Allergies Allergy/AdvReac Type Severity Reaction Status Date / Time Iodinated Contrast Media Allergy Intermediate Rash/Hives Verified 09/22/21 17:08 [Iodinated Contrast Media - IV Dye] Review of Systems ROS Statement: Those systems with pertinent positive or pertinent negative responses have been documented in the HPI. ROS Other: All systems not noted in ROS Statement are negative. 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 History of Any Multi-Drug Resistant Organisms: None Reported Past Surgical History: Cholecystectomy, Heart Catheterization With Stent, Hernia Repair, Hysterectomy Additional Past Surgical History / Comment(s): , BROKEN RIBS IN THE PAST 2 STENTS MAYBE 3-4 YRS AGO, Past Anesthesia/Blood Transfusion Reactions: No Reported Reaction Date of Last Stent Placement:: 04/07/2013 Past Psychological History: Anxiety Smoking Status: Former smoker Past Alcohol Use History: None Reported Past Drug Use History: None Reported - Past Family History Mother Family Medical History: No Reported History Additional Family Medical History / Comment(s): DEMENTIA Father Family Medical History: No Reported History Additional Family Medical History / Comment(s): OLD AGE General Exam Limitations: no limitations General appearance: alert, in no apparent distress Head exam: Present: atraumatic, normocephalic, normal inspection Eye exam: Present: normal appearance, PERRL, EOMI. Absent: scleral icterus, conjunctival injection, periorbital swelling ENT exam: Present: normal exam, mucous membranes moist. Absent: mucous membranes dry Neck exam: Present: normal inspection, full ROM. Absent: tenderness, meningismus, lymphadenopathy Respiratory exam: Present: normal lung sounds bilaterally, chest wall tenderness (Patient has tenderness over the right anterolateral ribs. No break in skin integrity. No crepitus. No ecchymosis.). Absent: respiratory distress, wheezes, rales, rhonchi, stridor, accessory muscle use, decreased breath sounds, prolonged expiratory Cardiovascular Exam: Present: regular rate, normal rhythm, normal heart sounds. Absent: systolic murmur, diastolic murmur, rubs, gallop, clicks GI/Abdominal exam: Present: soft, normal bowel sounds. Absent: distended, tenderness, guarding, rebound, rigid Extremities exam: Present: normal inspection, full ROM, normal capillary refill. Absent: tenderness, pedal edema, joint swelling, calf tenderness Back exam: Present: normal inspection Neurological exam: Present: alert, oriented X3, CN II-XII intact, normal gait. Absent: altered, abnormal gait, motor sensory deficit Psychiatric exam: Present: normal affect, normal mood Skin exam: Present: warm, dry, intact, normal color. Absent: rash Course Vital Signs 09/22/21 17:05 Temperature 98.1 F Pulse Rate 78 Respiratory 20 Rate Blood Pressure 124/81 O2 Sat by Pulse 97 Oximetry - Reevaluation(s) Reevaluation #1: 09/22/21 18:50 Medical record is reviewed Symptoms unchanged Patient is informed of results and questions answered Patient in no distress Medical Decision Making - Medical Decision Making Isolated injury to the right anterior/lower ribs. No other injuries noted. Patient is neurologically intact otherwise. Cranial nerves II through XII are intact. Alert and oriented 4. Patient has no spinal tenderness. No evidence of other orthopedic injury. No abdominal tenderness. Vital signs noted and stable. Patient has been using bare aspirin at home. No other pain medicat ions. No evidence of acute fractures on right rib and chest x-ray. Study read by radiology as well. I did review these films myself. We'll have the patient treat conservatively. Discussed possible cartilaginous injury. Discussed possible occult fracture. Discussed conservative therapy. Patient shows no evidence of respiratory distress. No evidence of other injury. Patient was told to return to the ER for any signs or symptoms worsen. Told to return immediately if any other problems arise. All questions answered. Treatment plan discussed. Patient in agreement Every effort has been made to ensure accuracy of this dictation. However, due to the limitations of electronic medical records and dictation devices, errors in charting still occur. [facility] Builder Dr. Bishop - Radiology Data Radiology results: report reviewed, image reviewed Disposition Clinical Impression: Contusion of rib on right side Disposition: HOME SELF-CARE Condition: Good Instructions (If sedation given, give patient instructions): Fall Prevention for Older Adults (ED), Rib Contusion (ED) Additional Instructions: Follow-up with your regular physician as directed. Return to the ER immediately if any symptoms worsen, new symptoms arise, or any other problems develop. Use [id number] acetaminophen for pain control. Is patient prescribed a controlled substance at d/c from ED?: No Referrals: Chad Jean DO [Primary Care Provider] - 09/24/21 Time of Disposition: 18:51
--- NOTE | 2021-09-22 18:47 | XR ---
EXAMINATION TYPE: XR ribs RT w pa chest xray DATE OF EXAM: 09/22/2021 COMPARISON: Chest x-ray 06/19/2021 HISTORY: Rib pain TECHNIQUE: 5 views FINDINGS: There is small linear density at the left lateral lung base. No pleural effusion or pneumot horax. Heart size is normal. No heart failure. There is osteopenia. The right ribs appear intact. IMPRESSION: No rib fracture seen. Minimal scarring or subsegmental atelectasis left lung base is new compared to old exam.
== END 2021-09-22 19:20 | disposition home or self-care (01) ==
LOC: EC 17:02
DX: S20.211A Contusion of right front wall of thorax, initial encounter (principal); E78.5 Hyperlipidemia, unspecified; I10 Essential (primary) hypertension; K21.9 Gastro-esophageal reflux disease without esophagitis; E11.9 Type 2 diabetes mellitus without complications; E07.9 Disorder of thyroid, unspecified; I25.10 Atherosclerotic heart disease of native coronary artery without angina pectoris; M19.90 Unspecified osteoarthritis, unspecified site; Z91.041 Radiographic dye allergy status; Z79.899 Other long term (current) drug therapy; Z79.890 Hormone replacement therapy; Z87.891 Personal history of nicotine dependence; Z79.84 Long term (current) use of oral hypoglycemic drugs; Z79.82 Long term (current) use of aspirin; W19.XXXA Unspecified fall, initial encounter
CPT/HCPCS: 99283

== ENCOUNTER → 2021-12-04 | Outpatient (CLI) | payer MEDICARE, BC ==
--- NOTE | 2021-12-04 13:07 | MR ---
EXAMINATION TYPE: MR brain and iac wo/w con DATE OF EXAM: 12/04/2021 COMPARISON: MRI internal auditory canal 09/26/2011, MR brain 04/03/2010, CT brain 03/22/2019 HISTORY: CVA, acoustic neuroma, dizziness, dysphagia, hearing loss, imbalance TECHNIQUE: Multiplanar, multisequence images of the brain and brainstem, internal auditory canals is performed w ithout and with IV contrast, utilizing 9 mL intravenous Gadavist . Small [id number] and high resol ution images obtained through the internal auditory canals FINDINGS: Diffusion weighted images demonstrate no evidence of a recent infarct or other diffusion ab normality. There is no extra-axial fluid collection. There has been some progression in the confluen t and scattered periventricular, pericallosal, subcortical hyperintensities on inversion recovery T2- weighted sequences The ventricular system and cisternal spaces are normal in size and appearance. Th e brain volume is age appropriate. Midline structures demonstrate normal morphology. The craniocervical junction appears within normal limits. Post contrast images demonstrate no abnormal enhancement. The dural venous sinuses appear pa tent. The visualized sinuses are remarkable for inflammatory change in ethmoid air cells, frontal sin us and the globes are intact. Internal auditory canals are unremarkable, there is no abnormal enhancement to suggest acoustic neuro ma, there is no cerebellopontine angle mass IMPRESSION: There has been progression in the abnormal white matter signal compared to prior MRIs. Fi ndings may be secondary to chronic small vessel ischemic changes. No cerebellopontine angle mass, no evident internal auditory canal mass
== END | disposition home or self-care (01) ==
LOC: RADMRIMAIN 09:12
PROVIDERS: ATTEND Psychiatry & Neurology Neurology
DX: I67.9 Cerebrovascular disease, unspecified (principal); R13.10 Dysphagia, unspecified; D33.3 Benign neoplasm of cranial nerves
CPT/HCPCS: 70553; A9585

== ENCOUNTER 2022-06-22 14:17 | Emergency (ER) | payer MEDICARE, BC ==
[2022-06-22 14:24] VITALS: BP 129/75; PULSE 70; RESP 20; TEMP 98.2
[2022-06-22] MEDS ORDERED: KETOROLAC 15 MG/ML 1 ML VIAL IM STA (15:00)
[2022-06-22] MEDS ORDERED: LIDOCAINE 5% PATCH TOPICAL STA (15:01)
--- NOTE | 2022-06-22 15:25 | XR ---
EXAMINATION TYPE: XR ribs LT DATE OF EXAM: 06/22/2022 CLINICAL HISTORY: Pain, Fall Four views of the ribs fail demonstrate evidence for acute displaced rib fracture or secondary sign o f rib fracture. There are also multiple chronic appearing left-sided rib deformities of left ribs 5 through 9. Visualized lungs are free of contusion or infiltrate. No evidence for pneumothorax. IMPRESSION: No acute displaced rib fractures seen. ICD 10 NO FRACTURE, INITIAL EVALUATION
--- NOTE | 2022-06-22 15:33 | ED ---
General Adult HPI - General Chief complaint: Recheck/Abnormal Lab/Rx Stated complaint: rib pain Time Seen by Provider: 06/22/22 14:54 Source: patient Mode of arrival: ambulatory Limitations: no limitations - History of Present Illness Initial comments: Patient is an 81-year-old female who presents to the emergency department with a chief complaint of rib pain. Patient states she was leaning over a chest freezer to grab meat when it pushed on her left ribs causing mild pain. Pain worse with testing of the torso. Patient states she has had left rib fractures in the past she wanted to make sure she did not fracture a rib today. She denies chest pain and shortness of breath. No abdominal pain, nausea, vomiting. - Related Data Home Medications Medication Instructions Recorded Confirmed Aspirin 81 mg PO HS 03/28/14 04/18/20 Atorvastatin [Lipitor] 40 mg PO HS 03/28/14 04/18/20 Cholecalciferol [Vitamin D3 (25 125 mcg PO DAILY 03/28/14 04/18/20 Mcg = 1000 Iu)] Omeprazole [PriLOSEC] 20 mg PO DAILY 03/28/14 04/18/20 Alendronate Sodium [Fosamax] 70 mg PO CORDOVA 03/19/17 04/18/20 Meclizine [Antivert] 25 mg PO TID 03/19/17 04/18/20 [place]-3 Fatty Acids [[place]-3] 1,000 mg PO BID 03/19/17 04/18/20 Chloride Silver 1 tbsp PO BID 11/11/18 04/18/20 [place] 1 tsp PO DAILY 11/11/18 04/18/20 Vitamin B Complex 1 cap PO DAILY 11/11/18 04/18/20 metFORMIN HCL [Glucophage] 500 mg PO TID 11/11/18 04/18/20 Losartan Potassium 100 mg PO DAILY 03/22/19 04/18/20 Levothyroxine Sodium 150 mcg PO DAILY 05/18/19 04/18/20 Potassium Gluconate [Potassium 99 mg PO DAILY 05/18/19 04/18/20 Gluconate ER] Triamterene-Hctz 37.5-25Mg 1 cap PO DAILY 04/18/20 04/18/20 [Dyazide 37.5-25 Capsule] amLODIPine [Norvasc] 2.5 mg PO DAILY 04/18/20 04/18/20 Previous Rx's Medication Instructions Recorded Ibuprofen [Motrin] 800 mg PO Q6HR #12 tab 06/22/22 Lidocaine 5% Patch [Lidoderm 5% 1 patch TOPICAL DAILY PRN #7 patch 06/22/22 Patch] Allergies Allergy/AdvReac Type Severity Reaction Status Date / Time Iodinated Contrast Media Allergy Intermediate Rash/Hives Verified 06/22/22 14:24 [Iodinated Contrast Media - IV Dye] Review of Systems ROS Statement: Those systems with pertinent positive or pertinent negative responses have been documented in the HPI. ROS Other: All systems not noted in ROS Statement are negative. 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 History of Any Multi-Drug Resistant Organisms: None Reported Past Surgical History: Cholecystectomy, Heart Catheterization With Stent, Hernia Repair, Hysterectomy Additional Past Surgical History / Comment(s): , BROKEN RIBS IN THE PAST 2 STENTS MAYBE 3-4 YRS AGO, Past Anesthesia/Blood Transfusion Reactions: No Reported Reaction Date of Last Stent Placement:: 04/07/2013 Past Psychological History: Anxiety Smoking Status: Former smoker Past Alcohol Use History: None Reported Past Drug Use History: None Reported - Past Family History Mother Family Medical History: No Reported History Additional Family Medical History / Comment(s): DEMENTIA Father Family Medical History: No Reported History Additional Family Medical History / Comment(s): OLD AGE General Exam Limitations: no limitations General appearance: alert, in no apparent distress Head exam: Present: atraumatic, normocephalic, normal inspection Respiratory exam: Present: normal lung sounds bilaterally, chest wall tenderness (left middle anterolateral middle ribs). Absent: respiratory distress, wheezes, rales, rhonchi, stridor, decreased breath sounds, prolonged expiratory Cardiovascular Exam: Present: regular rate, normal rhythm, normal heart sounds. Absent: systolic murmur, diastolic murmur, rubs, gallop, clicks GI/Abdominal exam: Present: soft, normal bowel sounds. Absent: distended, tenderness, guarding, rebound, rigid Neurological exam: Present: alert, oriented X3, CN II-XII intact Psychiatric exam: Present: normal affect, normal mood Skin exam: Present: warm, dry, intact, normal color. Absent: rash Course Vital Signs 06/22/22 14:22 Temperature 98.2 F Pulse Rate 70 Respiratory 20 Rate Blood Pressure 129/75 O2 Sat by Pulse 96 Oximetry Medical Decision Making - Medical Decision Making Was pt. sent in by a medical professional or institution (, PA, REVIEW SPECIALIST, urgent care, hospital, or retirement...) When possible be specific @ -[No] Did you speak to anyone other than the patient for history (EMS, parent, family, police, friend...)? What history was obtained from this source @ -[No] Did you review nursing and triage notes (agree or disagree)? Why? @ -[I reviewed and agree with nursing and triage notes] Were old charts reviewed (outside hosp., previous admission, EMS record, old EKG, old radiological studies, urgent care reports/EKG's, retirement records)? Report findings @ -[No old charts were reviewed] Differential Diagnosis (chest pain, altered mental status, abdominal pain women, abdominal pain men, vaginal bleeding, weakness, fever, dyspnea, syncope, headache, dizziness, GI bleed, back pain, seizure, CVA, palpatations, mental health)? @ -Stable Angina, Unstable Angina, STEMI, NSTEMI Aortic Dissection, Pneumothorax, Musculoskeletal, Esophageal Spasm GERD, Cholecystitis, Pancreatitis, Zoster, this is not meant to be an all-inclusive list. EKG interpreted by me (3pts min.). @ -[As above] X-rays interpreted by me (1pt min.). @ -[None done] CT interpreted by me (1pt min.). @ -[None done] U/S interpreted by me (1pt. min.). @ -[None done] What testing was considered but not performed or refused? (CT, X-rays, U/S, labs)? Why? @ -[None] What meds were considered but not given or refused? Why? @ -[None] Did you discuss the management of the patient with other professionals (professionals i.e. , [facility]RIK, REVIEW SPECIALIST, lab, RT, psych nurse, social work specialist, lens inspector, teacher, public records officer, case manager specialist)? Give summary @ -[No] Was smoking cessation discussed for >3mins.? @ -[No] Was critical care preformed (if so, how long)? @ -[No] Were there social determinants of health that impacted care today? How? (Homelessness, low income, unemployed, alcoholism, drug addiction, transportat ion, low edu. Level, literacy, decrease access to med. care, long term, rehab)? @ -[No] Was there de-escalation of care discussed even if they declined (Discuss DNR or withdrawal of care, Hospice)? DNR status @ -[No] What co-morbidities impacted this encounter? (DM, HTN, Smoking, COPD, CAD, Cancer, CVA, ARF, Chemo, Hep., AIDS, mental health diagnosis, sleep apnea, morbid obesity)? @ -[None] Was patient admitted / discharged? Hospital course, mention meds given and route, prescriptions, significant lab abnormalities, going to OR and other pertinent info. @ -Patient presenting with rib pain. Clinical presentation consistent with musculoskeletal injury. No chest pain or shortness of breath. X-ray is negative for acute fracture. Patient treated in the emergency department with improvement of symptoms. She will be discharged with symptomatic management. Undiagnosed new problem with uncertain prognosis? @ -[No] Drug Therapy requiring intensive monitoring for toxicity (Heparin, Nitro, Insulin, Cardizem)? @ -[No] Were any procedures done? @ -[No] Diagnosis/symptom? @ - lleft rib pain Acute, Chronic, or Acute on Chronic? @ -acute Uncomplicated (without systemic symptoms) or Complicated (systemic symptoms)? @ -uncomplicated Side effects of treatment? @ -[No] Exacerbation, Progression, or Severe Exacerbation? @ -[No] Poses a threat to life or bodily function? How? (Chest pain, [place], [place], pneumonia, PE, COPD, DKA, ARF, appy, cholecystitis, CVA, Diverticulitis, Homicidal, Suicidal, threat to staff... and all critical care pts) @ -[No] Dr. Leiva is my attending Disposition Clinical Impression: Rib pain on left side Disposition: HOME SELF-CARE Condition: Good Instructions (If sedation given, give patient instructions): Rib Contusion (ED) Additional Instructions: Take medication as directed. Please follow-up with your primary care provider in 1-2 days. Return to the emergency department if you experience new, concerning, or worsening symptoms. Prescriptions: Lidocaine 5% Patch [Lidoderm 5% Patch] 1 patch TOPICAL DAILY PRN #7 patch PRN Reason: Pain Ibuprofen [Motrin] 800 mg PO Q6HR #12 tab Is patient prescribed a controlled substance at d/c from ED?: No Referrals: Chad Jean DO [Primary Care Provider] - 1-2 days
== END 2022-06-22 15:46 | disposition home or self-care (01) ==
LOC: EC 14:17
DX: R07.81 Pleurodynia (principal); E11.9 Type 2 diabetes mellitus without complications; I10 Essential (primary) hypertension; I25.10 Atherosclerotic heart disease of native coronary artery without angina pectoris; E78.5 Hyperlipidemia, unspecified; F03.90 Unspecified dementia, unspecified severity, without behavioral disturbance, psychotic disturbance, mood disturbance, and anxiety; K21.9 Gastro-esophageal reflux disease without esophagitis; M19.90 Unspecified osteoarthritis, unspecified site; E07.9 Disorder of thyroid, unspecified; M81.0 Age-related osteoporosis without current pathological fracture; Z79.82 Long term (current) use of aspirin; Z79.84 Long term (current) use of oral hypoglycemic drugs; Z79.899 Other long term (current) drug therapy; Z87.891 Personal history of nicotine dependence; Z79.890 Hormone replacement therapy
CPT/HCPCS: 71100; 99283; 96372; J1885

== ENCOUNTER 2022-10-23 06:58 | Day surgery (SDC) | payer MEDICARE, BC ==
[2022-10-23] MEDS ORDERED: LACTATED RINGERS 1,000 ML IV SCH (07:12)
[2022-10-23] MEDS ORDERED: LIDOCAINE 1% (10MG/ML) FOR IV START INTRADERMA PRN (07:12)
[2022-10-23 07:41] VITALS: TEMP 98.1
[2022-10-23 07:41] LABS: Glucose,Whole Blood 146 mg/dL (70-110)
[2022-10-23] MEDS ORDERED: PROPOFOL 10 MG/ML 20 ML VIAL IV ONE (07:56)
[2022-10-23] MEDS ORDERED: LIDOCAINE 2% INJ 20 MG/ML (2 ML VIAL) ONE (07:56)
--- NOTE | 2022-10-23 08:19 | P.PCN ---
Date of Procedure: 10/23/22 Procedure(s) Performed: BRIEF HISTORY: Patient is a 81-year-old, pleasant, white female scheduled for an upper endoscopy as a part of evaluation of progressive dysphagia to solids and liquids for the last several years duration. Her symptoms are gradually getting worse over the last 2 years.. PROCEDURE PERFORMED: Esophagogastroduodenoscopy with biopsy. PREOPERATIVE DIAGNOSIS: Dysphagia to solids and liquids of several years duration. IV sedation per anesthesia. PROCEDURE: After informed consent was obtained, the patient was brought into the endoscopy unit. IV sedation was administered by Anesthesia under continuous monitoring. Initially the Olympus GIF-140 video endoscope was inserted into the mouth. Esophagus intubated without any difficulty. It was gradually advanced into the stomach and duodenum and carefully examined. The bulb and the second part of the duodenum appeared normal. The scope at this time was withdrawn to the stomach, adequately insufflated with air, and upon careful examination, mucosa of the antrum had a 5 mm superficial antral ulcer status post biopsy. Mucosa of the, body, cardia and the fundus appeared normal. The scope was then withdrawn into the esophagus. The GE junction was located at 39 cm from the incisors. The esophagus appeared normal. There were no erosions or ulcerations seen . No esophageal stricture noted. The proximal cervical esophagus was carefully examined no obvious pathology identified. Multiple biopsies were done from the mid and distal esophagus to rule out years of age esophagitis and the patient tolerated the procedure well. IMPRESSION: 1. Normal-appearing esophagus with no evidence of esophagitis or esophageal stricture status post multiple biopsies to rule out eosinophilic esophagitis. 2. 5 mm antral ulcer and mild gastritis. RECOMMENDATIONS: The findings of this examination were discussed with the patient as well as a family.. She will be started on Prilosec 20 mg daily and was briefly educated about antireflux measures. If she has worsening symptoms she was advised to follow up in office for further evaluation.
[2022-10-23] MEDS ORDERED: IV FLUID CONTINUATION 1,000 ML IV ONE (08:23)
[2022-10-23] MEDS ORDERED: LACTATED RINGERS 1,000 ML IV ONE (08:25)
[2022-10-23 09:00] VITALS: RESP 20
[2022-10-23 09:25] VITALS: BP 144/81; PULSE 57
== END 2022-10-23 09:17 | disposition home or self-care (01) ==
LOC: ORWHC2ENDO 06:58
PROVIDERS: ATTEND Internal Medicine Gastroenterology
DX: K29.50 Unspecified chronic gastritis without bleeding (principal); K21.00 Gastro-esophageal reflux disease with esophagitis, without bleeding; I25.10 Atherosclerotic heart disease of native coronary artery without angina pectoris; I10 Essential (primary) hypertension; E78.5 Hyperlipidemia, unspecified; M19.90 Unspecified osteoarthritis, unspecified site; E11.9 Type 2 diabetes mellitus without complications; E07.9 Disorder of thyroid, unspecified; Z79.4 Long term (current) use of insulin; Z79.82 Long term (current) use of aspirin; Z87.891 Personal history of nicotine dependence; Z98.890 Other specified postprocedural states; Z79.899 Other long term (current) drug therapy
CPT/HCPCS: 88305; 88342; 43239; J2704; J2001

== ENCOUNTER → 2022-11-22 | Outpatient (CLI) | payer MEDICARE, BC ==
--- NOTE | 2022-11-25 07:52 | MM ---
Reason for Exam: Screening (asymptomatic). Last mammogram was performed 1 year(s) and 1 month(s) ago. Patient History: Menarche at age 13. First Full-Term at age 20. Left ovary removed at age 33. Right ovary removed at age 33. Hysterectomy at age 33. Postmenopausal. Patient has history of breast feeding. Risk Values: Maryam 5 year model risk: 1.2%. NCI Lifetime model risk: 1.8%. Prior Study Comparison: 10/21/2019 Bilateral Screening Mammogram, [facility]. 10/31/2020 Bilateral Screening Mammogram, [facility]. 11/02/2021 Bilateral MG 3D screening mammo w/cad, [facility]. Tissue Density: The breast tissue is heterogeneously dense. This may lower the sensitivity of mammography. Findings: Analyzed By CAD. There is no suspicious group of microcalcifications or new suspicious mass in either breast. Overall Assessment: Negative, BI-RAD 1 Management: Screening Mammogram of both breasts in 1 year. . Patient should continue monthly self-breast exams. A clinical breast exam by your physician is recommended on an annual basis. This exam should not preclude additional follow-up of suspicious palpable abnormalities. Note on Maryam scores and lifetime risk: 1. A Maryam score greater than 3% is considered moderate risk. If this is the case, consider specialist referral to assess eligibility for a risk reducing agent. 2. If overall lifetime risk for the development of breast cancer is 20% or higher, the patient may qualify for future screening with alternating mammogram and breast MRI. Electronically signed and approved by: Antonio Awan M.D. Radiologis
== END | disposition home or self-care (01) ==
LOC: RADMAMWWP 16:16
PROVIDERS: ATTEND Family Medicine
DX: Z12.31 Encounter for screening mammogram for malignant neoplasm of breast (principal); Z78.0 Asymptomatic menopausal state
CPT/HCPCS: 77063; 77067

== ENCOUNTER → 2023-10-27 | Outpatient (CLI) | payer MEDICARE, BC | END | disposition home or self-care (01) | LOC: LABPRL 14:30 | PROVIDERS: ATTEND Family Medicine | CPT/HCPCS: 80053; 80061; 83036; 84439; 84443; 85025 ==

== ENCOUNTER → 2023-12-10 | Outpatient (CLI) | payer MEDICARE, BC ==
--- NOTE | 2023-12-15 10:01 | MM ---
Reason for Exam: Screening (asymptomatic). Last screening mammogram was performed 12 month(s) ago. Patient History: Menarche at age 13. First Full-Term at age 20. Left ovary removed at age 33. Right ovary removed at age 33. Hysterectomy at age 33. Postmenopausal. Patient has history of breast feeding. Risk Values: Maryam 5 year model risk: 1.1%. NCI Lifetime model risk: 1.5%. Prior Study Comparison: 10/31/2020 Bilateral Screening Mammogram, [facility]. 11/02/2021 Bilateral MG 3D screening mammo w/cad, [facility]. 11/22/2022 Bilateral MG 3D screening mammo w/cad, [facility]. Tissue Density: There are scattered areas of fibroglandular density. Findings: Analyzed By CAD. Right breast: There is no suspicious group of microcalcifications or new suspicious mass. Left breast: There is no suspicious group of microcalcifications or new suspicious mass. Overall Assessment: Negative, BI-RAD 1 Management: Screening Mammogram of both breasts in [address] [facility] will attempt to contact patient to return for supplemental views and ultrasound if indicated. Patient should continue monthly self-breast exams. A clinical breast exam by your physician is recommended on an annual basis. This exam should not preclude additional follow-up of suspicious palpable abnormalities. Note on Maryam scores and lifetime risk: 1. A Maryam score greater than 3% is considered moderate risk. If this is the case, consider specialist referral to assess eligibility for a risk reducing agent. 2. If overall lifetime risk for the development of breast cancer is 20% or higher, the patient may qualify for future screening with alternating mammogram and breast MRI. [facility], , 12/15/2023 9:59 AM. Electronically signed and approved by: Tahir Gambino DO
== END | disposition home or self-care (01) ==
LOC: RADMAMWWP 09:11
PROVIDERS: ATTEND Family Medicine
DX: Z12.31 Encounter for screening mammogram for malignant neoplasm of breast
CPT/HCPCS: 77063; 77067

== ENCOUNTER 2024-04-02 12:44 | Emergency (ER) | payer MEDICARE, BC ==
[2024-04-02 12:56] VITALS: TEMP 98.5
[2024-04-02] MEDS: ONDANSETRON 4 MG/2 ML VIAL IVP STA (13:58)
--- NOTE | 2024-04-02 14:30 | CT ---
EXAMINATION TYPE: CT brain cspine wo con, CT facial bones wo con CT DLP: Combined DLP of 1002.3 mGycm, Automated exposure control for dose reduction was used. DATE OF EXAM: 04/02/2024 2:14 PM COMPARISON: MRI brain and IAC 12/04/2021, CT brain C-spine 03/22/2019 CLINICAL INDICATION:Female, 83 years old with history of fall; Fall today. No LOC. Large hematoma to right forehead and above right eye, pt is on ASA, not on thinners. TECHNIQUE: Brain: Multiple axial CT images of the brain were obtained without IV contrast. Cspine: Axial CT images from the skull base to the inferior aspect of T2 we obtained without intraven ous contrast. Coronal and sagittal reformatted images were also reviewed. Facial bones; axial CT images of the facial bones were obtained without contrast and soft tissue and bone windows. Coronal and sagittal reformatted images were also reviewed. FINDINGS: Brain: Extra-axial spaces: No definitive abnormal extra-axial fluid collections. Ventricular system: Within normal limits Cerebral parenchyma: There is acute hyperdense appearance of the right frontal lobe gyri. No acute ma ss effect. The samaniego-white junction is well differentiated. Scattered hypoattenuating areas are seen within the subcortical and periventricular white matter. Cerebellum: Unremarkable. Mass effect: No evidence of midline shift. Intracranial vasculature: Atherosclerotic calcifications of the intracranial vessels. Soft tissues: Large right frontal and periorbital soft tissue hematomas measuring up to 1.9 cm in thi ckness. Calvarium: No depressed skull fracture. Benign hyperostosis frontalis noted. Paranasal sinuses and mastoid air cells: Mastoid air cells are clear. Mild mucosal thickening of the anterior ethmoid sinus. Minimal mucosal thickening of the right maxillary sinus. Visualized orbits: Orbital contents are intact. Cervical spine: Fracture: None. Osseous structures: Multilevel degenerative disc disease changes with endplate spurring and disc oste ophyte complex's. Multilevel facet arthropathy. Vertebral alignment: Within normal limits. Spinal canal/Neural Foramina: Disc osteophyte complexes at C5-C6 and C6-C7 with at least mild spinal canal stenosis. Facet joint uncovertebral joint arthropathy scattered throughout the cervical spine w ith varying degrees of neural foraminal stenosis. Neck soft tissues: Prevertebral soft tissues are within normal limits. Other: The airway is patent. The lung apices are clear. Mild bilateral carotid bulb calcifications. R etropharyngeal course of the right common carotid artery. Facial Bones: There is no evidence of fracture, subluxation, or dislocation. Large right frontal and periorbital so ft tissue hematomas measuring up to 1.9 cm in thickness.The orbital contents are unremarkable. The te mporal-mandibular joints appear symmetric. Mastoid air cells are clear. Mild mucosal thickening of th e anterior ethmoid sinus. Minimal mucosal thickening of the right maxillary sinus. IMPRESSION: 1. Acute right frontal lobe cortical contusion. 2. Nonspecific white matter changes, likely secondary to chronic small vessel ischemic disease. 3. No acute facial bone fracture. 4. Acute large right frontal and periorbital soft tissue hematomas. 5. No evidence of cervical spine fracture. 6. Mild multilevel degenerative disc disease. Findings called to and discussed with Dr. Lyubov Leiva at 2:27 PM on 04/02/2024. [facility], , 04/02/2024 2:28 PM
--- NOTE | 2024-04-02 14:40 | XR ---
EXAMINATION TYPE: XR wrist complete RT DATE OF EXAM: 04/02/2024 2:15 PM COMPARISON: 04/18/2020 CLINICAL INDICATION: Female, 83 years old with history of fell; PHH, pain TECHNIQUE: XR wrist complete RT; examined in the Frontal, navicular, lateral, and oblique. FINDINGS: Sequela prior fracture with deformity to the radial head and ulnar styloid process. No acut e osseous pathology, joint dislocation, or joint effusion. No evidence of any soft tissue swelling i s seen. IMPRESSION: No acute osseous pathology. Remote appearing fractures as seen on 04/18/2020 [facility], , 04/02/2024 2:38 PM
[2024-04-02] MEDS ORDERED: DIPH,PERTUS(ACELL)TETVAC-LF 0.5 ML VIAL IM ONE (14:49)
[2024-04-02] MEDS: MORPHINE SULFATE 4 MG/ML SYRINGE IVP STA (14:51)
--- NOTE | 2024-04-02 14:57 | ED ---
General Adult HPI - General Chief complaint: Fall Stated complaint: Fall-R eye/arm injury Time Seen by Provider: 04/02/24 13:33 Source: patient, RN notes reviewed Mode of arrival: ambulatory Limitations: no limitations - History of Present Illness Initial comments: 83-year-old female presents to the emergency department for evaluation of fall with head injury. Patient reports that this occurred around 10-10:30 AM today. She states that she was tripped by her dog's leash causing her to fall forward and hit her face on concrete steps. She admits to taking a daily baby aspirin but no blood thinners. Denies loss of consciousness. Patient also admits to injuring her right wrist. - Related Data Home Medications Medication Instructions Recorded Confirmed Aspirin 81 mg PO BID 03/28/14 10/16/22 Atorvastatin [Lipitor] 40 mg PO HS 03/28/14 10/16/22 Omeprazole [PriLOSEC] 20 mg PO DAILY PRN 03/28/14 10/16/22 Alendronate Sodium [Fosamax] 70 mg PO CORDOVA 03/19/17 10/16/22 Meclizine [Antivert] 25 mg PO TID PRN 03/19/17 10/16/22 Chloride Silver 2 tbsp PO DAILY 11/11/18 10/16/22 Moringa 1 tsp PO DAILY 11/11/18 10/16/22 metFORMIN HCL [Glucophage] 500 mg PO BID 11/11/18 10/16/22 Losartan Potassium 100 mg PO DAILY 03/22/19 10/16/22 Levothyroxine Sodium 150 mcg PO DAILY 05/18/19 10/16/22 Triamterene-Hctz 37.5-25Mg 1 cap PO DAILY PRN 04/18/20 10/16/22 [Dyazide 37.5-25 Capsule] amLODIPine [Norvasc] 2.5 mg PO DAILY 04/18/20 10/16/22 Multivitamins, Thera [Multivitamin 1 tab PO DAILY 10/16/22 10/16/22 (formulary)] Allergies Allergy/AdvReac Type Severity Reaction Status Date / Time Iodinated Contrast Media Allergy Intermediate Rash/Hives Verified 04/02/24 12:56 [Iodinated Contrast Media - IV Dye] Review of Systems ROS Statement: Those systems with pertinent positive or pertinent negative responses have been documented in the HPI. ROS Other: All systems not noted in ROS Statement are negative. 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 History of Any Multi-Drug Resistant Organisms: None Reported Past Surgical History: Cholecystectomy, Heart Catheterization With Stent, Hernia Repair, Hysterectomy Additional Past Surgical History / Comment(s): , BROKEN RIBS IN THE PAST 2 STENTS MAYBE 3-4 YRS AGO, Past Anesthesia/Blood Transfusion Reactions: No Reported Reaction Date of Last Stent Placement:: 04/07/2013 Past Psychological History: Anxiety Smoking Status: Former smoker Past Alcohol Use History: None Reported Past Drug Use History: None Reported - Past Family History Mother Family Medical History: No Reported History Additional Family Medical History / Comment(s): DEMENTIA Father Family Medical History: No Reported History Additional Family Medical History / Comment(s): OLD AGE General Exam Limitations: no limitations General appearance: alert, in no apparent distress Head exam: Present: other (Large hematoma over the right frontal and periorbital region with significant swelling and e ecchymosis to the upper eyelid on the right) Eye exam: Present: normal appearance, PERRL, EOMI, periorbital swelling, periorbital tenderness ENT exam: Present: normal exam, mucous membranes moist Neck exam: Present: normal inspection, full ROM. Absent: tenderness, meningismus, lymphadenopathy Respiratory exam: Present: normal lung sounds bilaterally. Absent: respiratory distress, wheezes, rales, rhonchi, stridor Cardiovascular Exam: Present: regular rate, normal rhythm, normal heart sounds. Absent: systolic murmur, diastolic murmur, rubs, gallop, clicks Extremities exam: Present: normal inspection, full ROM, normal capillary refill. Absent: tenderness, pedal edema, joint swelling, calf tenderness Back exam: Present: normal inspection Neurological exam: Present: alert, oriented X3, CN II-XII intact, other (A&Ox4, GCS 15) Psychiatric exam: Present: normal affect, normal mood Skin exam: Present: warm, dry, abrasion (Abrasion over the right frontal forehead, large forehead hematoma and periorbital swelling and ecchymosis). Absent: intact, normal color Course Vital Signs 04/02/24 04/02/24 04/02/24 12:51 14:53 15:16 Temperature 98.5 F Pulse Rate 63 62 Respiratory 16 20 Rate Blood Pressure 183/111 197/78 186/77 O2 Sat by Pulse 98 98 Oximetry Medical Decision Making - Medical Decision Making Was pt. sent in by a medical professional or institution (, PA, DIVISION DIRECTOR, urgent care, hospital, or detention...) When possible be specific @ -No Did you speak to anyone other than the patient for history (EMS, parent, family, police, friend...)? What history was obtained from this source @ -Patient's family provided some history for this patient Did you review nursing and triage notes (agree or disagree)? Why? @ -I reviewed and agree with nursing and triage notes Were old charts reviewed (outside hosp., previous admission, EMS record, old EKG, old radiological studies, urgent care reports/EKG's, detention records)? Report findings @ -No old charts were reviewed Differential Diagnosis (chest pain, altered mental status, abdominal pain women, abdominal pain men, vaginal bleeding, weakness, fever, dyspnea, syncope, headache, dizziness, GI bleed, back pain, seizure, CVA, palpatations, mental health, musculoskeletal)? @ -Fall, head injury, intracranial hemorrhage, skull fracture, cervical spine fracture, this is not inclusive EKG interpreted by me (3pts min.). @ - X-rays interpreted by me (1pt min.). @ -X-ray of the right wrist shows no acute fracture, remote injury CT interpreted by me (1pt min.). @ -CT brain shows right frontal lobe cortical contusion, large right frontal and periorbital soft tissue hematoma, nonspecific white matter changes likely chronic small vessel disease, no acute C-spine fracture, no facial bone fracture U/S interpreted by me (1pt. min.). @ -None done What testing was considered but not performed or refused? (CT, X-rays, U/S, labs)? Why? @ -None What meds were considered but not given or refused? Why? @ -None Did you discuss the management of the patient with other professionals (professionals i.e. , PA, DIVISION DIRECTOR, lab, RT, psych nurse, social work assistant, product picker, teacher, control systems drafting officer, housing case manager)? Give summary @ -Management discussed with radiology who called critical results to Dr. Leiva Case discussed with [facility] transfer, patient accepted by Dr. Polo Was smoking cessation discussed for >3mins.? @ -No Was critical care preformed (if so, how long)? @ -35 min Were there social determinants of health that impacted care today? How? (Homelessness, low income, unemployed, alcoholism, drug addiction, transportati on, low edu. Level, literacy, decrease access to med. care, residential, rehab)? @ -No Was there de-escalation of care discussed even if they declined (Discuss DNR or withdrawal of care, Hospice)? DNR status @ -No What co-morbidities impacted this encounter? (DM, HTN, Smoking, COPD, CAD, Cancer, CVA, ARF, Chemo, Hep., AIDS, mental health diagnosis, sleep apnea, morbid obesity)? @ -None Was patient admitted / discharged? Hospital course, mention meds given and route, prescriptions, significant lab abnormalities, going to OR and other pertinent info. @ -Transferred. Patient presented to the emergency department for evaluation of fall with head injury. Patient A&Ox4, no apparent distress, acting appropriately according to family. Patient reports that this occurred around 10:30 AM this morning. She denies loss of consciousness. Denies blood thinners. Patient has a large forehead hematoma and periorbital swelling. The eye was visualized without obvious ocular injury. CT brain and frontal bones were obtained revealing a right frontal lobe cortical contusion and a large frontal and orbital periorbital soft tissue hematoma, nonspecific white matter changes. This likely chronic small vessel disease, no acute C-spine fracture, no acute facial bone fracture. Radiology called with critical results to Dr. Leiva patient was advised on the findings and discussed plan for transfer. The patient was accepted at [facility] by Dr. Polo. Patient was provided 4 mg of IV morphine and a Cardene drip was ordered. Labs were ordered in the meantime while awaiting EMS transport. CBC, coagulation studies essentially unremarkable, mild hyponatremia 134 but unactionable at this time. Patient transferred via ambulance to [facility]. Case was discussed with Dr. Leiva Undiagnosed new problem with uncertain prognosis? @ -No Drug Therapy requiring intensive monitoring for toxicity (Heparin, Nitro, Insulin, Cardizem)? @ -No Were any procedures done? @ -No Diagnosis/symptom? @ -Cortical contusion, intra parenchymal hemorrhage Acute, or Chronic, or Acute on Chronic? @ -Acute Uncomplicated (without systemic symptoms) or Complicated (systemic symptoms)? @ -Complicated Side effects of treatment? @ -No Exacerbation, Progression, or Severe Exacerbation? @ -No Poses a threat to life or bodily function? How? (Chest pain, [place], [place], pneumonia, PE, COPD, DKA, ARF, appy, cholecystitis, CVA, Diverticulitis, Homicidal, Suicidal, threat to staff... and all critical care pts) @ -Yes - Lab Data Result diagrams: 04/02/24 14:55 04/02/24 14:55 Lab Results 04/02/24 04/02/24 Range/Units 14:55 14:55 WBC 9.9 (3.8-10.6) k/uL RBC 3.96 (3.80-5.40) m/uL Hgb 11.6 (11.4-16.0) gm/dL Hct 35.4 (34.0-46.0) % MCV 89.4 (80.0-100.0) fL MCH 29.3 (25.0-35.0) pg MCHC 32.8 (31.0-37.0) g/dL RDW 14.4 (11.5-15.5) % Plt Count 177 (150-450) k/uL MPV 8.4 Neutrophils % 83 % Lymphocytes % 11 % Monocytes % 3 % Eosinophils % 3 % Basophils % 0 % Neutrophils # 8.2 H (1.3-7.7) k/uL Lymphocytes # 1.1 (1.0-4.8) k/uL Monocytes # 0.3 (0-1.0) k/uL Eosinophils # 0.3 (0-0.7) k/uL Basophils # 0.0 (0-0.2) k/uL Sodium 134 L (137-145) mmol/L Potassium 4.0 (3.5-5.1) mmol/L Chloride 98 (98-107) mmol/L Carbon Dioxide 25 (22-30) mmol/L Anion Gap 11 mmol/L BUN 10 (7-17) mg/dL Creatinine 0.77 (0.52-1.04) mg/dL Est GFR (CKD-EPI)AfAm 83 (>60 ml/min/1.73 sqM) Est GFR (CKD-EPI)NonAf 72 (>60 ml/min/1.73 sqM) Glucose 189 H (74-99) mg/dL Calcium 9.7 (8.4-10.2) mg/dL Total Bilirubin 0.8 (0.2-1.3) mg/dL AST 23 (14-36) U/L ALT 14 (4-34) U/L Alkaline Phosphatase 84 (38-126) U/L Total Protein 7.9 (6.3-8.2) g/dL Albumin 4.5 (3.5-5.0) g/dL Critical Care Time Critical Care Time: Yes Total Critical Care Time: 35 Disposition Clinical Impression: Fall, Cortical contusion, Scalp hematoma Disposition: OTHER INSTITUTION NOT DEFINED Condition: Stable Is patient prescribed a controlled substance at d/c from ED?: No Referrals: Chad Jean DO [Primary Care Provider] - 1-2 days - Out of Hospital Transfer - Req. Specs Out of Hospital Transfer - Requested Specifics: Other Emergency Center ([facility])
[2024-04-02 15:04] LABS: Basophils % (A) 0 %; Eosinophils # (A) 0.3 k/uL (0-0.7); Eosinophils % (A) 3 %; HCT 35.4 % (34.0-46.0); HGB 11.6 gm/dL (11.4-16.0); Lymphocytes # (A) 1.1 k/uL (1.0-4.8); Lymphocytes % (A) 11 %; MCH 29.3 pg (25.0-35.0); MCHC 32.8 g/dL (31.0-37.0); MCV 89.4 fL (80.0-100.0); Mean Platelet Volume 8.4; Monocytes # (A) 0.3 k/uL (0-1.0); Monocytes % (A) 3 %; Neutrophils # (A) 8.2 k/uL (1.3-7.7); Neutrophils % (A) 83 %; Platelet Count 177 k/uL (150-450); RBC 3.96 m/uL (3.80-5.40); RDW 14.4 % (11.5-15.5); WBC 9.9 k/uL (3.8-10.6)
[2024-04-02] MEDS: niCARdipine 20 MG in SODIUM CHLORIDE 0.9% 192 ML IV SCH (15:11)
[2024-04-02 15:13] LABS: ALT 14 U/L (4-34); AST 23 U/L (14-36); African American GFR (CKD) 83 (>60 ml/min/1.73 sqM); Albumin 4.5 g/dL (3.5-5.0); Alkaline Phosphatase 84 U/L (38-126); Anion Gap 11 mmol/L; Blood Urea Nitrogen 10 mg/dL (7-17); Calcium 9.7 mg/dL (8.4-10.2); Carbon Dioxide 25 mmol/L (22-30); Chloride 98 mmol/L (98-107); Glucose 189 mg/dL (74-99); Non-African American GFR(CKD) 72 (>60 ml/min/1.73 sqM); Sodium 134 mmol/L (137-145); Total Bilirubin 0.8 mg/dL (0.2-1.3); Total Protein 7.9 g/dL (6.3-8.2)
[2024-04-02 15:20] VITALS: BP 186/77; PULSE 62; RESP 20
[2024-04-02 15:31] LABS: Partial Thromboplastin Time 22.4 sec (22.0-30.0); Prothrombin Time 10.9 sec (10.0-12.5)
== END 2024-04-02 15:19 | disposition other institution (70) ==
LOC: EC 12:44
DX: S00.03XA Contusion of scalp, initial encounter (principal); Z87.891 Personal history of nicotine dependence; Z91.041 Radiographic dye allergy status; W01.0XXA Fall on same level from slipping, tripping and stumbling without subsequent striking against object, initial encounter
CPT/HCPCS: 36415; 80053; 85025; 85610; 85730; 73110; 72125; 70486; 70450; 99285; 96374; 96375; J2270; J2405

== ENCOUNTER → 2024-04-09 | Outpatient (CLI) | payer MEDICARE, BC ==
--- NOTE | 2024-04-09 13:36 | XR ---
EXAMINATION TYPE: XR wrist complete RT DATE OF EXAM: 04/09/2024 11:34 AM COMPARISON: 04/02/2024 CLINICAL INDICATION: Female, 83 years old with history of M25.531 Right wrist pain, pain TECHNIQUE: 4 view(s) obtained. FINDINGS: No acute fractures are evident. There may be an old avulsion of the ulnar styloid. Joint spaces appea r to have mild narrowing. Soft tissue swelling may be over the dorsum of the wrist. Follow-up can be performed as clinically indicated. If there is pain at the anatomic snuff box, nucle ar medicine bone scan could be performed for additional evaluation. IMPRESSION: 1. No acute or subacute fractures identified. 2. Soft tissue swelling dorsum of wrist [facility], , 04/09/2024 1:33 PM
== END | disposition home or self-care (01) ==
LOC: RADXRMAIN 11:16
PROVIDERS: ATTEND Family Medicine
DX: M25.531 Pain in right wrist (principal); M79.89 Other specified soft tissue disorders

== ENCOUNTER 2024-07-23 10:23 | Emergency (ER) | payer MEDICARE, BC ==
[2024-07-23 10:27] VITALS: BP 179/76; PULSE 82; RESP 16; TEMP 98.5
--- NOTE | 2024-07-23 10:53 | ED ---
General Adult HPI - General Chief complaint: Fall Stated complaint: Fall-back pain Time Seen by Provider: 07/23/24 10:29 Source: patient, RN notes reviewed Mode of arrival: ambulatory Limitations: no limitations - History of Present Illness Initial comments: 83 year old female presents to the ED for worsening pain in the tailbone area. She states that she fell about 1.5 weeks ago while going up the stairs. She wanted to come in to confirm that there is no concerning findings since she is still not feeling better and can't get into a comfortable position while sitting or lying down. She denies any bruising, swelling, or bleeding around the tailbone. Patient denies any bowel, bladder incontinence retention no saddle anesthesias. No lower extremity weakness. No difficulty walking. - Related Data Home Medications Medication Instructions Recorded Confirmed Aspirin 81 mg PO BID 03/28/14 10/16/22 Atorvastatin [Lipitor] 40 mg PO HS 03/28/14 10/16/22 Omeprazole [PriLOSEC] 20 mg PO DAILY PRN 03/28/14 10/16/22 Alendronate Sodium [Fosamax] 70 mg PO CORDOVA 03/19/17 10/16/22 Meclizine [Antivert] 25 mg PO TID PRN 03/19/17 10/16/22 Chloride Silver 2 tbsp PO DAILY 11/11/18 10/16/22 [place] 1 tsp PO DAILY 11/11/18 10/16/22 metFORMIN HCL [Glucophage] 500 mg PO BID 11/11/18 10/16/22 Losartan Potassium 100 mg PO DAILY 03/22/19 10/16/22 Levothyroxine Sodium 150 mcg PO DAILY 05/18/19 10/16/22 Triamterene-Hctz 37.5-25Mg 1 cap PO DAILY PRN 04/18/20 10/16/22 [Dyazide 37.5-25 Capsule] amLODIPine [Norvasc] 2.5 mg PO DAILY 04/18/20 10/16/22 Multivitamins, Thera [Multivitamin 1 tab PO DAILY 10/16/22 10/16/22 (formulary)] Allergies Allergy/AdvReac Type Severity Reaction Status Date / Time Iodinated Contrast Media Allergy Intermediate Rash/Hives Verified 07/23/24 10:27 [Iodinated Contrast Media - IV Dye] Review of Systems ROS Statement: Those systems with pertinent positive or pertinent negative responses have been documented in the HPI. ROS Other: All systems not noted in ROS Statement are negative. 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 History of Any Multi-Drug Resistant Organisms: None Reported Past Surgical History: Cholecystectomy, Heart Catheterization With Stent, Hernia Repair, Hysterectomy Additional Past Surgical History / Comment(s): , BROKEN RIBS IN THE PAST 2 STENTS MAYBE 3-4 YRS AGO, Past Anesthesia/Blood Transfusion Reactions: No Reported Reaction Date of Last Stent Placement:: 04/07/2013 Past Psychological History: Anxiety Smoking Status: Former smoker Past Alcohol Use History: None Reported Past Drug Use History: None Reported - Past Family History Mother Family Medical History: No Reported History Additional Family Medical History / Comment(s): DEMENTIA Father Family Medical History: No Reported History Additional Family Medical History / Comment(s): OLD AGE General Exam Limitations: no limitations General appearance: alert, in no apparent distress Head exam: Present: atraumatic, normocephalic, normal inspection Neck exam: Present: normal inspection, full ROM. Absent: tenderness, meningismus, lymphadenopathy Respiratory exam: Present: normal lung sounds bilaterally. Absent: respiratory distress, wheezes, rales, rhonchi, stridor Cardiovascular Exam: Present: regular rate, normal rhythm, normal heart sounds. Absent: systolic murmur, diastolic murmur, rubs, gallop, clicks GI/Abdominal exam: Present: soft, normal bowel sounds. Absent: distended, tenderness, guarding, rebound, rigid Extremities exam: Present: normal inspection, full ROM (neurovascularly intact, full ROM bilaterally with 5/5 strength ) Back exam: Present: full ROM, tenderness (localized to the sacral area ), other Neurological exam: Present: alert, oriented X3, reflexes normal. Absent: motor sensory deficit Course Vital Signs 07/23/24 10:24 Temperature 98.5 F Pulse Rate 82 Respiratory 16 Rate Blood Pressure 179/76 O2 Sat by Pulse 97 Oximetry Medical Decision Making - Medical Decision Making Was pt. sent in by a medical professional or institution ([facility], [employer], urgent care, hospital, or long term...) When possible be specific @ -No Did you speak to anyone other than the patient for history (EMS, parent, family, police, friend...)? What history was obtained from this source @ -No Did you review nursing and triage notes (agree or disagree)? Why? @ -I reviewed and agree with nursing and triage notes Were old charts reviewed (outside hosp., previous admission, EMS record, old EKG, old radiological studies, urgent care reports/EKG's, long term records)? Report findings @ -No old charts were reviewed Differential Diagnosis (chest pain, altered mental status, abdominal pain women, abdominal pain men, vaginal bleeding, weakness, fever, dyspnea, syncope, headache, dizziness, GI bleed, back pain, seizure, CVA, palpatations, mental health, musculoskeletal)? @ -Fall, lumbar fracture, sacral contusion, sacral fracture, pelvic fracture EKG interpreted by me (3pts min.). @ -None X-rays interpreted by me (1pt min.). @ -X-ray lumbar spine negative for acute fracture x-ray pelvis 1 view no acute fracture CT interpreted by me (1pt min.). @ -None done U/S interpreted by me (1pt. min.). @ -None done What testing was considered but not performed or refused? (CT, X-rays, U/S, labs)? Why? @ -None What meds were considered but not given or refused? Why? @ -None Did you discuss the management of the patient with other professionals (professionals i.e. , [facility], [employer], lab, RT, psych nurse, social media community manager, union organizer, teacher, head correction officer, casey saw operator)? Give summary @ -No Was smoking cessation discussed for >3mins.? @ -No Was critical care preformed (if so, how long)? @ -No Were there social determinants of health that impacted care today? How? (Homelessness, low income, unemployed, alcoholism, drug addiction, transportation, low edu. Level, literacy, decrease access to med. care, care home, rehab)? @ -No Was there de-escalation of care discussed even if they declined (Discuss DNR or withdrawal of care, Hospice)? DNR status @ -No What co-morbidities impacted this encounter? (DM, HTN, Smoking, COPD, CAD, Cancer, CVA, ARF, Chemo, Hep., AIDS, mental health diagnosis, sleep apnea, morbid obesity)? @ -None Was patient admitted / discharged? Hospital course, mention meds given and route, prescriptions, significant lab abnormalities, going to OR and other pertinent info. @Discharge patient presented for fall, low back sacral discomfort patient had negative x-rays patient has sacral contusion we discharged in stable condition return for as discussed. Undiagnosed new problem with uncertain prognosis? @ -No Drug Therapy requiring intensive monitoring for toxicity (Heparin, Nitro, Insulin, Cardizem)? @ -No Were any procedures done? @ -No Diagnosis/symptom? @Fall, buttock contusion Acute, or Chronic, or Acute on Chronic? @ -Acute Uncomplicated (without systemic symptoms) or Complicated (systemic symptoms)? @ -Uncomplicated Side effects of treatment? @ -No Exacerbation, Progression, or Severe Exacerbation? @ -No Poses a threat to life or bodily function? How? (Chest pain, [place], [place], pneumonia, PE, COPD, DKA, ARF, appy, cholecystitis, CVA, Diverticulitis, Homicidal, Suicidal, threat to staff... and all critical care pts) @ -No Disposition Clinical Impression: Fall, Sacral contusion Disposition: HOME SELF-CARE Condition: Stable Instructions (If sedation given, give patient instructions): Contusion in Adults (ED) Additional Instructions: Please return to the Emergency Department if symptoms worsen or any other concerns. Is patient prescribed a controlled substance at d/c from ED?: No Referrals: Chad Jean DO [Primary Care Provider] - 1-2 days Time of Disposition: 12:27
--- NOTE | 2024-07-23 11:33 | XR ---
EXAMINATION TYPE: XR pelvis AP view DATE OF EXAM: 07/23/2024 CLINICAL INDICATION: Female, 83 years old with history of fall, pain TECHNIQUE: A single AP view of the pelvis is obtained. COMPARISON: CT 2019. FINDINGS: There is no acute fracture/dislocation evident in the pelvis. Symmetric moderate narrowing of both hip joints is redemonstrated. Sacroiliac joints are preserved. Pubic symphysis is intact. T he overlying soft tissue appears unremarkable. IMPRESSION: There is no acute fracture or dislocation in the pelvis. [facility], , 07/23/2024 11:31 AM
--- NOTE | 2024-07-23 11:35 | XR ---
EXAMINATION TYPE: XR lumbosacral spine min 4V DATE OF EXAM: 07/23/2024 CLINICAL INDICATION: Female, 83 years old with history of fall, pain, TECHNIQUE: Frontal, lateral, and oblique images of the lumbar spine are obtained. COMPARISON: None FINDINGS: Osseous structures are demineralized which is noted to lower radiographic sensitivity. The re are 5 lumbar type vertebral bodies identified. The lumbar spine shows satisfactory alignment with out evidence of acute fracture or dislocation. Vertebral body heights are within normal limits. There is mild to moderate disc space narrowing and anterior spurring at L4-L5 and L5-S1 levels The obliqu e images appear within normal limits. Cholecystectomy clips and vascular calcification is seen in the overlying soft tissue. IMPRESSION: No acute fracture or dislocation is seen in the lumbar spine. [facility], , 07/23/2024 11:32 AM
== END 2024-07-23 12:56 | disposition home or self-care (01) ==
LOC: EC 10:23
DX: S30.0XXA Contusion of lower back and pelvis, initial encounter (principal); Z87.891 Personal history of nicotine dependence; Z91.041 Radiographic dye allergy status; W10.8XXA Fall (on) (from) other stairs and steps, initial encounter
CPT/HCPCS: 72110; 72170; 99283